=== PATIENT | male | born 1945 | race Caucasian/White ===

== ENCOUNTER 2017-02-11 07:54 | Inpatient (IN) | payer MEDICARE, OTHER ==
[2017-02-11] VITALS (8 sets, daily range): BP systolic 146–187; BP diastolic 82–100; PULSE 82–112; RESP 16–24; TEMP 98.4–102.7; O2SAT 94–98
[~2017-02-11] VITALS: Ht 175.3 cm; Wt 99.0 kg
[~2017-02-11 07:54] MED LIST: ALLO300T2 PO; BETH10TA PO; CARV6.25 PO; CLOP75 PO; CRES20TA PO; EMPA1TAB PO; ERGO50000 PO; IMDU30TA PO; JANU50TA9 PO; LISI-360 PO; MULT1TAB PO; NEUR800T PO; NIAS10004 PO; NITR.4 SL; NORC10TA2 PO; NOVOLOGP2 IMPLANPUMP; PRIM50 PO; PROT40TA PO; TOPA50TA6 PO; UROCTAB2 PO
--- NOTE | 2017-02-11 08:07 | PD ---
HPI Chief Complaint: Neuro Symptoms/ Deficits Time Seen by Provider: 08:07 Travel History International Travel<30 days: No Contact w/Intl Traveler<30days: No Traveled to known affect area: No History of Present Illness HPI 71-year-old male came to the emergency room with history of fever and not feeling well. He is brought in by his sister who is his clutch mechanic. Sister is giving most of the history. Patient has history of significant essential tremor and about a week ago had a deep brain nerve stimulator implanted at [facility]. As per her the surgery went great and he was discharged home the next day. Since then he has been doing fantastic. However yesterday when he went to work he was doing okay but when he came back home he said he was not feeling well and wanted to sleep. This morning he continued to say he wasn't feeling well and his temperature was 101.5. That's when she decided to bring him to the emergency room. Patient is not coughing. No vomiting or diarrhea. He takes Plavix and he resumed his Plavix yesterday after 2 weeks of not taking it. He is complaining of some headache. [facility] Past Medical History Narrative Medical List of his past medical, surgical, social and family history was reviewed from the nursing note. Blood Disorders: No Bipolar Disorder: No Depression: Yes Cancer: No Cardiac Catheterization: Yes Cardiomyopathy: Yes Cardiovascular Problems: Yes High Cholesterol: Yes Chest Pain: Yes Congestive Heart Failure: Yes Coronary Artery Disease: Yes Diabetes: Yes Diminished Hearing: No Endocrine: Yes (insulin pump) Gastrointestinal Disorders: Yes (QUESTIONABLE GASTROPARESIS) Genitourinary: Yes Headaches: Yes Hepatitis: No Hiatal Hernia: No Hypertension: Yes Immune Disorder: No Implanted Vascular Access Dvce: Yes Kidney Stones: Yes Musculoskeletal: Yes (BLE PAIN) Neurologic: Yes (HAND TREMORS) Psychiatric: No Reproductive: No Respiratory: No Myocardial Infarction: Yes (3) Thyroid Disease: No Past Surgical History Abdominal Surgery: Yes (A.P AND CHOLYCESTECTOMY.) AICD: No Appendectomy: Yes Body Medical Devices: INSULIN PUMP, 9 STENTS Cardiac Surgery: Yes (STENTS 2004 AND 2010 , ) Cholecystectomy: Yes Coronary Stent: Yes (X9) Ear Surgery: No Endocrine Surgery: No Eye Surgery: No Genitourinary Surgery: Yes (KIDNEY STONE REMOVED) Gynecologic Surgery: No Insulin Pump: Yes Joint Replacement: No Neurologic Surgery: Yes Oral Surgery: No Pacemaker: No Thoracic Surgery: No Tonsillectomy: Yes Other Surgery: Yes (cholestectomy 9 stents appendectomy) Social History Alcohol Use: No Tobacco Use: No Substance Use: No Allergies-Medications (Allergen,Severity, Reaction): Coded Allergies: diatrizoate meglumine (Unverified Allergy, Unknown, 02/02/17) gadobenic acid (Unverified Allergy, Unknown, 02/02/17) gadodiamide (Unverified Allergy, Unknown, 02/02/17) gadoteridol (Unverified Allergy, Unknown, 02/02/17) iodixanol (Unverified Allergy, Unknown, 02/02/17) iohexol (Unverified Allergy, Unknown, 02/02/17) Comments List of his allergies reviewed from the nursing note. Reported Meds & Prescriptions Reported Meds & Active Scripts Active Reported Oxycodone (Oxycodone HCl) 5 Mg Cap 5 Mg PO Q4H PRN Isosorbide Mononitrate ER (Isosorbide Mononitrate) 30 Mg Parul 90 Mg PO BID Bupropion HCl 100 Mg Tab 100 Mg PO HS Topamax (Topiramate) 100 Mg Tab 100 Mg PO BID Propranolol (Propranolol HCl) 60 Mg Tab 60 Mg PO Q12HR Lisinopril 2.5 Mg Tab 2.5 Mg PO DAILY Primidone 50 Mg Tab 150 Mg PO BID [place] (Hydrocodone-Acetaminophen) 10-325 Mg Tab 1 Tab PO Q6H PRN Neurontin (Gabapentin) 800 Mg Tab 1,600 Mg PO BID Janumet (Sitagliptin-Metformin) 50-1,000 Mg Tab 1 Tab PO BID Atorvastatin (Atorvastatin Calcium) 40 Mg Tab 40 Mg PO HS Niaspan (Niacin ER) 1,000 Mg Tab 1,000 Mg PO HS Plavix (Clopidogrel Bisulfate) 75 Mg Tab 75 Mg PO DAILY Coreg (Carvedilol) 6.25 Mg Tab 6.25 Mg PO BID Urocit-K 10 (Potassium Citrate (Alkalinizer)) 1,080 Mg Tab 10 Meq PO DAILY Centrum Silver Men Tablet (Multivit-Min/FA/Lycopen/Lutein) 1 Each Tablet 1 Tab PO DAILY Narrative Medication List of his home medications reviewed from the nursing note. Review of Systems Except as stated in HPI: all other systems reviewed are Neg Physical Exam Narrative GENERAL: Awake, alert, moderate distress SKIN: Focused skin assessment warm/dry. 3 scalp surgical wounds that seemed to be healing good. There is left subclavicular wound where the stimulator was implanted and the wound appears to be dry and healing well. HEAD: Atraumatic. Normocephalic. EYES: Pupils equal and round. No scleral icterus. No injection or drainage. ENT: No nasal bleeding or discharge. Mucous membranes pink and moist. NECK: Trachea midline. No JVD. Neck is supple and no signs of meningismus. CARDIOVASCULAR: Regular rate and rhythm. No murmur appreciated. RESPIRATORY: No accessory muscle use. Clear to auscultation. Breath sounds equal bilaterally. GASTROINTESTINAL: Abdomen soft, non-tender, nondistended. Hepatic and splenic margins not palpable. MUSCULOSKELETAL: No obvious deformities. No clubbing. No cyanosis. No edema. NEUROLOGICAL: Awake and alert. No obvious cranial nerve deficits. Motor grossly within normal limits. Normal speech. PSYCHIATRIC: Appropriate mood and affect; insight and judgment normal. Data Data Last Documented VS Vital Signs Date Time Temp Pulse Resp B/P (MAP) Pulse Ox O2 Delivery O2 Flow Rate FiO2 02/11/17 11:00 97 16 163/91 (115) 96 02/11/17 09:43 Nasal Cannula 2.00 02/11/17 07:56 98.4 Orders Orders Complete Blood Count With Diff (02/11/17 08:15) Comprehensive Metabolic Panel (02/11/17 08:15) Prothrombin Time / Inr (Pt) (02/11/17 08:15) Lactic Acid Sepsis Protocol (02/11/17 08:15) Urinalysis - C+S If Indicated (02/11/17 08:15) Blood Culture (02/11/17 08:15) Chest, Single Ap (02/11/17 08:15) Blood Glucose (02/11/17 08:15) Ecg Monitoring (02/11/17 08:15) Iv Access Insert/Monitor (02/11/17 08:15) Oximetry (02/11/17 08:15) Oxygen Administration (02/11/17 08:15) Ct Brain W/O Iv Contrast(Rout) (02/11/17 08:15) Morphine Inj (Morphine Inj) (02/11/17 08:15) Ondansetron Inj (Zofran Inj) (02/11/17 08:15) Sodium Chlorid 0.9% 500 Ml Inj (Ns 500 M (02/11/17 08:15) Urine Culture (02/11/17 08:28) Sodium Chlor 0.9% 1000 Ml Inj (Ns 1000 M (02/11/17 09:30) Piperacil-Tazo 4.5 Gm Premix (Zosyn 4.5 (02/11/17 10:15) Vancomycin Inj (Vancomycin Inj) (02/11/17 10:15) Fentanyl Inj (Fentanyl Inj) (02/11/17 11:00) Admit Order (Ed Use Only) (02/11/17 11:48) Labs Laboratory Tests Test 02/11/17 08:20 02/11/17 08:28 02/11/17 11:30 White Blood Count 14.2 TH/MM3 Red Blood Count 4.02 MIL/MM3 Hemoglobin 12.9 GM/DL Hematocrit 40.3 % Mean Corpuscular Volume 100.4 FL Mean Corpuscular Hemoglobin 32.2 PG Mean Corpuscular Hemoglobin Concent 32.1 % Red Cell Distribution Width 13.6 % Platelet Count 196 TH/MM3 Mean Platelet Volume 7.5 FL Neutrophils (%) (Auto) 88.0 % Lymphocytes (%) (Auto) 5.8 % Monocytes (%) (Auto) 6.1 % Eosinophils (%) (Auto) 0.0 % Basophils (%) (Auto) 0.1 % Neutrophils # (Auto) 12.5 TH/MM3 Lymphocytes # (Auto) 0.8 TH/MM3 Monocytes # (Auto) 0.9 TH/MM3 Eosinophils # (Auto) 0.0 TH/MM3 Basophils # (Auto) 0.0 TH/MM3 CBC Comment DIFF FINAL Differential Comment Prothrombin Time 11.5 SEC Prothromb Time International Ratio 1.0 RATIO Blood Urea Nitrogen 27 MG/DL Creatinine 1.58 MG/DL Random Glucose 311 MG/DL Total Protein 7.1 GM/DL Albumin 3.5 GM/DL Calcium Level 8.9 MG/DL Alkaline Phosphatase 84 U/L Aspartate Amino Transf (AST/SGOT) 38 U/L Alanine Aminotransferase (ALT/SGPT) 30 U/L Total Bilirubin 1.3 MG/DL Sodium Level 134 MEQ/L Potassium Level 4.2 MEQ/L Chloride Level 99 MEQ/L Carbon Dioxide Level 22.2 MEQ/L Anion Gap 13 MEQ/L Estimat Glomerular Filtration Rate 44 ML/MIN Urine Color YELLOW Urine Turbidity CLEAR Urine pH 6.0 Urine Specific [place] 1.026 Urine Protein 300 mg/dL Urine Glucose (UA) 1000 mg/dL Urine Ketones 80 mg/dL Urine Occult Blood MOD Urine Nitrite NEG Urine Bilirubin NEG Urine Urobilinogen LESS THAN 2.0 MG/DL Urine Leukocyte Esterase NEG Urine RBC 2 /hpf Urine WBC 1 /hpf Urine Squamous Epithelial Cells <1 /hpf Urine Bacteria OCC /hpf Urine Hyaline Casts 3 /lpf Urine Mucus FEW /lpf Microscopic Urinalysis Comment CATH-CULTURE IND Lactic Acid Level 2.3 mmol/L 1.4 mmol/L MDM Medical Decision Making Medical Screen Exam Complete: Yes Emergency Medical Condition: Yes Medical Record Reviewed: Yes Differential Diagnosis Sepsis, meningitis, postop fever, UTI, pneumonia Narrative Course 11:46 AM blood test results are back. Patient has leukocytosis and elevated lactic acid. He was given total of 1500 ML's of fluid and IV Zosyn and IV vancomycin as per sepsis protocol. I discussed the case with patient's neurosurgeon from [facility] Dr. Crum. As per him patient could not have infection from the surgical implantation. CT scan just shows postop changes. As per him there is no particular reason to be transferring the patient to [place] and it's okay for him to be admitted at [facility]. The hospitalist at [facility] could communicate with him or his group for any further assistance. I discussed the case with the hospitalist who has accepted. I discussed it with patient's sister regarding the plan and she is happy with it. Critical Care Narrative Aggregate critical care time was 30 minutes. Time to perform other separately billable procedures was not included in the critical care time. My time did not include minutes spent treating any other patients simultaneously or on activities that did not directly contribute to the patient's treatment. The services I provided to this patient were to treat and/or prevent clinically significant deterioration that could result in: Sepsis, sepsis protocol I provided critical care services requiring my management, as noted below: Chart data review, documentation time, medication orders and management, vital sign assessments/reviewing monitor data, ordering and reviewing lab tests, ordering and interpreting/reviewing x-rays and diagnostic studies, care of the patient and discussion of the patient with the admitting physicians. Procedures EKG Prior to Arrival: No Physician Communication Physician Communication Dr. Dunaway from [facility] Diagnosis Primary Impression: Sepsis Qualified Codes: A41.9 - Sepsis, unspecified organism Admitting Information Admitting Physician Requests: Rafael Sharma MD Feb 11, 2017 08:07
[2017-02-11] MEDS ORDERED: ONDANSETRON HCL 4 MG/2 ML VIAL IV PUSH ONE (08:15)
[2017-02-11] MEDS ORDERED: SODIUM CHLORID 0.9% 500 ML INJ 500 ML IV ONE (08:15)
[2017-02-11] MEDS ORDERED: MORPHINE SULFATE 8 MG/ML INJ IV PUSH ONE (08:15)
[2017-02-11] MEDS ORDERED: MULT1TAB64 PO (08:58)
[2017-02-11] MEDS ORDERED: JANU50TA8 PO (08:58)
[2017-02-11] MEDS ORDERED: UROCTAB2 PO (08:58)
[2017-02-11] MEDS ORDERED: CARV6.25 PO (08:58)
[2017-02-11] MEDS ORDERED: PLAV75TA29 PO (08:58)
[2017-02-11] MEDS ORDERED: ATOR40TA16 PO (08:58)
[2017-02-11] MEDS ORDERED: NIAS1000 PO (08:58)
[2017-02-11] MEDS ORDERED: PRIM50TA5 PO (08:59)
[2017-02-11] MEDS ORDERED: ISOS30TA3 PO (08:59)
[2017-02-11] MEDS ORDERED: OXYC1CAP PO (08:59)
[2017-02-11] MEDS ORDERED: HYDR-3366 PO (08:59)
[2017-02-11] MEDS ORDERED: BUPR100T4 PO (08:59)
[2017-02-11] MEDS ORDERED: LISI2.5T3 PO (08:59)
[2017-02-11] MEDS ORDERED: NEUR800T PO (08:59)
[2017-02-11] MEDS ORDERED: PROP60TA PO (08:59)
[2017-02-11] MEDS ORDERED: TOPA100T11 PO (08:59)
[2017-02-11 09:00] LABS: AUTOMATED NEUTROPHIL # 12.5 TH/MM3 (1.8-7.7); BASOPHIL % 0.1 % (0.0-2.0); HEMATOCRIT 40.3 % (39.0-51.0); HEMO FLAGS DIFF FINAL; LYMPH % 5.8 % (9.0-44.0); LYMPHOCYTE # 0.8 TH/MM3 (1.0-4.8); MEAN CELL VOLUME 100.4 FL (80.0-100.0); MEAN CORPUSCULAR HEMOGLOBIN 32.2 PG (27.0-34.0); MEAN CORPUSCULAR HGB CONC 32.1 % (32.0-36.0); MONO % 6.1 % (0.0-8.0); PLATELET COUNT 196 TH/MM3 (150-450); RED BLOOD COUNT 4.02 MIL/MM3 (4.50-5.90); RED CELL DISTRIBUTION WIDTH 13.6 % (11.6-17.2); WHITE BLOOD COUNT 14.2 TH/MM3 (4.0-11.0)
[2017-02-11 09:06] LABS: BACTERIA, URINE OCC /hpf; BLOOD, URINE MOD (NEG); GLUCOSE,URINE 1000 mg/dL (NEG); HYALINE CAST, URINE 3 /lpf (RARE); KETONE, URINE 80 mg/dL (NEG); MUCUS URINE FEW /lpf (OCC); NITRITE,URINE NEG (NEG); SQUAMOUS EPITHELIAL CELL URINE <1 /hpf (0-5); URINE COLOR YELLOW (YELLW/STRAW)
--- NOTE | 2017-02-11 09:06 | RADRPT ---
EXAM DATE/TIME: 02/11/2017 08:26 [facility] COMPARISON: CHEST SINGLE AP, March 13, 2015, 10:04. INDICATIONS : Fever, congestion. MEDICAL HISTORY : Hypertension. Myocardial infarction. Diverticulosis. CHF. SURGICAL HISTORY : Coronary artery stent. DBS battery pack. ENCOUNTER: Initial ACUITY: 2 days PAIN SCORE: 0/10 LOCATION: Bilateral chest FINDINGS: Underinflated AP view of the chest demonstrates a normal-sized cardiac silhouette. No effusion or pne umothorax is identified. Bones and soft tissues demonstrate no acute finding. Left chest wall neurost imulator device is present with lead tips extending into the left neck. CONCLUSION: Underinflation with mild atelectasis at the lung bases. No acute cardiopulmonary abnormality is visua lized. Martir Cummings MD on February 11, 2017 at 9:02 Board Certified Radiologist. This report was verified electronically.
[2017-02-11 09:09] LABS: PROTHROMBIN TIME - PATIENT 11.5 SEC (9.8-11.6)
[2017-02-11 09:14] LABS: COMMENT (UR) CATH-CULTURE IND; CULTURE IF INDICATED CATH CULTURE IND
[2017-02-11] MEDS ORDERED: SODIUM CHLOR 0.9% 1000 ML INJ 1,000 ML IV ONE (09:30)
--- NOTE | 2017-02-11 09:39 | RADRPT ---
EXAM DATE/TIME: 02/11/2017 08:53 [facility] COMPARISON: CT BRAIN W/O CONTRAST, July 16, 2014, 9:58. INDICATIONS : 2 days post op neurotransmitter implant. Fever, weakness. RADIATION DOSE: 41.37 CTDIvol (mGy) MEDICAL HISTORY : Cardiovascular disease. Tremors SURGICAL HISTORY : Appendectomy. Cholecystectomy.Coronary artery stent.neurotransmitter implant ENCOUNTER: Initial ACUITY: 2 days PAIN SCALE: 0/10 LOCATION: cranial TECHNIQUE: Multiple contiguous axial images were obtained of the head. Using automated exposure control and adj ustment of the mA and/or kV according to patient size, radiation dose was kept as low as reasonably a chievable to obtain optimal diagnostic quality images. DICOM format image data is available electro nically for review and comparison. FINDINGS: CEREBRUM: There is mild cerebral atrophy. Ventricles are normal. There is a left frontal deep brain stimulator lead present with distal tip in the region of the left basal ganglia and thalamus. There is extra-axi al air in the left frontal high convexity and air in the left temporal horn. No evidence of midline shift, mass lesion, hemorrhage or acute infarction. No extra-axial fluid collections are seen. POSTERIOR FOSSA: The cerebellum and brainstem demonstrate no acute finding. The 4th ventricle is midline. The cerebe llopontine angle is unremarkable. EXTRACRANIAL: There is left lateral scalp edema adjacent to the stimulator lead. SKULL: The calvaria is intact. No evidence of skull fracture. CONCLUSION: 1. There is intracranial air and left scalp edema, consistent with deep brain stimulator placement 2 days ago. The distal tip of the deep brain stimulator is in the region of the left basal ganglia and thalamus. 2. Otherwise, no acute finding is identified. Martir Cummings MD on February 11, 2017 at 9:22 Board Certified Radiologist. This report was verified electronically.
[2017-02-11 09:45] LABS: ALT (GPT) 30 U/L (12-78); ANION GAP 13 MEQ/L (5-15); AST (GOT) 38 U/L (15-37); BICARBONATE 22.2 MEQ/L (21.0-32.0); BLOOD UREA NITROGEN 27 MG/DL (7-18); CHLORIDE 99 MEQ/L (98-107); GLOMERULAR FILTRATION RATE 44 ML/MIN (>89); POTASSIUM 4.2 MEQ/L (3.5-5.1); SODIUM (NA) 134 MEQ/L (136-145)
[2017-02-11 09:48] LABS: ALKALINE PHOSPHATASE 84 U/L (45-117); TOTAL BILIRUBIN ADULT 1.3 MG/DL (0.2-1.0)
[2017-02-11] MEDS ORDERED: VANCOMYCIN INJ 1,000 MG in SODIUM CHLOR 0.9% 250 ML INJ 250 ML IV ONE (10:15)
[2017-02-11] MEDS ORDERED: PIPERACIL-TAZO 4.5 GM PREMIX 100 ML IV ONE (10:15)
[2017-02-11 10:50] LABS: LACTIC ACID GHOST NOT REPORTABLE
[2017-02-11] MEDS ORDERED: GLUCAGON 1 MG/ML VIAL OTHER PRN (13:00)
[2017-02-11] MEDS ORDERED: DEXTROSE 50% IN WATER 50 ML VIAL(D50) IV PRN (13:00)
[2017-02-11] MEDS ORDERED: Vancomycin Consult Pharmacy 1 EA OTHER SCH (13:15)
[2017-02-11] MEDS ORDERED: VANCOMYCIN INJ 1,000 MG in SODIUM CHLOR 0.9% 250 ML INJ 250 ML IV SCH (13:15)
[2017-02-11] MEDS: SODIUM CHLOR 0.9% 1000 ML INJ 1,000 ML IV SCH (16:01)
--- NOTE | 2017-02-11 16:26 | HHI.HP ---
HPI Service [facility] Primary Care Physician Martir Pringle, DO Admission Diagnosis sepsis Diagnoses: Chief Complaint: fever, tremors Travel History International Travel<30 Days: No Contact w/Intl Traveler <30 Da: No Traveled to Known Affected Are: No History of Present Illness Mr. Torres is a 71-year-old white male with significant past medical history of hypertension, hyperlipidemia, coronary artery disease and primary cardial infarction with stent, type 2 diabetes. Patient has had a history of essential tremors that was initially treated with medications per Dr. Zacarias. Because of worsening symptoms, he was referred to the [facility]. Patient underwent placement of a deep brain nerve stimulator approximately a week ago. Patient initially did well for the first couple of days, tremors did improve. Today, patient was brought into the emergency room for worsening fever. Patient is somewhat confused and unable to provide details. Daughter is at bedside providing some details. Patient lives with his sister and [id number]. Apparently they were trying to manage his fever at home and was noted more tired and wanting to sleep. This morning his temperature was up to 101.5. There is no reported coughing, no sputum, no vomiting, no diarrhea. He complained of a mild headache. In the emergency room, patient was evaluated. Laboratory workup was completed. CBC remarkable for leukocytosis, WBC of 14.2, . BMP remarkable for BUN of 27, creatinine 1.58, random glucose of 311. Lactic acid was 2.3. Total bilirubin 1.3 AST 38. Sodium 134. Urinalysis positive for proteinuria and glycosuria. Culture is pending. CT of the head show intracranial air and left scalp edema, consistent with deep brain stimulator placement days ago. The distal tip of the brain stimulator is in the region of the left basal ganglia and thalamus. No acute findings identified. Chest x-ray showed Nakul deflation one-mile atelectasis at the lung bases. No acute cardiopulmonary abnormality. Patient was afebrile, temperature 98.4, pulse rate 100, respiratory rate 18, blood pressure 187/100, sats 98%. Patient was given fluid resuscitation with 1500 cc of fluids and started on IV Zosyn and ankle. Patient's neurosurgeon at the [facility], Dr. Dunaway was contacted. As per his statement, patient could have infection from the surgical implantation. CT scan shows postop changes. Per Dr. Dunaway, there is no particular reason to be transferring the patient to [facility] and it's okay for him to be admitted to [place]. At this time, patient is examined in the presence of his daughter. He is noted with fever again, he desatted to 84% on room air; was placed on 2 L nasal cannula. Sats are up to 94%. Patient has incisions on his scalp from recent surgery, they are intact, no erythema. Has incision to the left chest wall that is erythematous, there is some crusting noted, no exudate, no odor. Patient has insulin pump in place which has been turned off. His blood glucose is 200. Patient is admitted for further evaluation and treatment. Review of Systems ROS Limitations: Clinical Condition, Altered Mental Status Constitutional: COMPLAINS OF: Fever, DENIES: Diaphoretic episodes, Fatigue, Weight gain, Weight loss, Chills, Dizziness, Change in appetite, Night Sweats Endocrine: DENIES: Heat/cold intolerance, Polydipsia, Polyuria, Polyphagia Eyes: DENIES: Blurred vision, Diplopia, Eye inflammation, Eye pain, Vision loss , Photosensitivity, Double Vision Ears, nose, mouth, throat: DENIES: Tinnitus, Hearing loss, Vertigo, Nasal discharge, Oral lesions, Throat pain, Hoarseness, Ear Pain, Running Nose, Epistaxis, Sinus Pain, Toothache, Odynophagia Respiratory: DENIES: Apneas, Cough, Snoring, Wheezing, Hemoptysis, Sputum production, Shortness of breath Cardiovascular: DENIES: Chest pain, Palpitations, Syncope, Dyspnea on Exertion , PND, Lower Extremity Edema, Orthopnea, Claudication Gastrointestinal: DENIES: Abdominal pain, Black stools, Bloody stools, Constipation, Diarrhea, Nausea, Vomiting, Difficulty Swallowing, Anorexia Genitourinary: DENIES: Sexual dysfunction, Urinary frequency, Urinary incontinence, Urgency, Hematuria, Dysuria, Nocturia, Penile Discharge, Testicular Pain, Testicular Swelling Musculoskeletal: DENIES: Joint pain, Muscle aches, Stiffness, Joint Swelling, Back pain, Neck pain Integumentary: DENIES: Abnormal pigmentation, Nail changes, Pruritus, Rash Hematologic/lymphatic: DENIES: Bruising, Lymphadenopathy Immunologic/allergic: DENIES: Eczema, Urticaria Neurologic: COMPLAINS OF: Abnormal gait, Tremor, Poor Balance, DENIES: Headache , Localized weakness, Paresthesias, Seizures, Speech Problems Psychiatric: COMPLAINS OF: Anxiety, Confusion, DENIES: Mood changes, Depression , Hallucinations, Agitation, Suicidal Ideation, Homicidal Ideation, Delusions Past Family Social History Past Medical History CAD, [place] Cardiomyopathy Hyperlipidemia DM-has insulin pump Headache HTN Kidney stones Essential tremors. Past Surgical History Cholecystectomy Appendectomy Cardiac catheterization Kidney stone removal Vasectomy status post deep brain nerve stimulator implanted at [facility]. Reported Medications Reported Meds & Active Scripts Active Reported Oxycodone (Oxycodone HCl) 5 Mg Cap 5 Mg PO Q4H PRN Isosorbide Mononitrate ER (Isosorbide Mononitrate) 30 Mg Parul 90 Mg PO BID Bupropion HCl 100 Mg Tab 100 Mg PO HS Topamax (Topiramate) 100 Mg Tab 100 Mg PO BID Propranolol (Propranolol HCl) 60 Mg Tab 60 Mg PO Q12HR Lisinopril 2.5 Mg Tab 2.5 Mg PO DAILY Primidone 50 Mg Tab 150 Mg PO BID [place] (Hydrocodone-Acetaminophen) 10-325 Mg Tab 1 Tab PO Q6H PRN Neurontin (Gabapentin) 800 Mg Tab 1,600 Mg PO BID Janumet (Sitagliptin-Metformin) 50-1,000 Mg Tab 1 Tab PO BID Atorvastatin (Atorvastatin Calcium) 40 Mg Tab 40 Mg PO HS Niaspan (Niacin ER) 1,000 Mg Tab 1,000 Mg PO HS Plavix (Clopidogrel Bisulfate) 75 Mg Tab 75 Mg PO DAILY Coreg (Carvedilol) 6.25 Mg Tab 6.25 Mg PO BID Urocit-K 10 (Potassium Citrate (Alkalinizer)) 1,080 Mg Tab 10 Meq PO DAILY Centrum Silver Men Tablet (Multivit-Min/FA/Lycopen/Lutein) 1 Each Tablet 1 Tab PO DAILY Allergies: Coded Allergies: diatrizoate meglumine (Unverified Allergy, Unknown, 02/02/17) gadobenic acid (Unverified Allergy, Unknown, 02/02/17) gadodiamide (Unverified Allergy, Unknown, 02/02/17) gadoteridol (Unverified Allergy, Unknown, 02/02/17) iodixanol (Unverified Allergy, Unknown, 02/02/17) iohexol (Unverified Allergy, Unknown, 02/02/17) Active Ordered Medications Inpatient Medications Acetaminophen/ Hydrocodone Bitart ([place] 10-325 Mg) 1 tab Q6H PRN PO PAIN; Start 02/11/17 at 13:00; Status UNV Atorvastatin Calcium (Lipitor) 40 mg HS PO ; Start 02/11/17 at 21:00; Status UNV Bupropion HCl (Wellbutrin) 100 mg HS PO ; Start 02/11/17 at 21:00; Status UNV Carvedilol (Coreg) 6.25 mg BID PO ; Start 02/11/17 at 21:00; Status UNV Clopidogrel Bisulfate (Plavix) 75 mg DAILY PO ; Start 02/12/17 at 09:00; Status UNV Dextrose (D50w (Vial) Inj) 50 ml UNSCH PRN IV HYPOGLYCEMIA-SEE COMMENTS; Start 02/11/17 at 13:00; Status UNV Fentanyl Citrate (fentaNYL INJ) 50 mcg ONCE ONCE IV PUSH Last administered on 02/11/17 11:38; Start 02/11/17 at 11:00; Stop 02/11/17 at 11:01; Status DC Gabapentin (Neurontin) 1,600 mg BID PO ; Start 02/11/17 at 21:00; Status UNV Glucagon (Glucagon Inj) 1 mg UNSCH PRN OTHER HYPOGLYCEMIA-SEE COMMENTS; Start 02/11/17 at 13:00; Status UNV Insulin Aspart (NovoLOG SUPPLEMENTAL SCALE) 1 ACHS SLIDING SCALE SQ ; Start at 16:00; Status UNV Isosorbide Mononitrate (Imdur) 90 mg BID PO ; Start 02/11/17 at 21:00; Status UNV Morphine Sulfate (Morphine Inj) 5 mg ONCE ONCE IV PUSH Last administered on 08:35; Start 02/11/17 at 08:15; Stop 02/11/17 at 08:17; Status DC Non-Formulary Medication 1 tab BID PO ; Start 02/11/17 at 21:00; Status UNV Ondansetron HCl (Zofran Inj) 4 mg ONCE ONCE IV PUSH Last administered on 08:35; Start 02/11/17 at 08:15; Stop 02/11/17 at 08:17; Status DC Pharmacy Profile Note 0 ml @ 0 mls/hr UNSCH OTHER ; Start 02/11/17 at 13:15; Status UNV Piperacillin Sod/ Tazobactam Sod 50 ml @ 100 mls/hr Q6H IV ; Start 02/11/17 at 13:15; Status UNV Primidone (Mysoline) 150 mg BID PO ; Start 02/11/17 at 21:00; Status UNV Sodium Chloride 1,000 ml @ 84 mls/hr [id number] IV Last administered on t 16:01; Start 02/11/17 at 13:15 Topiramate (Topamax) 100 mg BID PO ; Start 02/11/17 at 21:00; Status UNV Vancomycin HCl 1000 mg/Sodium Chloride 250 ml @ 250 mls/hr Q24H IV ; Start at 13:15; Status UNV Family History (Edith Grfaf) Mother from kidney disease; father from CAD. Social History No tobacco, etoh, or illicit drug use. Physical Exam Vital Signs Vital Signs Date Time Temp Pulse Resp B/P (MAP) Pulse Ox O2 Delivery O2 Flow Rate FiO2 02/11/17 11:00 97 16 163/91 (115) 96 02/11/17 10:00 96 18 161/86 (111) 97 02/11/17 09:43 98 18 161/86 (111) 97 Nasal Cannula 2.00 02/11/17 08:26 Room Air 02/11/17 08:26 Room Air 02/11/17 08:13 98 18 98 Room Air 02/11/17 07:56 98.4 100 18 187/100 (129) 98 Physical Exam GENERAL: This is a well-nourished, well-developed patient, patient is restless, attempting to get out of bed. SKIN: Skin warm and dry. Bruising noted to right foot. HEAD: Normocephalic. No temporal or scalp tenderness. Elliptical incision to left frontal scalp, no exudate noted. There is another surgical incision to the left posterior scalp. EYES: Pupils equal round and reactive. Extraocular motions intact. No scleral icterus. No injection or drainage. ENT: Nose without bleeding, purulent drainage or septal hematoma. Throat without erythema, tonsillar hypertrophy or exudate. Uvula midline. Airway patent. NECK: Trachea midline. No JVD or lymphadenopathy. Supple, nontender, no meningeal signs. CARDIOVASCULAR: Regular rate and rhythm without murmurs, gallops, or rubs. RESPIRATORY: Clear to auscultation. Breath sounds equal bilaterally. No wheezes , rales, or rhonchi. CHEST: Left chest wall with incision from stimulator, it is erythematous, scabbed over. No exudate noted. GASTROINTESTINAL: Abdomen soft, non-tender, nondistended. No hepato-splenomegaly , or palpable masses. No guarding. Insulin pump noted to right lower abdomen. MUSCULOSKELETAL: Extremities without clubbing, cyanosis, or edema. No joint tenderness, effusion, or edema noted. No calf tenderness. Negative Homans sign bilaterally. NEUROLOGICAL: Patient is awake, restless, he knows he is in the hospital, oriented to self and others. Following simple commands. Tremors noted to both upper extremities, left greater than right. Laboratory Laboratory Tests Test 02/11/17 08:20 02/11/17 08:28 02/11/17 11:30 White Blood Count 14.2 Red Blood Count 4.02 Hemoglobin 12.9 Hematocrit 40.3 Mean Corpuscular Volume 100.4 Mean Corpuscular Hemoglobin 32.2 Mean Corpuscular Hemoglobin Concent 32.1 Red Cell Distribution Width 13.6 Platelet Count 196 Mean Platelet Volume 7.5 Neutrophils (%) (Auto) 88.0 Lymphocytes (%) (Auto) 5.8 Monocytes (%) (Auto) 6.1 Eosinophils (%) (Auto) 0.0 Basophils (%) (Auto) 0.1 Neutrophils # (Auto) 12.5 Lymphocytes # (Auto) 0.8 Monocytes # (Auto) 0.9 Eosinophils # (Auto) 0.0 Basophils # (Auto) 0.0 CBC Comment DIFF FINAL Differential Comment Prothrombin Time 11.5 Prothromb Time International Ratio 1.0 Blood Urea Nitrogen 27 Creatinine 1.58 Random Glucose 311 Total Protein 7.1 Albumin 3.5 Calcium Level 8.9 Alkaline Phosphatase 84 Aspartate Amino Transf (AST/SGOT) 38 Alanine Aminotransferase (ALT/SGPT) 30 Total Bilirubin 1.3 Sodium Level 134 Potassium Level 4.2 Chloride Level 99 Carbon Dioxide Level 22.2 Anion Gap 13 Estimat Glomerular Filtration Rate 44 Urine Color YELLOW Urine Turbidity CLEAR Urine pH 6.0 Urine Specific [place] 1.026 Urine Protein 300 Urine Glucose (UA) 1000 Urine Ketones 80 Urine Occult Blood MOD Urine Nitrite NEG Urine Bilirubin NEG Urine Urobilinogen LESS THAN 2.0 Urine Leukocyte Esterase NEG Urine RBC 2 Urine WBC 1 Urine Squamous Epithelial Cells <1 Urine Bacteria OCC Urine Hyaline Casts 3 Urine Mucus FEW Microscopic Urinalysis Comment CATH-CULTURE IND Lactic Acid Level 2.3 1.4 Date/Time Source Procedure Growth Status 02/11/17 08:20 Blood Peripheral Aerobic Blood Culture Pending Received 02/11/17 08:20 Blood Peripheral Anaerobic Blood Culture Pending Received 02/11/17 08:28 Urine Catheterized Urine Urine Culture Pending Received Result Diagram: 02/11/1781902/11/17819 Imaging Last Impressions Head CT 02/11/17814 Signed Impressions: Service Date/Time: Saturday, February 11, 2017 08:53 - CONCLUSION: 1. There is intracranial air and left scalp edema, consistent with deep brain stimulator placement 2 days ago. The distal tip of the deep brain stimulator is in the region of the left basal ganglia and thalamus. 2. Otherwise, no acute finding is identified. Martir Cummings MD Chest X-Ray 02/11/17814 Signed Impressions: Service Date/Time: Saturday, February 11, 2017 08:26 - CONCLUSION: Underinflation with mild atelectasis at the lung bases. No acute cardiopulmonary abnormality is visualized. MD Dalia Lopes VTE Risk Assessment Caprini VTE Risk Assessment: Mod/High Risk (score >= 2) Caprini Risk Assessment Model Point Value = 1 Point Value = 2 Point Value = 3 Point Value = 5 Age 41-60 Minor surgery BMI > 25 kg/m2 Swollen legs Varicose veins or History of unexplained or recurrent spontaneous Oral contraceptives or hormone replacement Sepsis (< 1 month) Serious lung disease, including pneumonia (< 1 month) Abnormal pulmonary function Acute myocardial infarction Congestive heart failure (< 1 month) History of inflammatory bowel disease Medical patient at bed rest Age 61-74 Arthroscopic surgery Major open surgery (> 45 min) Laparoscopic surgery (> 45 min) Malignancy Confined to bed (> 72 hours) Immobilizing plaster cast Central venous access Age >= 75 History of VTE Family history of VTE Factor V Leiden Prothrombin [id number] Lupus anticoagulant Anticardiolipin antibodies Elevated serum homocysteine Heparin-induced thrombocytopenia Other congenital or acquired thrombophilia Stroke (< 1 month) Elective arthroplasty Hip, pelvis, or leg fracture Acute spinal cord injury (< 1 month) Prophylaxis Regimen Total Risk Factor Score Risk Level Prophylaxis Regimen 0-1 Low Early ambulation 2 Moderate Order ONE of the following: *Sequential Compression Device (SCD) *Heparin 5000 units SQ BID 3-4 Higher Order ONE of the following medications: *Heparin 5000 units SQ TID *Enoxaparin/Lovenox 40 mg SQ daily (WT < 150 kg, CrCl > 30 mL/min) *Enoxaparin/Lovenox 30 mg SQ daily (WT < 150 kg, CrCl > 10-29 mL/min) *Enoxaparin/Lovenox 30 mg SQ BID (WT < 150 kg, CrCl > 30 mL/min) AND/OR *Sequential Compression Device (SCD) 5 or more Highest Order ONE of the following medications: *Heparin 5000 units SQ TID (Preferred with Epidurals) *Enoxaparin/Lovenox 40 mg SQ daily (WT < 150 kg, CrCl > 30 mL/min) *Enoxaparin/Lovenox 30 mg SQ daily (WT < 150 kg, CrCl > 10-29 mL/min) *Enoxaparin/Lovenox 30 mg SQ BID (WT < 150 kg, CrCl > 30 mL/min) AND *Sequential Compression Device (SCD) Assessment and Plan Problem List: (1) Sepsis ICD Codes: A41.9 - Sepsis, unspecified organism Status: Acute (2) Altered mental status ICD Codes: R41.82 - Altered mental status, unspecified Status: Acute (3) recent deep brain stimulator placement (4) Lactic acid acidosis ICD Codes: E87.2 - Acidosis Status: Acute (5) Hypertension ICD Codes: I10 - Hypertension Status: Chronic (6) Diabetes mellitus ICD Codes: E11.9 - Diabetes mellitus Status: Chronic (7) Hyperlipidemia ICD Codes: E78.5 - Hyperlipidemia Status: Chronic (8) Chronic kidney disease ICD Codes: N18.9 - Chronic kidney disease Status: Chronic (9) CAD (coronary artery disease) ICD Codes: I25.9 - CAD (coronary artery disease) Status: Chronic Assessment and Plan Admit to Dr. Garcia 71-year-old male with recent placement of a deep brain stimulator. Presented to the emergency room with altered mental status, fever. Sepsis, etiology unclear, recent placement of deep brain stimulator. -Continue with antibiotics -Follow cultures closely -Consult infectious disease for assistance -We'll increase IV fluids to normal saline at 100 hour -Lactic acid has improved, 1.4 Altered mental status, likely multifactorial, sepsis -Monitor neuro status Essential tremors, recent placement of deep brain stimulator -Continue to monitor neuro status -Physical therapy for evaluation in the morning -Continue Mysoline -Continue Topamax Type 2 diabetes, has insulin pump -Patient was put on Accu-Cheks before meals and at bedtime with insulin protocol -Pump has been removed Coronary artery disease History myocardial infarction and stents. -Home medications reviewed and initiated Hypertension -Home medications reviewed and initiated Chronic kidney disease -Continue with IV fluids -Monitor renal function Home medications reviewed, initiated as indicated SCDs for DVT prophylaxis Plan of care has been discussed with the patient, his daughter, attending, RN. Further management of the patient will be dependent on the hospital course This patient was seen by myself and Dr. Garcia, this H&P is written on his behalf Physician Certification 2 Midnight Certification Type: Admission for Inpatient Services Order for Inpatient Services The services are ordered in accordance with Medicare regulations or non- Medicare payer requirements, as applicable. In the case of services not specified as inpatient-only, they are appropriately provided as inpatient services in accordance with the 2-midnight benchmark. Estimated LOS (days): 2 2 days is the estimated time the patient will need to remain in the hospital, assuming treatment plan goals are met and no additional complications. Post-Hospital Plan: Not yet determined Problem Qualifiers (1) Sepsis: Qualified Codes: A41.9 - Sepsis, unspecified organism (2) Altered mental status: Qualified Codes: R41.82 - Altered mental status, unspecified (3) Diabetes mellitus: Qualified Codes: E11.8 - Type 2 diabetes mellitus with unspecified complications (4) Chronic kidney disease: Qualified Codes: N18.3 - Chronic kidney disease, stage 3 (moderate) Tangela Nelson Feb 11, 2017 16:26
[2017-02-11] MEDS: ACETAMINOPHEN 325 MG TAB PO PRN (16:44)
[2017-02-11] MEDS ORDERED: PILL SPLITTER OTHER PRN (16:45)
[2017-02-11] MEDS ORDERED: VANCOMYCIN 1,000 MG/NS 250 ML IV SCH ×2 (17:00)
[2017-02-11] MEDS: INSULIN ASPART SUPPLEMENTAL SCALE SQ SCH ×2 (17:03→21:00)
[2017-02-11] MEDS ORDERED: VANCOMYCIN 1,000 MG/NS 250 ML IV ONE ×2 (17:15)
[2017-02-11] MEDS: PIPERACIL-TAZO 3.375 GM PREMIX 50 ML IV SCH ×2 (17:46→23:59)
--- NOTE | 2017-02-11 17:57 | HHI.PR ---
Objective Objective Results - Vital Signs Date Time Temp Pulse Resp B/P (MAP) Pulse Ox O2 Delivery O2 Flow Rate FiO2 02/11/17 11:00 97 16 163/91 (115) 96 02/11/17 10:00 96 18 161/86 (111) 97 02/11/17 09:43 98 18 161/86 (111) 97 Nasal Cannula 2.00 02/11/17 08:26 Room Air 02/11/17 08:26 Room Air 02/11/17 08:13 98 18 98 Room Air 02/11/17 07:56 98.4 100 18 187/100 (129) 98 Result Diagram: 02/11/1781902/11/17819 Imaging Last Impressions Head CT 02/11/17814 Signed Impressions: Service Date/Time: Saturday, February 11, 2017 08:53 - CONCLUSION: 1. There is intracranial air and left scalp edema, consistent with deep brain stimulator placement 2 days ago. The distal tip of the deep brain stimulator is in the region of the left basal ganglia and thalamus. 2. Otherwise, no acute finding is identified. Martir Cummings MD Chest X-Ray 02/11/17814 Signed Impressions: Service Date/Time: Saturday, February 11, 2017 08:26 - CONCLUSION: Underinflation with mild atelectasis at the lung bases. No acute cardiopulmonary abnormality is visualized. Martir Cummings MD Other Results Laboratory Tests Test 02/11/17 08:20 02/11/17 08:28 02/11/17 11:30 White Blood Count 14.2 Red Blood Count 4.02 Hemoglobin 12.9 Hematocrit 40.3 Mean Corpuscular Volume 100.4 Mean Corpuscular Hemoglobin 32.2 Mean Corpuscular Hemoglobin Concent 32.1 Red Cell Distribution Width 13.6 Platelet Count 196 Mean Platelet Volume 7.5 Neutrophils (%) (Auto) 88.0 Lymphocytes (%) (Auto) 5.8 Monocytes (%) (Auto) 6.1 Eosinophils (%) (Auto) 0.0 Basophils (%) (Auto) 0.1 Neutrophils # (Auto) 12.5 Lymphocytes # (Auto) 0.8 Monocytes # (Auto) 0.9 Eosinophils # (Auto) 0.0 Basophils # (Auto) 0.0 CBC Comment DIFF FINAL Differential Comment Prothrombin Time 11.5 Prothromb Time International Ratio 1.0 Blood Urea Nitrogen 27 Creatinine 1.58 Random Glucose 311 Total Protein 7.1 Albumin 3.5 Calcium Level 8.9 Alkaline Phosphatase 84 Aspartate Amino Transf (AST/SGOT) 38 Alanine Aminotransferase (ALT/SGPT) 30 Total Bilirubin 1.3 Sodium Level 134 Potassium Level 4.2 Chloride Level 99 Carbon Dioxide Level 22.2 Anion Gap 13 Estimat Glomerular Filtration Rate 44 Urine Color YELLOW Urine Turbidity CLEAR Urine pH 6.0 Urine Specific [place] 1.026 Urine Protein 300 Urine Glucose (UA) 1000 Urine Ketones 80 Urine Occult Blood MOD Urine Nitrite NEG Urine Bilirubin NEG Urine Urobilinogen LESS THAN 2.0 Urine Leukocyte Esterase NEG Urine RBC 2 Urine WBC 1 Urine Squamous Epithelial Cells <1 Urine Bacteria OCC Urine Hyaline Casts 3 Urine Mucus FEW Microscopic Urinalysis Comment CATH-CULTURE IND Lactic Acid Level 2.3 1.4 Date/Time Source Procedure Growth Status 02/11/17 08:20 Blood Peripheral Aerobic Blood Culture Pending Received 02/11/17 08:20 Blood Peripheral Anaerobic Blood Culture Pending Received 02/11/17 08:28 Urine Catheterized Urine Urine Culture Pending Received Physical Exam Physical Exam Pt is seen & Examined d/w PT & his daughter at bedside d/w Tangela see Orders see H&P will f/u Farrukh Garcia MD Feb 11, 2017 17:57
--- NOTE | 2017-02-11 18:57 | PD.ID.CON ---
History of Present Illness Service ID Consult Requested By Dr Garcia Reason for Consult febrile illness Primary Care Physician Martir Pringle, Diagnoses: History of Present Illness Chart was reviewede: Per admitting note: Mr. Torres is a 71-year-old white male with significant past medical history of hypertension, hyperlipidemia, coronary artery disease and primary cardial infarction with stent, type 2 diabetes. Patient has had a history of essential tremors that was initially treated with medications per Dr. Zacarias. Because of worsening symptoms, he was referred to the [facility]. Patient underwent placement of a deep brain nerve stimulator On Jan He developped high grade fever and confusion today along with headache This morning his temperature was up to 101.5. There is no reported coughing, no sputum, no vomiting, no diarrhea. No nausea or vomiting CBC remarkable for leukocytosis, WBC of 14.2,. Lactic acid was 2.3. CT of the head show intracranial air and left scalp edema, consistent with deep brain stimulator placement days ago. The distal tip of the brain stimulator is in the region of the left basal ganglia and thalamus. No acute findings identified. Chest x-ray w/o acute cardiopulmonary abnormality. Patient was given robel and Gely Patient's neurosurgeon at the [facility], Dr. Dunaway was contacted. As per his statement, patient could have infection from the surgical implantation. CT scan shows postop changes. He is currently afebrile and his mental status improved Review of Systems ROS Limitations: Altered Mental Status Past Family Social History Allergies: Coded Allergies: diatrizoate meglumine (Unverified Allergy, Unknown, 02/02/17) gadobenic acid (Unverified Allergy, Unknown, 02/02/17) gadodiamide (Unverified Allergy, Unknown, 02/02/17) gadoteridol (Unverified Allergy, Unknown, 02/02/17) iodixanol (Unverified Allergy, Unknown, 02/02/17) iohexol (Unverified Allergy, Unknown, 02/02/17) Past Medical History CAD, CA Cardiomyopathy Hyperlipidemia DM-has insulin pump Headache HTN Kidney stones Essential tremors. Past Surgical History Cholecystectomy Appendectomy Cardiac catheterization Kidney stone removal Vasectomy status post deep brain nerve stimulator implanted at [facility]. Active Ordered Medications Medications where reviewed in EMR Antibiotics Include: gely huston Family History reviewed in chart; non contributorty Social History No tobacco, etoh, or illicit drug use. Physical Exam Vital Signs Vital Signs Date Time Temp Pulse Resp B/P (MAP) Pulse Ox O2 Delivery O2 Flow Rate FiO2 02/11/17 11:00 97 16 163/91 (115) 96 02/11/17 10:00 96 18 161/86 (111) 97 02/11/17 09:43 98 18 161/86 (111) 97 Nasal Cannula 2.00 02/11/17 08:26 Room Air 02/11/17 08:26 Room Air 02/11/17 08:13 98 18 98 Room Air 02/11/17 07:56 98.4 100 18 187/100 (129) 98 Physical Exam CONSTITUTIONAL/GENERAL: This is an adequately nourished patient, in no apparent distress. TUBES/LINES/DRAINS: SKIN: No jaundice, rashes, or lesions. . Skin temperature appropriate. Not diaphoretic. HEAD: Normocephalic. L parietal area with healing incision , no fluctuance, no drainage or redness EYES: Pupils equal and round and reactive. Extraocular motions intact. No scleral icterus. No injection or drainage. Fundi not examined. ENT: Hearing grossly normal. Oral mucosae without visible erythema, exudates, masses, or lesions. NECK: Trachea midline. Supple, nontender. CARDIOVASCULAR: Regular rate and rhythm without murmurs, gallops, or rubs. No JVD. Peripheral pulses symmetric. Pacer in place L chest w/o obvious fluctuance Incision appear clean RESPIRATORY/CHEST: Symmetric, unlabored respirations. Clear to auscultation. Breath sounds equal bilaterally. No wheezes, rales, or rhonchi. GASTROINTESTINAL: Abdomen soft, non-tender, nondistended. No hepato-splenomegaly , or palpable masses. No guarding. Bowel sounds present. GENITOURINARY: Without palpable bladder distension. MUSCULOSKELETAL: Extremities without clubbing, cyanosis, or edema. No mottling or clubbing. LYMPHATICS: No palpable cervical or supraclavicular adenopathy. NEUROLOGICAL: Awake and alert. Oriented x 3 Motor and sensory grossly within normal limits. Follows commands. Clear speech. Moves all extremities. PSYCHIATRIC: No obvious anxiety/depression. no apparent hallucinations or other psychotic thought process. Laboratory Laboratory Tests Test 02/11/17 08:20 02/11/17 08:28 02/11/17 11:30 White Blood Count 14.2 Red Blood Count 4.02 Hemoglobin 12.9 Hematocrit 40.3 Mean Corpuscular Volume 100.4 Mean Corpuscular Hemoglobin 32.2 Mean Corpuscular Hemoglobin Concent 32.1 Red Cell Distribution Width 13.6 Platelet Count 196 Mean Platelet Volume 7.5 Neutrophils (%) (Auto) 88.0 Lymphocytes (%) (Auto) 5.8 Monocytes (%) (Auto) 6.1 Eosinophils (%) (Auto) 0.0 Basophils (%) (Auto) 0.1 Neutrophils # (Auto) 12.5 Lymphocytes # (Auto) 0.8 Monocytes # (Auto) 0.9 Eosinophils # (Auto) 0.0 Basophils # (Auto) 0.0 CBC Comment DIFF FINAL Differential Comment Prothrombin Time 11.5 Prothromb Time International Ratio 1.0 Blood Urea Nitrogen 27 Creatinine 1.58 Random Glucose 311 Total Protein 7.1 Albumin 3.5 Calcium Level 8.9 Alkaline Phosphatase 84 Aspartate Amino Transf (AST/SGOT) 38 Alanine Aminotransferase (ALT/SGPT) 30 Total Bilirubin 1.3 Sodium Level 134 Potassium Level 4.2 Chloride Level 99 Carbon Dioxide Level 22.2 Anion Gap 13 Estimat Glomerular Filtration Rate 44 Urine Color YELLOW Urine Turbidity CLEAR Urine pH 6.0 Urine Specific [place] 1.026 Urine Protein 300 Urine Glucose (UA) 1000 Urine Ketones 80 Urine Occult Blood MOD Urine Nitrite NEG Urine Bilirubin NEG Urine Urobilinogen LESS THAN 2.0 Urine Leukocyte Esterase NEG Urine RBC 2 Urine WBC 1 Urine Squamous Epithelial Cells <1 Urine Bacteria OCC Urine Hyaline Casts 3 Urine Mucus FEW Microscopic Urinalysis Comment CATH-CULTURE IND Lactic Acid Level 2.3 1.4 Date/Time Source Procedure Growth Status 02/11/17 08:20 Blood Peripheral Aerobic Blood Culture Pending Received 02/11/17 08:20 Blood Peripheral Anaerobic Blood Culture Pending Received 02/11/17 08:28 Urine Catheterized Urine Urine Culture Pending Received Result Diagram: 02/11/1781902/11/17819 Imaging Last Impressions Head CT 02/11/1715 Signed Impressions: Service Date/Time: Saturday, February 11, 2017 08:53 - CONCLUSION: 1. There is intracranial air and left scalp edema, consistent with deep brain stimulator placement 2 days ago. The distal tip of the deep brain stimulator is in the region of the left basal ganglia and thalamus. 2. Otherwise, no acute finding is identified. Martir Cummings MD Chest X-Ray 02/11/17 0815 Signed Impressions: Service Date/Time: Saturday, February 11, 2017 08:26 - CONCLUSION: Underinflation with mild atelectasis at the lung bases. No acute cardiopulmonary abnormality is visualized. Martir Cummings MD Assessment and Plan Assessment and Plan Fever , headache and mental status change following deep brain stimulation electrode placement 10 days prior, suspected infection Rec's: consult neurosurgery start on vancomycin, cefepime, flagyl Discussed Condition With dgtr @ b/s Vandana Soto MD Feb 11, 2017 18:57
[2017-02-11] MEDS: metroNIDAZOLE 500 MG INJ 100 ML IV SCH (20:54)
[2017-02-11] MEDS: GABAPENTIN 400 MG CAP PO SCH (20:56)
[2017-02-11] MEDS: metFORMIN HCL 500 MG TAB PO SCH (20:56)
[2017-02-11] MEDS: ATORVASTATIN 40 MG TAB PO SCH (20:56)
[2017-02-11] MEDS: CARVEDILOL 6.25 MG TAB PO SCH (20:57)
[2017-02-11] MEDS: TOPIRAMATE 100 MG TAB PO SCH (20:57)
[2017-02-11] MEDS: PRIMIDONE 50 MG TAB PO SCH (20:57)
[2017-02-11] MEDS: PROPRANOLOL HCL 20 MG TAB PO SCH (20:57)
[2017-02-11] MEDS: ACETAMINOPHEN/HYDROcodone 325 MG/10 MG TAB PO PRN (20:57)
[2017-02-11] MEDS ORDERED: NON-FORMULARY DRUG (Sitagliptin-Metformin (Janumet) 1 TAB) PO SCH (21:00)
[2017-02-11] MEDS: ISOSORBIDE MONONITRATE 30 MG TAB PO SCH (21:32)
[2017-02-11] MEDS: buPROPion HCL 100 MG TAB PO SCH (21:33)
[2017-02-11] MEDS: CEFEPIME INJ 2,000 MG in SODIUM CHLORIDE 0.9% INJ 100 ML IV SCH (21:34)
[2017-02-12] VITALS (10 sets, daily range): BP systolic 115–158; BP diastolic 60–91; PULSE 86–95; RESP 18–20; TEMP 97–102.3; O2SAT 96–99
[2017-02-12] MEDS: metroNIDAZOLE 500 MG INJ 100 ML IV SCH ×3 (03:00→21:08)
[2017-02-12] MEDS: PIPERACIL-TAZO 3.375 GM PREMIX 50 ML IV SCH ×4 (04:12→22:04)
[2017-02-12] MEDS: CEFEPIME INJ 2,000 MG in SODIUM CHLORIDE 0.9% INJ 100 ML IV SCH ×3 (05:02→21:09)
[2017-02-12] MEDS: INSULIN ASPART SUPPLEMENTAL SCALE SQ SCH ×4 (06:30→22:03)
[2017-02-12 06:53] LABS: HEMATOCRIT 32.6 % (39.0-51.0); MEAN CELL VOLUME 101.2 FL (80.0-100.0); MEAN CORPUSCULAR HEMOGLOBIN 33.4 PG (27.0-34.0); PLATELET COUNT 177 TH/MM3 (150-450); RED BLOOD COUNT 3.22 MIL/MM3 (4.50-5.90); RED CELL DISTRIBUTION WIDTH 13.9 % (11.6-17.2); REVIEW FLAG FINAL; WHITE BLOOD COUNT 13.4 TH/MM3 (4.0-11.0)
[2017-02-12 07:24] LABS: BICARBONATE 24.5 MEQ/L (21.0-32.0); POTASSIUM 4.2 MEQ/L (3.5-5.1)
[2017-02-12] MEDS ORDERED: CLOPIDOGREL 75 MG TAB PO SCH (09:00)
[2017-02-12] MEDS ORDERED: POTASSIUM CITRATE 10 MEQ PO SCH (09:00)
[2017-02-12] MEDS: SODIUM CHLOR 0.9% 1000 ML INJ 1,000 ML IV SCH ×3 (09:45→21:06)
[2017-02-12] MEDS: PROPRANOLOL HCL 20 MG TAB PO SCH ×2 (10:18→21:14)
[2017-02-12] MEDS: GABAPENTIN 400 MG CAP PO SCH ×2 (10:18→21:15)
[2017-02-12] MEDS: LISINOPRIL 5 MG TAB PO SCH (10:18)
[2017-02-12] MEDS: PRIMIDONE 50 MG TAB PO SCH ×2 (10:19→21:24)
[2017-02-12] MEDS: CARVEDILOL 6.25 MG TAB PO SCH ×2 (10:19→21:14)
[2017-02-12] MEDS: ISOSORBIDE MONONITRATE 30 MG TAB PO SCH ×2 (10:19→21:25)
[2017-02-12] MEDS: metFORMIN HCL 500 MG TAB PO SCH ×2 (10:20→21:15)
[2017-02-12] MEDS: TOPIRAMATE 100 MG TAB PO SCH ×2 (10:29→21:15)
--- NOTE | 2017-02-12 12:28 | HHI.PR ---
Subjective History of Present Illness Patient remained lethargic Opens eyes answer simple questions then drift back Resting in bed I don't feel good Temperature is down No nausea or vomiting Poor appetite Sister is at bedside Vitals/Results Vital Signs Vital Signs Date Time Temp Pulse Resp B/P (MAP) Pulse Ox O2 Delivery O2 Flow Rate FiO2 02/12/17 12:00 99.2 91 18 115/60 (78) 96 02/12/17 08:00 100.2 92 20 158/91 (113) 98 02/12/17 04:00 100.8 88 18 144/81 (102) 97 02/12/17 00:00 86 02/11/17 21:50 20 02/11/17 20:00 102 02/11/17 16:00 102.7 112 24 94 02/11/17 14:30 100.8 107 22 173/82 (112) 94 CBC/BMP: 02/12/17 0523 02/12/17 0523 Lab Results Laboratory Tests Test 02/12/17 05:23 White Blood Count 13.4 TH/MM3 Red Blood Count 3.22 MIL/MM3 Hemoglobin 10.8 GM/DL Hematocrit 32.6 % Mean Corpuscular Volume 101.2 FL Mean Corpuscular Hemoglobin 33.4 PG Mean Corpuscular Hemoglobin Concent 33.0 % Red Cell Distribution Width 13.9 % Platelet Count 177 TH/MM3 Mean Platelet Volume 8.0 FL Blood Urea Nitrogen 25 MG/DL Creatinine 1.60 MG/DL Random Glucose 285 MG/DL Calcium Level 8.3 MG/DL Sodium Level 138 MEQ/L Potassium Level 4.2 MEQ/L Chloride Level 103 MEQ/L Carbon Dioxide Level 24.5 MEQ/L Anion Gap 11 MEQ/L Estimat Glomerular Filtration Rate 43 ML/MIN Physical Exam General General Appearance: Obese Appearance Remarks Lethargic elderly male Eyes Eye Exam: Pupils Equal, Sclera White Ears & Nose Ears & Nose Exam: Nasal Mucosa [place] Throat Throat Exam: Oral Mucosa [place] & Moist Neck Neck Exam: Neck Supple, Trachea Midline Pulmonary Resp Exam: Clear Bilaterally, Breath Sounds Equal, No Distress Cardiology CV Exam: Regular, Normal Sinus Rhythm Gastrointestinal/Abdomen GI Exam: Soft, Non-Tender, Bowel Sounds Present Integumentary Skin Exam: Warm, Dry Skin Remarks scalp incision appears okay Extremeties Extremities Exam: No Edema, Pedal Pulses Palpable Neurologic Neuro Remarks Lethargic but arousable, neck supple, moves all 4 extremities Psychiatric Psych Exam: Appropriate Responses Assessment/Plan Assessment/Plan Assessment and Plan Problem List: (1) Sepsis (2) Altered mental status (3) recent deep brain stimulator placement (4) Lactic acid acidosis (5) Hypertension (6) Diabetes mellitus (7) Hyperlipidemia (8) Chronic kidney disease (9) CAD (coronary artery disease) Assessment and Plan 71-year-old male with recent placement of a deep brain stimulator. Presented to the emergency room with altered mental status, fever. Sepsis, etiology unclear, recent placement of deep brain stimulator.?? Procedures related infection, rule out meningitis or meningoencephalitis. -Infectious disease input appreciated, neurosurgeon is consulted -Patient will need spinal tap -We will hold Plavix, discussed with patient's sister he was off Plavix because of recent surgery, he took only 1 dose of Plavix on , -We will check platelet function study in anticipation of spinal tap -Continue with antibiotics, cefepime/Flagyl/vancomycin -Follow cultures closely -ID follow-up -Continue IV fluids Altered mental status, likely multifactorial, sepsis -Monitor neuro status Essential tremors, recent placement of deep brain stimulator -Continue to monitor neuro status -Physical therapy for evaluation in the morning -Continue Mysoline -Continue Topamax Type 2 diabetes, has insulin pump -Patient was put on Accu-Cheks before meals and at bedtime with insulin protocol -Pump has been removed Coronary artery disease History myocardial infarction and stents. -Home medications reviewed and initiated Hypertension -Home medications reviewed and initiated Chronic kidney disease -Continue with IV fluids -Monitor renal function Home medications r SCDs for DVT prophylaxis Discussed the patient's sister at bedside in detail A.m. labs Will follow Farrukh Garcia MD Feb 12, 2017 12:28
[2017-02-12] MEDS: ACETAMINOPHEN 325 MG TAB PO PRN (15:55)
--- NOTE | 2017-02-12 16:59 | HHI.IDPN ---
Subjective Subjective Remarks not doing any better Fever at 102.3 Very confused, lethargic Sister at bedside concerned about his mental status Blood clx netgatrive Antibiotics vanco cefepime flagyl Allergies: Coded Allergies: diatrizoate meglumine (Unverified Allergy, Unknown, 02/02/17) gadobenic acid (Unverified Allergy, Unknown, 02/02/17) gadodiamide (Unverified Allergy, Unknown, 02/02/17) gadoteridol (Unverified Allergy, Unknown, 02/02/17) iodixanol (Unverified Allergy, Unknown, 02/02/17) iohexol (Unverified Allergy, Unknown, 02/02/17) Objective . Vital Signs Date Time Temp Pulse Resp B/P (MAP) Pulse Ox O2 Delivery O2 Flow Rate FiO2 02/12/17 16:00 102.3 95 20 150/84 (106) 99 02/12/17 13:37 97.0 02/12/17 12:00 99.2 91 18 115/60 (78) 96 02/12/17 08:00 100.2 92 20 158/91 (113) 98 02/12/17 04:00 100.8 88 18 144/81 (102) 97 02/12/17 00:00 86 02/11/17 21:50 20 02/11/17 20:00 102 . Laboratory Tests Test 02/11/17 08:20 02/12/17 05:23 White Blood Count 14.2 TH/MM3 13.4 TH/MM3 Red Blood Count 4.02 MIL/MM3 3.22 MIL/MM3 Hemoglobin 12.9 GM/DL 10.8 GM/DL Hematocrit 40.3 % 32.6 % Mean Corpuscular Volume 100.4 FL 101.2 FL Mean Corpuscular Hemoglobin 32.2 PG 33.4 PG Mean Corpuscular Hemoglobin Concent 32.1 % 33.0 % Red Cell Distribution Width 13.6 % 13.9 % Platelet Count 196 TH/MM3 177 TH/MM3 Mean Platelet Volume 7.5 FL 8.0 FL Neutrophils (%) (Auto) 88.0 % Lymphocytes (%) (Auto) 5.8 % Monocytes (%) (Auto) 6.1 % Eosinophils (%) (Auto) 0.0 % Basophils (%) (Auto) 0.1 % Neutrophils # (Auto) 12.5 TH/MM3 Lymphocytes # (Auto) 0.8 TH/MM3 Monocytes # (Auto) 0.9 TH/MM3 Eosinophils # (Auto) 0.0 TH/MM3 Basophils # (Auto) 0.0 TH/MM3 CBC Comment DIFF FINAL Differential Comment Laboratory Tests Test 02/11/17 08:20 02/11/17 08:28 02/11/17 11:30 02/12/17 05:23 Blood Urea Nitrogen 27 MG/DL 25 MG/DL Creatinine 1.58 MG/DL 1.60 MG/DL Random Glucose 311 MG/DL 285 MG/DL Total Protein 7.1 GM/DL Albumin 3.5 GM/DL Calcium Level 8.9 MG/DL 8.3 MG/DL Alkaline Phosphatase 84 U/L Aspartate Amino Transf (AST/SGOT) 38 U/L Alanine Aminotransferase (ALT/SGPT) 30 U/L Total Bilirubin 1.3 MG/DL Sodium Level 134 MEQ/L 138 MEQ/L Potassium Level 4.2 MEQ/L 4.2 MEQ/L Chloride Level 99 MEQ/L 103 MEQ/L Carbon Dioxide Level 22.2 MEQ/L 24.5 MEQ/L Anion Gap 13 MEQ/L 11 MEQ/L Estimat Glomerular Filtration Rate 44 ML/MIN 43 ML/MIN Lactic Acid Level 2.3 mmol/L 1.4 mmol/L Microbiology Date/Time Source Procedure Growth Status 02/11/17 08:20 Blood Peripheral Aerobic Blood Culture - Preliminary NO GROWTH IN 1 DAY Resulted 02/11/17 08:20 Blood Peripheral Anaerobic Blood Culture - Preliminary NO GROWTH IN 1 DAY Resulted 02/11/17 08:20 Blood Peripheral Aerobic Blood Culture - Preliminary NO GROWTH IN 1 DAY Resulted 02/11/17 08:20 Blood Peripheral Anaerobic Blood Culture - Preliminary NO GROWTH IN 1 DAY Resulted 02/11/17 08:28 Urine Catheterized Urine Urine Culture - Preliminary NO GROWTH IN 24 HOURS. Resulted Imaging Last Impressions Head CT 02/11/17814 Signed Impressions: Service Date/Time: Saturday, February 11, 2017 08:53 - CONCLUSION: 1. There is intracranial air and left scalp edema, consistent with deep brain stimulator placement 2 days ago. The distal tip of the deep brain stimulator is in the region of the left basal ganglia and thalamus. 2. Otherwise, no acute finding is identified. Martir Cummings MD Chest X-Ray 02/11/17814 Signed Impressions: Service Date/Time: Saturday, February 11, 2017 08:26 - CONCLUSION: Underinflation with mild atelectasis at the lung bases. No acute cardiopulmonary abnormality is visualized. Martir Cummings MD Physical Exam CONSTITUTIONAL/GENERAL: This is an adequately nourished patient, in no apparent distress. TUBES/LINES/DRAINS: SKIN: No jaundice, rashes, or lesions. . Skin temperature appropriate. Not diaphoretic. HEAD: Normocephalic. L parietal area with healing incision , no fluctuance, no drainage or redness EYES: Pupils equal and round and reactive. Extraocular motions intact. No scleral icterus. No injection or drainage. Fundi not examined. ENT: Hearing grossly normal. Oral mucosae without visible erythema, exudates, masses, or lesions. NECK: Trachea midline. Supple, nontender. CARDIOVASCULAR: Regular rate and rhythm without murmurs, gallops, or rubs. No JVD. Peripheral pulses symmetric. Pacer in place L chest w/o obvious fluctuance Incision appear clean RESPIRATORY/CHEST: Symmetric, unlabored respirations. Clear to auscultation. Breath sounds equal bilaterally. No wheezes, rales, or rhonchi. GASTROINTESTINAL: Abdomen soft, non-tender, nondistended. No hepato-splenomegaly , or palpable masses. No guarding. Bowel sounds present. MUSCULOSKELETAL: Extremities without clubbing, cyanosis, or edema. No mottling or clubbing. NEUROLOGICAL: Very lethargic, arousable. Confused. Speech is incoherent Motor and sensory grossly within normal limits. Follows commands. PSYCHIATRIC: No obvious anxiety/depression. no apparent hallucinations or other psychotic thought process. Assessment & Plan Remarks Fever , headache and mental status change following deep brain stimation electrode placement 10 days prior, strongly suspect infection related to neurosurgical procedure dw Dr Sullivan - kaitlin erecommended transfer to [place] since he is not certified in those kind of procedures Rec's: LP. Pt has Plavix x1 onThur after a whole week off - LP was soon as feasible as far as anticoagulation cont vancomycin, cefepime, flagyl Discussed Condition With sister @ b/s Laurie Shelton,Vandana Hardy MD Feb 12, 2017 16:59
[2017-02-12] MEDS: VANCOMYCIN INJ 2,000 MG in SODIUM CHLORID 0.9% 500 ML INJ 500 ML IV SCH (18:12)
[2017-02-12] MEDS: buPROPion HCL 100 MG TAB PO SCH (21:15)
[2017-02-12] MEDS: ATORVASTATIN 40 MG TAB PO SCH (21:16)
[2017-02-13] VITALS (8 sets, daily range): BP systolic 130–165; BP diastolic 70–93; PULSE 80–97; RESP 18–20; TEMP 97.8–102.8; O2SAT 96–100
[2017-02-13] MEDS: PIPERACIL-TAZO 3.375 GM PREMIX 50 ML IV SCH ×3 (05:06→18:18)
[2017-02-13] MEDS: SODIUM CHLOR 0.9% 1000 ML INJ 1,000 ML IV SCH ×2 (05:07→15:45)
[2017-02-13] MEDS: metroNIDAZOLE 500 MG INJ 100 ML IV SCH ×3 (05:12→21:30)
[2017-02-13] MEDS: INSULIN ASPART SUPPLEMENTAL SCALE SQ SCH ×4 (05:21→23:37)
[2017-02-13] MEDS: CEFEPIME INJ 2,000 MG in SODIUM CHLORIDE 0.9% INJ 100 ML IV SCH ×4 (06:20→23:32)
[2017-02-13] MEDS: PROPRANOLOL HCL 20 MG TAB PO SCH ×2 (10:16→20:36)
[2017-02-13] MEDS: TOPIRAMATE 100 MG TAB PO SCH ×2 (10:17→20:36)
[2017-02-13] MEDS: LISINOPRIL 5 MG TAB PO SCH (10:18)
[2017-02-13] MEDS: GABAPENTIN 400 MG CAP PO SCH ×2 (10:18→20:35)
[2017-02-13] MEDS: ISOSORBIDE MONONITRATE 30 MG TAB PO SCH ×2 (10:20→20:36)
[2017-02-13] MEDS: metFORMIN HCL 500 MG TAB PO SCH ×2 (10:21→20:35)
[2017-02-13] MEDS: CARVEDILOL 6.25 MG TAB PO SCH ×2 (10:21→20:35)
[2017-02-13] MEDS: PRIMIDONE 50 MG TAB PO SCH ×2 (10:22→20:39)
[2017-02-13] MEDS: ACETAMINOPHEN 325 MG TAB PO PRN ×2 (12:53→23:32)
--- NOTE | 2017-02-13 15:53 | HHI.PR ---
Subjective History of Present Illness Patient remained lethargic Opens eyes answer simple questions then drift back By mouth intake remained poor No nausea vomiting Loose BM 3-4 today No cough or sputum production Denies chest pain Temperature is down Offers no other complaints Sister is at bedside Vitals/Results Vital Signs Vital Signs Date Time Temp Pulse Resp B/P (MAP) Pulse Ox O2 Delivery O2 Flow Rate FiO2 02/13/17 12:00 97.8 91 20 165/82 (109) 100 02/13/17 08:00 98.5 87 20 146/86 (106) 98 02/13/17 08:00 80 02/13/17 04:00 98.7 84 20 130/70 (90) 97 02/13/17 00:00 98.4 86 20 132/74 (93) 99 02/12/17 20:14 88 02/12/17 20:00 98.8 91 20 125/60 (81) 99 02/12/17 17:52 101.3 02/12/17 16:00 102.3 95 20 150/84 (106) 99 CBC/BMP: 02/12/17 0523 02/12/17 0523 Lab Results Laboratory Tests Test 02/12/17 17:56 Platelet Function Scrn (Epinephrine 133 SECONDS Physical Exam General General Appearance: No Acute Distress, Comfortable, Obese Appearance Remarks Lethargic elderly male Eyes Eye Exam: Pupils Equal, Sclera White Ears & Nose Ears & Nose Exam: Nasal Mucosa [place] Throat Throat Exam: Oral Mucosa [place] & Moist Neck Neck Exam: Neck Supple, Trachea Midline Pulmonary Resp Exam: Clear Bilaterally, Breath Sounds Equal, No Distress Cardiology CV Exam: Regular, Normal Sinus Rhythm Gastrointestinal/Abdomen GI Exam: Soft, Non-Tender, Bowel Sounds Present Integumentary Skin Exam: Warm, Dry Skin Remarks scalp incision appears okay Extremeties Extremities Exam: No Edema, Pedal Pulses Palpable Neurologic Neuro Remarks Lethargic but arousable, neck supple, moves all 4 extremities Psychiatric Psych Exam: Appropriate Responses Assessment/Plan Assessment/Plan Assessment and Plan Problem List: (1) Sepsis (2) Altered mental status (3) recent deep brain stimulator placement (4) Lactic acid acidosis (5) Hypertension (6) Diabetes mellitus (7) Hyperlipidemia (8) Chronic kidney disease (9) CAD (coronary artery disease) Assessment and Plan 71-year-old male with recent placement of a deep brain stimulator. Presented to the emergency room with altered mental status, fever. Sepsis, etiology unclear, recent placement of deep brain stimulator.?? Procedures related infection, rule out meningitis or meningoencephalitis. -Infectious disease input appreciated, neurosurgeon is consulted -IR consulted for spinal tap - patient received 1 dose of Plavix on , -platelet function study noted/okay to proceed with spinal tap. -Neurosurgery refused to see the patient and recommends transfer back to [facility] -Continue with antibiotics, cefepime/Flagyl/vancomycin -Follow cultures closely -ID follow-up -Continue IV fluids -Check stool for C. difficile Altered mental status, likely multifactorial, sepsis -Monitor neuro status Essential tremors, recent placement of deep brain stimulator -Continue to monitor neuro status -Physical therapy for evaluation in the morning -Continue Mysoline -Continue Topamax Type 2 diabetes, has insulin pump -Patient was put on Accu-Cheks before meals and at bedtime with insulin protocol -Pump has been removed Coronary artery disease History myocardial infarction and stents. -Home medications reviewed and initiated Hypertension -Home medications reviewed and initiated Chronic kidney disease -Continue with IV fluids -Monitor renal function Home medications r SCDs for DVT prophylaxis Discussed the patient's sister again today in detail, life support issues were d /w she is requesting DNR but full active treatment. Consult rn case manager to arrange transfer to [facility] in a.m. A.m. labs Will follow Farrukh Garcia MD Feb 13, 2017 15:53
[2017-02-13] MEDS: VANCOMYCIN INJ 2,000 MG in SODIUM CHLORID 0.9% 500 ML INJ 500 ML IV SCH (19:39)
[2017-02-13] MEDS: buPROPion HCL 100 MG TAB PO SCH (20:35)
[2017-02-13] MEDS: ATORVASTATIN 40 MG TAB PO SCH (20:35)
[2017-02-13] MEDS: ACETAMINOPHEN/HYDROcodone 325 MG/10 MG TAB PO PRN (20:42)
[2017-02-14] VITALS (13 sets, daily range): BP systolic 162–210; BP diastolic 82–123; PULSE 93–113; RESP 18–41; TEMP 98–102.3; O2SAT 97–100
[2017-02-14] MEDS: SODIUM CHLOR 0.9% 1000 ML INJ 1,000 ML IV SCH ×2 (01:45→04:49)
[2017-02-14] MEDS: metroNIDAZOLE 500 MG INJ 100 ML IV SCH ×2 (04:49→20:32)
[2017-02-14] MEDS: INSULIN ASPART SUPPLEMENTAL SCALE SQ SCH (05:50)
[2017-02-14 06:13] LABS: MEAN CELL VOLUME 101.7 FL (80.0-100.0); MEAN CORPUSCULAR HEMOGLOBIN 32.2 PG (27.0-34.0); MEAN CORPUSCULAR HGB CONC 31.7 % (32.0-36.0); PLATELET COUNT 215 TH/MM3 (150-450); RED BLOOD COUNT 3.15 MIL/MM3 (4.50-5.90); RED CELL DISTRIBUTION WIDTH 13.9 % (11.6-17.2); REVIEW FLAG FINAL; WHITE BLOOD COUNT 10.2 TH/MM3 (4.0-11.0)
[2017-02-14 07:11] LABS: BICARBONATE 23.3 MEQ/L (21.0-32.0); POTASSIUM 3.8 MEQ/L (3.5-5.1)
[2017-02-14] MEDS: PRIMIDONE 50 MG TAB PO SCH ×2 (09:35→21:00)
[2017-02-14] MEDS: LISINOPRIL 5 MG TAB PO SCH (09:35)
[2017-02-14] MEDS: GABAPENTIN 400 MG CAP PO SCH ×2 (09:35→21:00)
[2017-02-14] MEDS: TOPIRAMATE 100 MG TAB PO SCH ×2 (09:35→21:00)
[2017-02-14] MEDS: CARVEDILOL 6.25 MG TAB PO SCH ×2 (09:36→21:00)
[2017-02-14] MEDS: ISOSORBIDE MONONITRATE 30 MG TAB PO SCH ×2 (09:36→21:00)
[2017-02-14] MEDS: metFORMIN HCL 500 MG TAB PO SCH (09:36)
[2017-02-14] MEDS: PROPRANOLOL HCL 20 MG TAB PO SCH ×2 (09:36→21:00)
[2017-02-14] MEDS: CEFEPIME INJ 2,000 MG in SODIUM CHLORIDE 0.9% INJ 100 ML IV SCH ×2 (10:03→23:44)
--- NOTE | 2017-02-14 10:37 | HHI.PR ---
Subjective Subjective Remarks Resting in bed at approximately 30 Family member gave patient about food which h has delayed swallowing, safety for possible aspiration Altered mental status continues with some lethargy Febrile in the past 24 hours (Sri Lee) Review of Systems Constitutional Constitutional: Fever, Fatigue, Weakness Constitutional Remarks 10 point ROS done positives noted (Sri Lee) Musculoskeletal MS: Weakness (Sri Lee) Neurologic Neurologic: Lethargic (Sri Lee) Vitals/Results Vital Signs Vital Signs Date Time Temp Pulse Resp B/P (MAP) Pulse Ox O2 Delivery O2 Flow Rate FiO2 02/14/17 07:00 Nasal Cannula 2.00 02/14/17 06:55 100.8 02/14/17 04:00 102.3 100 18 163/91 (115) 99 02/14/17 00:48 99.8 02/13/17 23:30 Nasal Cannula 2.00 02/13/17 23:30 102.8 97 18 162/93 (116) 99 02/13/17 20:05 89 02/13/17 20:00 Nasal Cannula 2.00 02/13/17 20:00 99.9 84 18 143/73 (96) 99 02/13/17 16:00 97.8 95 20 154/71 (98) 96 02/13/17 13:53 18 02/13/17 12:00 97.8 91 20 165/82 (109) 100 (Sri Lee) CBC/BMP: 02/14/17 0517 02/14/17 0517 Lab Results Laboratory Tests Test 02/14/17 05:17 White Blood Count 10.2 TH/MM3 Red Blood Count 3.15 MIL/MM3 Hemoglobin 10.1 GM/DL Hematocrit 32.0 % Mean Corpuscular Volume 101.7 FL Mean Corpuscular Hemoglobin 32.2 PG Mean Corpuscular Hemoglobin Concent 31.7 % Red Cell Distribution Width 13.9 % Platelet Count 215 TH/MM3 Mean Platelet Volume 7.8 FL Blood Urea Nitrogen 23 MG/DL Creatinine 1.64 MG/DL Random Glucose 278 MG/DL Calcium Level 8.2 MG/DL Sodium Level 138 MEQ/L Potassium Level 3.8 MEQ/L Chloride Level 105 MEQ/L Carbon Dioxide Level 23.3 MEQ/L Anion Gap 10 MEQ/L Estimat Glomerular Filtration Rate 42 ML/MIN Imaging Remarks Last Impressions Head CT 02/11/17814 Signed Impressions: Service Date/Time: Saturday, February 11, 2017 08:53 - CONCLUSION: 1. There is intracranial air and left scalp edema, consistent with deep brain stimulator placement 2 days ago. The distal tip of the deep brain stimulator is in the region of the left basal ganglia and thalamus. 2. Otherwise, no acute finding is identified. Martir Cummings MD Chest X-Ray 02/11/17814 Signed Impressions: Service Date/Time: Saturday, February 11, 2017 08:26 - CONCLUSION: Underinflation with mild atelectasis at the lung bases. No acute cardiopulmonary abnormality is visualized. Martir Cummings MD ([place],Sri M. BRICK UNLOADER TENDER) Physical Exam General General Appearance: No Acute Distress, Comfortable, Pale, Obese (Van VleckSri M. BRICK UNLOADER TENDER) Eyes Eye Exam: Pupils Equal, Sclera White (Rosa,Sri M. BRICK UNLOADER TENDER) Ears & Nose Ears & Nose Exam: Nasal [place]uc[place] (Rosa,Sri M. BRICK UNLOADER TENDER) Throat Throat Exam: Oral [place]uc[place] & Moist ([place],Sri M. BRICK UNLOADER TENDER) Neck Neck Exam: Neck Supple, Trachea Midline (Van VleckSri M. BRICK UNLOADER TENDER) Pulmonary Resp Exam: Clear Bilaterally, Breath Sounds Equal, No Distress (Rosa,Sri M. BRICK UNLOADER TENDER) Cardiology CV Exam: Regular, Normal Sinus Rhythm (RosaSri M. BRICK UNLOADER TENDER) Gastrointestinal/Abdomen GI Exam: Soft, Non-Tender, Bowel Sounds Present (Van VleckSri M. BRICK UNLOADER TENDER) Integumentary Skin Exam: Warm, Dry ([place],Sri M. BRICK UNLOADER TENDER) Extremeties Extremities Exam: No Edema, Pedal Pulses Palpable (Van VleckSri M. BRICK UNLOADER TENDER) Neurologic Neuro Remarks Lethargic, (Van VleckSri M. BRICK UNLOADER TENDER) Psychiatric Psych Exam: Appropriate Responses ([place],Sri M. BRICK UNLOADER TENDER) Assessment/Plan Assessment/Plan Assessment and Plan Problem List: (1) Sepsis (2) Altered mental status (3) recent deep brain stimulator placement (4) Lactic acid acidosis (5) Hypertension (6) Diabetes mellitus (7) Hyperlipidemia (8) Chronic kidney disease (9) CAD (coronary artery disease) Assessment and Plan Vital signs reviewed, still has fevers in the past 24 hours, BP 163/91 Labs reviewed Sepsis, etiology unclear, recent placement of deep brain stimulator.?? Procedures related infection, rule out meningitis or meningoencephalitis. -Infectious disease input appreciated, Appreciate neurosurgery input recommends transfer back to the [facility]- Continue antibiotic therapy, monitor blood cultures, no growth so far blood or urine -platelet function study noted/okay to proceed with spinal tap. -Neurosurgery refused to see the patient and recommends transfer back to [facility] -Check stool for C. difficile, Continues to have some diarrhea, Altered mental status, likely multifactorial, sepsis -Monitor neuro status, continues to be lethargic, does have some minimal handgrip to command Type 2 diabetes, has insulin pump -Patient was put on Accu-Cheks before meals and at bedtime with insulin protocol Will monitor without insulin pump now for no potentials of hypoglycemic reactions Coronary artery disease History myocardial infarction and stents Hypertension Medical management, Chronic kidney disease Continue IV hydration Some dysphasia noted, probable secondary to lethargy and altered mental status, spoke to nurse and family, safety for prevention of aspiration, do not exceed patient unless he is hungry alert and asking for food Will trial his meds crushed in applesauce, but if patient cannot tolerate , hold ,, ST to eval SCDs for DVT prophylaxis Case management was can on possible transfer to [facility], physician has accepted, now working on bed availability Possible transfer today or tomorrow (Sri Lee) Assessment/Plan pt is seen & examined d/w PT's sister & other family members at bedside LP not done as pt received 1 dose plavix on 02/12,per hospital/IR dept. policy have to wait for 5 days cont empiric IV abx cont IVF d/w human services case manager /transfer process is initiated /gave my cell phone number for doctor to doctor d/w. d/w sri cont supportive care pt is DNR ADDENDUM PT BECAME TACHYPNEIC/TACHYCARDIC/BP SHOT UP IV vasotec ordered CXR pul congestion /ABG noted 1 does IV lasix given, started to diurese little better now being tx to [facility] [place] [place] for closer observation d/w pt's son & sister again , though pt in past has told them No life support, son is unsure at this time he wants him Full Code notified Chamber Walker , Dr Black will f/u (Farrukh Garcia MD) Sri Lee Feb 14, 2017 10:37 Farrukh aGrcia MD Feb 14, 2017 12:42
[2017-02-14] MEDS ORDERED: SODIUM CHLOR 0.9% 1000 ML INJ 1,000 ML IV SCH (13:00)
[2017-02-14 14:28] LABS: BLOOD GAS BASE EXCESS -7.9 mmol/L (-2-2); BLOOD GAS HCO3 17 mmol/L (22-26); BLOOD GAS METHEMOGLOBIN 0.7 % (0-2); BLOOD GAS O2 HGB SATURATION 93 % (90-100); BLOOD GAS OXYGEN CONTENT 16.5 Vol % (12.0-20.0); BLOOD GAS PCO2 32 mmHg (38-42); BLOOD GAS PO2 77 mmHg (61-120); BLOOD GAS TOTAL HGB 12.5 G/DL (12.0-16.0); CRITICAL VALUE NO; OXYGEN DEVICE NASAL CANNULA; TEMP CORR TO 98.6
[2017-02-14 14:29] LABS: DRAW SITE LT RADIAL; LITER FLOW 2 L/M; NUMBER OF ARTERIAL PUNCTURES 1; STAT YES; ULNAR PULSE PRESENT
[2017-02-14] MEDS ORDERED: FUROSEMIDE 40 MG/4 ML VIAL ONE (14:40)
[2017-02-14] MEDS ORDERED: FUROSEMIDE 40 MG/4 ML VIAL IV PUSH ONE (15:00)
[2017-02-14] MEDS ORDERED: hydrALAZINE HCL 20 MG/ML VIAL IV ONE (15:00)
--- NOTE | 2017-02-14 15:08 | RADRPT ---
EXAM DATE/TIME: 02/14/2017 13:49 [place] COMPARISON: CHEST SINGLE AP, February 11, 2017, 8:26. INDICATIONS : Shortness of breath. MEDICAL HISTORY : Hypertension. Myocardial infarction. Diverticulosis. CHF SURGICAL HISTORY : Coronary artery stent. DBS battery pack. ENCOUNTER: Subsequent ACUITY: 3 days PAIN SCORE: 0/10 LOCATION: Bilateral chest FINDINGS: 2 portable frontal views of the chest are blurred by motion artifact. The heart is mildly enlarged. B ilateral perihilar densities are seen felt to relate to pulmonary vascular engorgement. No discrete i nfiltrate or effusion. Pacing device overlies the left chest. CONCLUSION: Limited exam due to motion. Cardiomegaly with pulmonary vascular engorgement. Fredy Bernal Jr., MD on February 14, 2017 at 14:55 Board Certified Radiologist. This report was verified electronically.
[2017-02-14 15:39] LABS: C. DIFF EPI 027 PRESUMPTIVE NEGATIVE (NEGATIVE)
[2017-02-14] MEDS ORDERED: RESP: ALBUTEROL 2.5 MG/IPRATROPIUM 0.5 MG NEB (PRN) NEB (15:45)
[2017-02-14] MEDS: RESP: ALBUTEROL 2.5 MG/IPRATROPIUM 0.5 MG NEB (SCH) NEB ×3 (16:00→23:17)
[2017-02-14] MEDS ORDERED: GLUCAGON 1 MG/ML VIAL OTHER PRN (16:30)
[2017-02-14] MEDS ORDERED: DEXTROSE 50% IN WATER 50 ML VIAL(D50) IV PRN (16:30)
[2017-02-14] MEDS ORDERED: PHARMACY ORDERED LAB ONE (16:45)
[2017-02-14 16:53] LABS: CKMB 2.5 NG/ML (0.5-3.6)
[2017-02-14] MEDS ORDERED: INSULIN ASPART SUPPLEMENTAL SCALE SQ SCH (17:00)
[2017-02-14] MEDS ORDERED: ASPIRIN 325 MG TAB PO ONE (17:15)
[2017-02-14] MEDS: FUROSEMIDE 40 MG/4 ML VIAL IV PUSH SCH (18:00)
[2017-02-14] MEDS ORDERED: FUROSEMIDE 20 MG/2 ML VIAL IV PUSH SCH (18:00)
--- NOTE | 2017-02-14 18:11 | HHI.IDPN ---
Subjective Subjective Remarks pt is transferred to ICU with mental status change cont to have fever elevted troponin and BNP noted blood clx remain negative Antibiotics vanco cefepime flagyl Allergies: Coded Allergies: diatrizoate meglumine (Unverified Allergy, Unknown, 02/02/17) gadobenic acid (Unverified Allergy, Unknown, 02/02/17) gadodiamide (Unverified Allergy, Unknown, 02/02/17) gadoteridol (Unverified Allergy, Unknown, 02/02/17) iodixanol (Unverified Allergy, Unknown, 02/02/17) iohexol (Unverified Allergy, Unknown, 02/02/17) Objective . Vital Signs Date Time Temp Pulse Resp B/P (MAP) Pulse Ox O2 Delivery O2 Flow Rate FiO2 02/14/17 15:30 111 26 170/100 (123) 97 02/14/17 15:15 109 178/88 (118) 97 02/14/17 13:49 99.6 104 20 210/104 (139) 02/14/17 12:00 99.4 97 20 179/94 (122) 99 02/14/17 08:00 100.5 93 20 162/91 (114) 98 02/14/17 07:00 Nasal Cannula 2.00 02/14/17 06:55 100.8 02/14/17 04:00 102.3 100 18 163/91 (115) 99 02/14/17 00:48 99.8 02/13/17 23:30 Nasal Cannula 2.00 02/13/17 23:30 102.8 97 18 162/93 (116) 99 02/13/17 20:05 89 02/13/17 20:00 Nasal Cannula 2.00 02/13/17 20:00 99.9 84 18 143/73 (96) 99 02/14/17 02/14/17 02/15/17 15:00 23:00 07:00 Intake Total 0 ml Output Total 1800 ml Balance -1800 ml Intake Oral 0 ml Output Urine Total 1800 ml # Voids 4 # Bowel Movements 7 . Laboratory Tests Test 02/14/17 05:17 White Blood Count 10.2 TH/MM3 Red Blood Count 3.15 MIL/MM3 Hemoglobin 10.1 GM/DL Hematocrit 32.0 % Mean Corpuscular Volume 101.7 FL Mean Corpuscular Hemoglobin 32.2 PG Mean Corpuscular Hemoglobin Concent 31.7 % Red Cell Distribution Width 13.9 % Platelet Count 215 TH/MM3 Mean Platelet Volume 7.8 FL Laboratory Tests Test 02/14/17 05:17 02/14/17 15:19 Blood Urea Nitrogen 23 MG/DL Creatinine 1.64 MG/DL Random Glucose 278 MG/DL Calcium Level 8.2 MG/DL Sodium Level 138 MEQ/L Potassium Level 3.8 MEQ/L Chloride Level 105 MEQ/L Carbon Dioxide Level 23.3 MEQ/L Anion Gap 10 MEQ/L Estimat Glomerular Filtration Rate 42 ML/MIN Total Creatine Kinase 354 U/L Creatine Kinase MB 2.5 NG/ML Creatine Kinase MB % 0.7 % Troponin I 1.44 NG/ML B-Type Natriuretic Peptide 1842 PG/ML Microbiology Date/Time Source Procedure Growth Status 02/14/17 17:05 Blood Peripheral Aerobic Blood Culture Pending Received 02/14/17 17:05 Blood Peripheral Anaerobic Blood Culture Pending Received 02/14/17 17:00 Blood Peripheral Aerobic Blood Culture Pending Received 02/14/17 17:00 Blood Peripheral Anaerobic Blood Culture Pending Received Imaging Last Impressions Chest X-Ray 02/14/17 0000 Signed Impressions: Service Date/Time: Tuesday, February 14, 2017 13:49 - CONCLUSION: Limited exam due to motion. Cardiomegaly with pulmonary vascular engorgement. Fredy Bernal Jr., MD Head CT 02/11/17 0815 Signed Impressions: Service Date/Time: Saturday, February 11, 2017 08:53 - CONCLUSION: 1. There is intracranial air and left scalp edema, consistent with deep brain stimulator placement 2 days ago. The distal tip of the deep brain stimulator is in the region of the left basal ganglia and thalamus. 2. Otherwise, no acute finding is identified. Martir Cummings MD Physical Exam CONSTITUTIONAL/GENERAL: This is an adequately nourished patient, in no apparent distress. TUBES/LINES/DRAINS: SKIN: No jaundice, rashes, or lesions. . Skin temperature appropriate. Not diaphoretic. HEAD: Normocephalic. L parietal area with healing incision , no fluctuance, no drainage or redness EYES: Pupils equal and round and reactive. Extraocular motions intact. No scleral icterus. No injection or drainage. Fundi not examined. ENT: Hearing grossly normal. Oral mucosae without visible erythema, exudates, masses, or lesions. NECK: Trachea midline. Supple, nontender. CARDIOVASCULAR: Regular rate and rhythm without murmurs, gallops, or rubs. No JVD. Peripheral pulses symmetric. Pacer in place L chest w/o obvious fluctuance Incision appear clean RESPIRATORY/CHEST: Tachypnea, somewhat labored respirations. Clear to auscultation. Breath sounds equal bilaterally. No wheezes, rales, or rhonchi. GASTROINTESTINAL: Abdomen soft, non-tender, nondistended. No hepato-splenomegaly , or palpable masses. No guarding. Bowel sounds present. MUSCULOSKELETAL: Extremities without clubbing, cyanosis, or edema. No mottling or clubbing. NEUROLOGICAL: Very lethargic, obtunded . Confused. Speech is incoherent Motor and sensory grossly within normal limits. Responds minimally and very briefly PSYCHIATRIC: unable to assess Assessment & Plan Remarks Fever , headache and mental status change following deep brain stimation electrode placement 10 days prior, strongly suspect infection related to neurosurgical procedure dw Dr Sullivan - he erecommended transfer to [place] since he is not certified in those kind of procedures If indeed its infection due to the electrodes the foreing body need to be removed for cure - the procedure that can not be done in this facility; transfer is mandatory in this case I dont see any other obvious source of infection at this point He is clinically deteriorating aspeciallyhis mental status Rec's: LP. Pt has Plavix x1 onThur after a whole week off - LP is postponed 2/2 recent anticoagulation; anticipate 5 days off plavix until cleareed for LP cont vancomycin, cefepime, flagyl agree with plan to transfer Discussed Condition With sister @ b/s Vandana Ruiz MD Feb 14, 2017 18:11
[2017-02-14] MEDS: VANCOMYCIN INJ 2,000 MG in SODIUM CHLORID 0.9% 500 ML INJ 500 ML IV SCH (18:15)
[2017-02-14] MEDS: INSULIN NovoLIN REGULAR SUPPLEMENTAL SCALE SQ SCH ×2 (18:28→21:00)
[2017-02-14] MEDS: ENALAPRILAT 1.25 MG/ML VIAL IV PUSH PRN (20:21)
[2017-02-14] MEDS: ENOXAPARIN SODIUM 40 MG/0.4 ML SYRINGE SQ SCH (20:31)
[2017-02-14] MEDS ORDERED: POTASSIUM CHLORIDE 20 MEQ CONTROLLED RELEASE TAB PO SCH (21:00)
[2017-02-14] MEDS: buPROPion HCL 100 MG TAB PO SCH (21:00)
[2017-02-14] MEDS: ATORVASTATIN 40 MG TAB PO SCH (21:00)
--- NOTE | 2017-02-14 21:40 | MB ---
cc: HOMERO CHICAS M.D. DATE OF CONSULTATION 02/14/2017 DATE OF 1945 HISTORY OF THE PRESENT ILLNESS The patient is a 71-year-old male with past medical history of hypertension, hyperlipidemia, coronary artery disease with previous KS and stent placements, diabetes mellitus and essential tremors. He underwent deep brain nerve stimulator on February 02 at the [facility]. He was admitted to [facility] on February 11 with febrile illness, confusion and headaches. CT scan of the brain was obtained which showed intracranial air and left scalp edema consistent with previous deep brain stimulator placement. No other acute findings identified. Chest x-ray on arrival showed mild atelectasis in the lung bases, otherwise no acute cardiopulmonary abnormalities. He has been seen by Dr. Soto from infectious disease and the patient was placed on broad-spectrum antibiotics, Vancomycin, cefepime and Flagyl. Also the patient was seen by Dr. Sullivan from neurosurgery and he recommended to transfer the patient back to [facility] for further evaluation. The patient was scheduled to undergo LP by IR however was placed on hold as the patient received Plavix last . The patient was admitted the [facility] Hospitalist service. Helicat was called this afternoon for respiratory distress. The patient was given Lasix 80 mg IV push and hydralazine 20 mg for a systolic blood pressure of 170s. He had a good response to the diuretics with a urine output of approximately 1550 ml. The patient transferred to ICU for close observation and critical care medicine was consulted for critical care management. When seen the patient is on 3 liters oxygen with sats of 97%. He is tachycardiac with heart rate of 107 and blood pressure 145/75. A chest x-ray from this afternoon showed cardiomegaly with pulmonary vascular engorgement. He also had an ABG on 2 liters oxygen which showed a pH of 7.34, CO2 32, pAO2 77, bicarb 17, sats of 93%. Most of the history was obtained from reviewing the medical records as the patient is a poor historian secondary due to his lethargy and mental status. PAST MEDICAL HISTORY Significant for: 1. Coronary artery disease with previous KS in the past. 2. Cardiomyopathy. 3. Hyperlipidemia. 4. Diabetes mellitus. 5. Hypertension. 6. Essential tremors. 7. History of kidney stones. PAST SURGICAL HISTORY 1. Previous deep brain stent stimulator implanted at [facility] on February 02. 2. Previous cardiac catheterization. 3. Previous cholecystectomy. 4. And appendectomy. 5. Previous vasectomy. 6. And kidney stone removal. ALLERGIES Multiple, reviewed. SOCIAL HISTORY Nonsmoker, nondrinker. FAMILY HISTORY Reviewed and noncontributory. CURRENT MEDICATIONS 1. Wellbutrin. 2. Coreg. 3. Cefepime. 4. Lisinopril. 5. Imdur. 6. Vancomycin. 7. Flagyl. REVIEW OF SYSTEMS As per HPI. PHYSICAL EXAMINATION GENERAL: A 71-year-old male lying in bed in mild respiratory distress. VITAL SIGNS: Temperature max 102.3, pulse of 107, blood pressure 145/75, saturation 97% on 3 liters oxygen. HEENT: Atraumatic, normocephalic. Pupils equal, round and reactive to light and accommodation. Extraocular muscles intact. Conjunctivae pink. Nonicteric sclerae. Oral mucosa within normal. NECK: Supple. No JVD, adenopathy or thyromegaly. Trachea in the midline. CARDIOVASCULAR: Tachycardiac, normal S1-S2. No murmurs, rubs or gallops noted. LUNGS: Pulmonary exam bilateral equal air entry with coarse breath sounds. ABDOMEN: Soft, nontender, no distension. Positive bowel sounds. EXTREMITIES: No clubbing, cyanosis or edema. NEUROLOGIC: No focal sensory deficit. Lethargic. LABORATORY DATA Sodium of 138, potassium 3.8, chloride 105, CO2 23, BUN 23, creatinine 1.6, glucose 278. WBC 10.2, hemoglobin 10.1, hematocrit 32, platelet count of 215. Stool C diff PCR negative today. IMAGING Radiographic studies, a chest x-ray from this afternoon showed cardiomegaly with pulmonary vascular engorgement. CT brain on February 11 showed deep brain stimulator placement in the region of left basal ganglia and thalamus. IMPRESSION 1. Acute hypoxemic respiratory failure. 2. Fluid overload. 3. Altered mental status. 4. Essential tremor. 5. Status post deep brain stimulator placement on February 02 at the [facility]. 6. Acute on chronic kidney disease. 7. Hypertension. 8. Hyperglycemia with underlying history of diabetes mellitus. 9. Coronary artery disease. 10. Febrile illness. RECOMMENDATIONS 1. Monitor neuro status closely and avoid any sedatives. 2. Continue on oxygen and maintain sats above 92%. 3. CT scan of the brain on February 11 negative for acute disease. Patient status post deep brain stimulator placement on February 02 at the [facility]. 4. Continue with oxygen and maintain sats above 92%. 5. Bronchodilators in the form of DuoNeb q. 4+ q. two p.r.n. for shortness of breath. 6. Aspiration precautions. 7. Monitor heart rate and blood pressure closely and maintain MAP greater than 65 mmHg. Continue with antihypertensive meds. She is currently on Coreg 6.25 mg b.i.d., lisinopril 2.5 mg daily, Imdur 90 mg p.o. b.i.d., Inderal 60 mg q. 12. 8. We will check cardiac enzymes, CK-MB, troponin and EKG. In addition will obtain 2-D echo to evaluate LV function and to rule out regional wall motion abnormalities. He was given Lasix 80 mg IV push x1 during Helicat. 9. Continue with Topamax 100 mg p.o. b.i.d. and Wellbutrin 100 mg p.o. q.h.s. 10. Monitor renal function Is and Os and avoid nephrotoxins. DC IV fluids and diurese as needed. 11. The patient had approximately 1550 ml of urine output post Lasix. 12. Keep n.p.o. for now and will consult speech therapy for evaluation. 13. Continue with antibiotics per ID service. He is currently on cefepime, Flagyl and vancomycin. Monitor for signs of infections which include fever and WBC. Will obtain blood cultures times two sets today. His blood culture and urine culture from February 11 showed no growth. Also we will check a sputum culture with gram stain. 14. Monitor CBC. 15. Continue sliding scale insulin with Accu-Cheks for glycemic control. 16. No indication for GI prophylaxis and DVT prophylaxis with SCDs. Will hold off on chemical anticoagulation prophylaxis as the patient is awaiting to undergo LP. 17. Case management is following as the patient awaiting transfer to [facility]. 18. Case discussed with Dr. Garcia from [facility] hospitalist and ICU nursing staff. MD ELAINE Corral/ALISTAIR /4:12 PM /9:02 PM
[2017-02-14] MEDS ORDERED: CHLORHEXIDINE GLUCONATE 2 % 1 PACK (2 CLOTHS)(extra cloths) TOPICAL PRN (23:45)
[2017-02-15] VITALS (41 sets, daily range): BP systolic 114–215; BP diastolic 63–134; PULSE 85–135; RESP 15–38; TEMP 98.3–103.8; O2SAT 93–99
[2017-02-15] MEDS ORDERED: ACETAMINOPHEN 1000 MG/100 ML VIAL IV ONE ×2 (00:30→06:30)
[2017-02-15] MEDS: INSULIN NovoLIN REGULAR SUPPLEMENTAL SCALE SQ SCH ×5 (01:00→21:00)
[2017-02-15] MEDS: RESP: ALBUTEROL 2.5 MG/IPRATROPIUM 0.5 MG NEB (SCH) NEB ×6 (03:05→23:20)
[2017-02-15] MEDS: metroNIDAZOLE 500 MG INJ 100 ML IV SCH ×3 (03:10→19:37)
[2017-02-15] MEDS: CHLORHEXIDINE GLUCONATE 2 % 1 PACK (2 CLOTHS)(taper/protocol) TOPICAL SCH (03:11)
[2017-02-15] MEDS ORDERED: METOPROLOL TARTRATE 5 MG/5 ML VIAL IV PUSH ONE ×3 (04:00→18:45)
[2017-02-15 07:19] LABS: AUTOMATED NEUTROPHIL # 11.4 TH/MM3 (1.8-7.7); BASOPHIL % 0.2 % (0.0-2.0); HEMO FLAGS DIFF FINAL; LYMPH % 7.6 % (9.0-44.0); LYMPHOCYTE # 1.1 TH/MM3 (1.0-4.8); MEAN CELL VOLUME 100.5 FL (80.0-100.0); MEAN CORPUSCULAR HEMOGLOBIN 33.1 PG (27.0-34.0); MONO % 10.8 % (0.0-8.0); NEUT % 81.4 % (16.0-70.0); PLATELET COUNT 212 TH/MM3 (150-450); RED BLOOD COUNT 3.48 MIL/MM3 (4.50-5.90)
[2017-02-15] MEDS ORDERED: AMIODARONE INJ 150 MG in DEXTROSE 5% IN WATER 100ML INJ 100 ML IV ONE ×2 (07:48)
[2017-02-15 08:23] LABS: BICARBONATE 18.6 MEQ/L (21.0-32.0)
[2017-02-15] MEDS: CEFEPIME INJ 2,000 MG in SODIUM CHLORIDE 0.9% INJ 100 ML IV SCH ×2 (08:26→19:36)
[2017-02-15 08:27] LABS: POTASSIUM 2.5 MEQ/L (3.5-5.1)
[2017-02-15] MEDS: FUROSEMIDE 40 MG/4 ML VIAL IV PUSH SCH (08:27)
[2017-02-15] MEDS: ENOXAPARIN SODIUM 40 MG/0.4 ML SYRINGE SQ SCH ×2 (08:28→19:37)
[2017-02-15] MEDS ORDERED: POTASSIUM CHLOR 20 MEQ PREMIX 100 ML ONE (08:59)
[2017-02-15] MEDS: PROPRANOLOL HCL 20 MG TAB PO SCH ×2 (09:00→19:37)
[2017-02-15] MEDS: LISINOPRIL 5 MG TAB PO SCH (09:00)
[2017-02-15] MEDS: ISOSORBIDE MONONITRATE 30 MG TAB PO SCH ×2 (09:00→19:37)
[2017-02-15] MEDS: PRIMIDONE 50 MG TAB PO SCH ×2 (09:00→19:38)
[2017-02-15] MEDS: TOPIRAMATE 100 MG TAB PO SCH ×2 (09:00→19:38)
[2017-02-15] MEDS: CARVEDILOL 6.25 MG TAB PO SCH ×2 (09:00→19:37)
[2017-02-15] MEDS: GABAPENTIN 400 MG CAP PO SCH ×2 (09:00→19:38)
[2017-02-15] MEDS: AMIODARONE INJ 450 MG in DEXTROSE 5% IN WATE(EXCEL) INJ 241 ML IV SCH ×4 (09:06→17:24)
--- NOTE | 2017-02-15 09:14 | EKG ---
Date Performed: 02/14/2017 Time Performed: 16:57:07 PTAGE: 71 years EKG: SINUS TACHYCARDIA MARKED LEFT AXIS DEVIATION NONSPECIFIC ST & T-WAVE ABNORMALITY ABNORMAL E CG PREVIOUS TRACING : 03/13/2015 09.50 Compared to prior tracing no significant change DOCTOR: Rei Ling Interpretating Date/Time 02/15/2017 09:12:31
--- NOTE | 2017-02-15 09:27 | HHI.CCPN ---
Subjective Remarks/Hospital Course The patient is a 71-year-old male with past medical history of hypertension, hyperlipidemia, coronary artery disease with previous CT and stent placements, diabetes mellitus and essential tremors. He underwent deep brain nerve stimulator on February 02 at the [facility]. He was admitted to [facility] on February 11 with febrile illness, confusion and headaches. CT scan of the brain was obtained which showed intracranial air and left scalp edema consistent with previous deep brain stimulator placement. No other acute findings identified. Chest x-ray on arrival showed mild atelectasis in the lung bases, otherwise no acute cardiopulmonary abnormalities. He has been seen by Dr. Soto from infectious disease and the patient was placed on broad- spectrum antibiotics, Vancomycin, cefepime and Flagyl. Also the patient was seen by Dr. Sullivan from neurosurgery and he recommended to transfer the patient back to [facility] for further evaluation. The patient was scheduled to undergo LP by IR however was placed on hold as the patient received Plavix last . [facility] was called this afternoon for respiratory distress. The patient was given Lasix 80 mg IV push and hydralazine 20 mg for a systolic blood pressure of 170s. He had a good response to the diuretics with a urine output of approximately 1550 ml. The patient transferred to ICU for close observation and critical care medicine was consulted for critical care management. When seen the patient is on 3 liters oxygen with sats of 97%. He is tachycardiac with heart rate of 107 and blood pressure 145/75. A chest x-ray from this afternoon showed cardiomegaly with pulmonary vascular engorgement. He also had an ABG on 2 liters oxygen which showed a pH of 7.34, CO2 32, pAO2 77, bicarb 17, sats of 93%. Most of the history was obtained from reviewing the medical records as the patient is a poor historian secondary due to his lethargy and mental status. 02/15 Patient went into Afib with RVR overnight given Lopressor 5mg IV x1, troponin increased 5.53 this morning from 1.44 seen by Cards this morning. T: 103.8. Objective Vital Signs Date Time Temp Pulse Resp B/P (MAP) Pulse Ox O2 Delivery O2 Flow Rate FiO2 02/15/17 09:06 122 02/15/17 08:06 97 Nasal Cannula 2.00 02/15/17 04:00 100.4 22 114/79 (91) Intake and Output 02/15/17 02/15/17 02/16/17 08:00 16:00 00:00 Intake Total 193 ml Output Total 250 ml Balance -57 ml Result Diagram: 02/15/17 0527 02/15/17 0527 Other Results Laboratory Tests Test 02/14/17 13:31 02/14/17 13:56 02/14/17 15:19 02/14/17 16:00 Stool C. difficile Toxin (PCR) NEGATIVE Stl C. difficile Toxin Epiderm 027 PRESUMPTIVE NEGATIVE Blood Gas Puncture Site LT RADIAL Blood Gas Patient Temperature 98.6 Blood Gas HCO3 17 mmol/L Blood Gas Base Excess -7.9 mmol/L Blood Gas Oxygen Saturation 93 % Arterial Blood pH 7.34 Arterial Blood Partial Pressure CO2 32 mmHg Arterial Blood Partial Pressure O2 77 mmHg Arterial Blood Oxygen Content 16.5 Vol % Arterial Blood Carboxyhemoglobin 1.0 % Arterial Blood Methemoglobin 0.7 % Blood Gas Hemoglobin 12.5 G/DL Oxygen Delivery Device NASAL CANNULA Blood Gas Liter Flow 2 L/M Total Creatine Kinase 354 U/L Creatine Kinase MB 2.5 NG/ML Creatine Kinase MB % 0.7 % Troponin I 1.44 NG/ML B-Type Natriuretic Peptide 1842 PG/ML Nasal Screen MRSA (PCR) MRSA NOT DETECTED Test 02/14/17 17:05 02/14/17 21:33 02/15/17 05:27 Vancomycin Level Trough 16.8 MCG/ML Troponin I 1.44 NG/ML 5.53 NG/ML White Blood Count 14.0 TH/MM3 Red Blood Count 3.48 MIL/MM3 Hemoglobin 11.5 GM/DL Hematocrit 35.0 % Mean Corpuscular Volume 100.5 FL Mean Corpuscular Hemoglobin 33.1 PG Mean Corpuscular Hemoglobin Concent 33.0 % Red Cell Distribution Width 14.0 % Platelet Count 212 TH/MM3 Mean Platelet Volume 8.2 FL Neutrophils (%) (Auto) 81.4 % Lymphocytes (%) (Auto) 7.6 % Monocytes (%) (Auto) 10.8 % Eosinophils (%) (Auto) 0.0 % Basophils (%) (Auto) 0.2 % Neutrophils # (Auto) 11.4 TH/MM3 Lymphocytes # (Auto) 1.1 TH/MM3 Monocytes # (Auto) 1.5 TH/MM3 Eosinophils # (Auto) 0.0 TH/MM3 Basophils # (Auto) 0.0 TH/MM3 CBC Comment DIFF FINAL Differential Comment Blood Urea Nitrogen 31 MG/DL Creatinine 1.98 MG/DL Random Glucose 242 MG/DL Calcium Level 8.7 MG/DL Sodium Level 143 MEQ/L Potassium Level 2.5 MEQ/L Chloride Level 108 MEQ/L Carbon Dioxide Level 18.6 MEQ/L Anion Gap 16 MEQ/L Estimat Glomerular Filtration Rate 34 ML/MIN Imaging Last Impressions Chest X-Ray 02/14/17 0000 Signed Impressions: Service Date/Time: Tuesday, February 14, 2017 13:49 - CONCLUSION: Limited exam due to motion. Cardiomegaly with pulmonary vascular engorgement. Fredy Bernal Jr., MD Head CT 02/11/17 0815 Signed Impressions: Service Date/Time: Saturday, February 11, 2017 08:53 - CONCLUSION: 1. There is intracranial air and left scalp edema, consistent with deep brain stimulator placement 2 days ago. The distal tip of the deep brain stimulator is in the region of the left basal ganglia and thalamus. 2. Otherwise, no acute finding is identified. Martir Cummings MD Objective Remarks GENERAL: Patient is lying in bed in no acute resp distress SKIN: Warm and dry. HEAD: Normocephalic. EYES: No scleral icterus. No injection or drainage. NECK: Supple, trachea midline. No JVD or lymphadenopathy. CARDIOVASCULAR: tachycardic without murmurs, gallops, or rubs. RESPIRATORY: Breath sounds equal bilaterally. No accessory muscle use. GASTROINTESTINAL: Abdomen soft, non-tender, nondistended. MUSCULOSKELETAL: No cyanosis, or edema. Neuro: Non verbal. Awake. A/P Assessment and Plan 1. Acute hypoxemic respiratory failure. 2. Afib with RVR 3. Altered mental status. 4. Essential tremor. 5. Status post deep brain stimulator placement on February 02 at the [facility]. 6. Acute on chronic kidney disease. 7. Hypertension. 8. Hyperglycemia with underlying history of diabetes mellitus. 9. Coronary artery disease. 10. Febrile illness. Plan Neuro: Monitor neuro status closely and avoid any sedatives. Continue with Topamax 100 mg p.o. b.i.d. and Wellbutrin [address] brain 02/11 negative for acute disease. s/p deep brain stimulator placement on February 02 at the [facility]. Patient to transfer back to [facility] when stable. Pulm: Continue with oxygen and maintain sats above 92%. Bronchodilators, Aspiration precautions. CV: Monitor HR and BP and maintain MAP >65 mmHg. On Coreg, 6.25 mg b.i.d., lisinopril 2.5 mg daily, Imdur 90 mg p.o. b.i.d., Inderal 60 mg q. 12. ASA/Lipitor Cards is following- Dr. Elias. Amio drip per cards : Monitor renal function Is and Os and avoid nephrotoxins. For K replacement today Decrease Lasix 40mg daily GI: speech therapy for evaluation. Diet per speech if kept NPO will insert NGT for tube feed and meds ID: Continue with abx per ID( on cefepime, Flagyl and vancomycin). Monitor for signs of infections ( fever and WBC). blood culture and urine culture 02/11: No growth Follow up on BC from 02/14 Discussed with ID-Dr. Soto and IR- Dr. Zendejas its medically necessary to do procedure. Patient was given Lovenox this morning and ASA yesterday however given his clinical condition It is necessary to proceed with LP. Heme: Monitor CBC. Endo: Continue SSI with Accu-Cheks for glycemic control. No indication for GI prophylaxis and DVT prophylaxis with SCDs. Lovenox 40mg Q12 For transfer to [facility] once stable Level 3 Nini Oakes MD Feb 15, 2017 09:27
[2017-02-15] MEDS: POTASSIUM CHLOR 20 MEQ PREMIX 100 ML IV SCH ×2 (09:45→11:59)
[2017-02-15] MEDS: ASPIRIN EC 81 MG TABEC PO SCH (09:45)
[2017-02-15] MEDS ORDERED: POTASSIUM CHLORIDE 20 MEQ PWD PACKET PO ONE (09:45)
--- NOTE | 2017-02-15 10:25 | MB ---
cc: LAZ ELIAS MD DATE OF CONSULTATION: 02/15/2017 REASON FOR CONSULTATION CHF, atrial fibrillation and elevated troponin. HISTORY OF PRESENT ILLNESS Mr. Torres is a 71-year-old patient of mine who does have a history of coronary artery disease and ischemic cardiomyopathy which has subsequently resolved, hypertension, hyperlipidemia and diabetes. He is status post recent deep brain stimulator implantation at the [facility]. He presented to [place] with fever and tremors and was subsequently diagnosed with sepsis. He has been here for several days and now is having difficulties with atrial fibrillation and rapid ventricular rate as well as heart failure. Cardiology was subsequently consulted. The patient does remain confused and is unable to give any verbal history. The history to follow is per my office records. PAST MEDICAL HISTORY Significant for coronary artery disease. His last catheterization in 2013 showed mild to moderate coronary disease of the LAD with FFR of 0.84. At the midportion it was quite small, being about 1.5 mm. There was mild disease of the ramus and circumflex and a 40% mid RCA stenosis. More recently he had a nuclear stress test that showed an EF of 35%. There is mild ischemia and infarction of the mid-septum and infarction of most of the inferior wall and apex. There is also a small mild area of basal lateral ischemia that was unchanged. Echocardiogram from December 02, 2016 shows an EF of 55%. PAST MEDICAL HISTORY 1. Hypertension. 2. Hyperlipidemia. 3. Diabetes. 4. Gastric ulcer. 5. Gastroparesis. 6. Neuropathy. 7. Tremors. Of note, he does not have a prior history of atrial fibrillation. His surgical history does include drug-eluting stents to the LAD and circumflex as well as cholecystectomy. ALLERGIES CONTRAST. FAMILY HISTORY Positive for C AD. SOCIAL HISTORY The patient is and does not smoke. REVIEW OF SYSTEMS Unable. MEDICATIONS Current medications per the record. PHYSICAL EXAMINATION VITAL SIGNS: On physical examination vital signs are 100.4, 125, 22, 114/79. GENERAL: The patient is not responsive to verbal stimulation. He is moving about in the bed spontaneously. LUNGS: Clear to auscultation bilaterally. CARDIOVASCULAR: Tachycardic with any irregularly irregular rhythm. ABDOMEN: Soft. EXTREMITIES: Free from edema. LABORATORY Creatinine 1.64. Serial troponins 1.44/1.44. CK-MB% 0.7. BNP 1842. IMAGING Chest x-ray was limited secondary to motion. TELEMETRY Telemetry shows atrial fibrillation with rapid ventricular rate at 110 beats a minute. IMPRESSIONS/RECOMMENDATIONS 1. CHF: The patient certainly has a history of cardiomyopathy though his most recent EF by echo was normal. The nuclear stress test showed an EF of 35. In any case he does appear to have been fluid overloaded and diuresed. He is on beta blockade which I would continue along with the diuretics. 2. Elevated troponin: This is most consistent with a secondary MA in light of his uncontrolled hypertension at times with a blood pressure of 183/123 last evening. Additionally, he has had rapid ventricular rate episodes up into the 140s and 150s. Thus conservative medical management should be continued at this point. 3. Atrial fibrillation: This does appear to be new-onset atrial fibrillation. It is difficult to tell, however, as he is rolling around in bed and is not likely to even cooperate for an EKG, though we will certainly try and obtain one of these this morning. At this point I would continue with the beta blockade for rate control. If he has more episodes of RVR, consideration will be given towards amiodarone as he has been relatively hypotensive and has significant renal insufficiency. Regarding anticoagulation he is on low-dose Lovenox with significant renal impairment. Until we have the atrial fibrillation clearly documented on 12-lead, I will hold off on any changes particularly in light of his renal insufficiency and recent stimulator placement. 4. Sepsis: Per the primary team and Infectious Disease. Laz Elias M.D. ТАТЬЯНА /7:30 AM /10:04 AM
--- NOTE | 2017-02-15 10:32 | RADRPT ---
EXAM DATE/TIME: 02/15/2017 09:53 [place] COMPARISON: CHEST SINGLE AP, February 14, 2017, 13:49. INDICATIONS : Short of breath MEDICAL HISTORY : Hypertension. Myocardial infarction. Congestive heart failure. diverticulosis SURGICAL HISTORY : Coronary artery stent. Pacemaker. ENCOUNTER: Subsequent ACUITY: 4 - 6 days PAIN SCORE: Non-responsive. LOCATION: Bilateral chest FINDINGS: And demonstrated is diminished inspiratory effort. Heart is mildly enlarged perihilar infiltrates con sistent with pulmonary vascular congestion appreciated without consolidating infiltrates. Device agai n overlies the upper left hemithorax. CONCLUSION: Stable chest. Reuben Rossi MD on February 15, 2017 at 10:30 Board Certified Radiologist. This report was verified electronically.
[2017-02-15 10:56] LABS: MAGNESIUM 1.9 MG/DL (1.5-2.5)
--- NOTE | 2017-02-15 11:01 | EKG ---
Date Performed: 02/14/2017 Time Performed: 14:23:08 PTAGE: 71 years EKG: Sinus tachycardia Left axis deviation Nonspecific lateral ST-T wave changes Borderline ECG PREVIOUS TRACING : 03/13/2015 09.50 No significant change from the old tracing. DOCTOR: Rei Ling Interpretating Date/Time 02/15/2017 11:01:27
[2017-02-15] MEDS ORDERED: SODIUM PHOSPHATE INJ 15 MMOL in SODIUM CHLORIDE 0.9% INJ 150 ML IV ONE (13:00)
--- NOTE | 2017-02-15 14:08 | HHI.PR ---
Subjective Subjective Remarks Now resting in the bed in the ICU setting Tachycardic, 120s-130s, atrial fibrillation, now on amiodarone drip Febrile within the last 24 hours Pale ,weakened (Sri Lee) Review of Systems Constitutional Constitutional: Fever, Fatigue, Weakness Constitutional Remarks Unable to assess with patient (Sri Lee) Musculoskeletal MS: Weakness (Sri Lee) Neurologic Neurologic: Lethargic (Sri Lee) Vitals/Results Intake & Output 02/15/17 02/15/17 02/16/17 14:59 22:59 06:59 Intake Total 103 ml Balance 103 ml IV Total 103 ml Vital Signs Vital Signs Date Time Temp Pulse Resp B/P (MAP) Pulse Ox O2 Delivery O2 Flow Rate FiO2 02/15/17 12:00 128 02/15/17 11:00 127 02/15/17 11:00 100 Nasal Cannula 2.00 02/15/17 10:01 129 02/15/17 10:00 130 02/15/17 09:06 122 02/15/17 09:06 122 02/15/17 09:00 117 02/15/17 08:06 97 Nasal Cannula 2.00 02/15/17 08:00 98.3 02/15/17 08:00 114 02/15/17 06:00 135 02/15/17 04:00 125 02/15/17 04:00 100.4 125 22 114/79 (91) 96 02/15/17 02:00 109 02/15/17 00:00 110 02/15/17 00:00 103.8 110 31 155/63 (93) 98 02/14/17 22:00 111 02/14/17 20:01 100 Nasal Cannula 3.00 02/14/17 20:00 98.0 113 41 183/123 (143) 99 02/14/17 20:00 113 02/14/17 19:04 110 02/14/17 19:04 110 39 163/82 (109) 98 02/14/17 19:00 Nasal Cannula 2.00 02/14/17 18:52 111 36 183/84 (117) 98 02/14/17 18:52 111 02/14/17 15:30 111 26 170/100 (123) 97 02/14/17 15:15 109 178/88 (118) 97 (Sri Lee) CBC/BMP: 02/15/17 0527 02/15/17 0527 Lab Results Laboratory Tests Test 02/14/17 15:19 02/14/17 16:00 02/14/17 17:05 02/14/17 21:33 Total Creatine Kinase 354 U/L Creatine Kinase MB 2.5 NG/ML Creatine Kinase MB % 0.7 % Troponin I 1.44 NG/ML 1.44 NG/ML B-Type Natriuretic Peptide 1842 PG/ML Nasal Screen MRSA (PCR) MRSA NOT DETECTED Vancomycin Level Trough 16.8 MCG/ML Test 02/15/17 05:27 White Blood Count 14.0 TH/MM3 Red Blood Count 3.48 MIL/MM3 Hemoglobin 11.5 GM/DL Hematocrit 35.0 % Mean Corpuscular Volume 100.5 FL Mean Corpuscular Hemoglobin 33.1 PG Mean Corpuscular Hemoglobin Concent 33.0 % Red Cell Distribution Width 14.0 % Platelet Count 212 TH/MM3 Mean Platelet Volume 8.2 FL Neutrophils (%) (Auto) 81.4 % Lymphocytes (%) (Auto) 7.6 % Monocytes (%) (Auto) 10.8 % Eosinophils (%) (Auto) 0.0 % Basophils (%) (Auto) 0.2 % Neutrophils # (Auto) 11.4 TH/MM3 Lymphocytes # (Auto) 1.1 TH/MM3 Monocytes # (Auto) 1.5 TH/MM3 Eosinophils # (Auto) 0.0 TH/MM3 Basophils # (Auto) 0.0 TH/MM3 CBC Comment DIFF FINAL Differential Comment Blood Urea Nitrogen 31 MG/DL Creatinine 1.98 MG/DL Random Glucose 242 MG/DL Calcium Level 8.7 MG/DL Sodium Level 143 MEQ/L Potassium Level 2.5 MEQ/L Chloride Level 108 MEQ/L Carbon Dioxide Level 18.6 MEQ/L Anion Gap 16 MEQ/L Estimat Glomerular Filtration Rate 34 ML/MIN Phosphorus Level 2.0 MG/DL Magnesium Level 1.9 MG/DL Troponin I 5.53 NG/ML Microbiology Microbiology 02/14/17 Aerobic Blood Culture - Preliminary, Resulted NO GROWTH IN 1 DAY 02/14/17 Anaerobic Blood Culture - Preliminary, Resulted NO GROWTH IN 1 DAY 02/14/17 Aerobic Blood Culture - Preliminary, Resulted NO GROWTH IN 1 DAY 02/14/17 Anaerobic Blood Culture - Preliminary, Resulted NO GROWTH IN 1 DAY Imaging Remarks Last Impressions Chest X-Ray 02/15/17 0000 Signed Impressions: Service Date/Time: Wednesday, February 15, 2017 09:53 - CONCLUSION: Stable chest. Reuben Rossi MD Head CT 02/11/17 0815 Signed Impressions: Service Date/Time: Saturday, February 11, 2017 08:53 - CONCLUSION: 1. There is intracranial air and left scalp edema, consistent with deep brain stimulator placement 2 days ago. The distal tip of the deep brain stimulator is in the region of the left basal ganglia and thalamus. 2. Otherwise, no acute finding is identified. Martir Cummings MD (Rosa,Sri M. TECHNICIAN BIOLOGICAL HEALTH) Physical Exam General General Appearance: No Acute Distress, Comfortable, Pale, Obese (Monson,Sri M. TECHNICIAN BIOLOGICAL HEALTH) Eyes Eye Exam: Pupils Equal, Pupils Reactive, Sclera White (Monson,Sri M. TECHNICIAN BIOLOGICAL HEALTH) Ears & Nose Ears & Nose Exam: Nasal Mucosa [place] (Rosa,Sri M. TECHNICIAN BIOLOGICAL HEALTH) Throat Throat Exam: Oral Mucosa [place] & Moist (pale) (Monson,Sri M. TECHNICIAN BIOLOGICAL HEALTH) Neck Neck Exam: Neck Supple, Trachea Midline (Rosa,Sri M. TECHNICIAN BIOLOGICAL HEALTH) Pulmonary Resp Exam: Crackles, Decreased Bases, Diminished Breath Sounds (Rosa,Sri M. TECHNICIAN BIOLOGICAL HEALTH) Cardiology CV Exam: Regular, Normal Sinus Rhythm, Tachycardia, Dyspnea on Exertion (low volumes) (Rosa,Sri M. TECHNICIAN BIOLOGICAL HEALTH) Gastrointestinal/Abdomen GI Exam: Soft, Non-Tender, Bowel Sounds Present (Rosa,Sri M. TECHNICIAN BIOLOGICAL HEALTH) Integumentary Skin Exam: Warm, Dry (Monson,Sri M. TECHNICIAN BIOLOGICAL HEALTH) Extremeties Extremities Exam: No Edema (Rosa,Sri M. TECHNICIAN BIOLOGICAL HEALTH) Neurologic Neuro Remarks Lethargic, (Rosa,Sri M. TECHNICIAN BIOLOGICAL HEALTH) Psychiatric Psych Exam: Appropriate Responses (Monson,Sri M. TECHNICIAN BIOLOGICAL HEALTH) Assessment/Plan Assessment/Plan Vital signs reviewed, still has fevers in the past 24 hours, tachycardic with pulse rate 120s 130s, now on IV amiodarone drip Labs reviewed, hypokalemia severe, Sepsis, etiology unclear, recent placement of deep brain stimulator.?? Procedures related infection, rule out meningitis or meningoencephalitis. -Infectious disease input appreciated, Appreciate neurosurgery input recommends and discussed transfer back to the [facility]- , but unstable and requiring intensive care therapy for now No transfer considered for now Continue antibiotic therapy per ID, appreciate input, monitor blood cultures, spinal tap completed on 02-15 IR, patient critical Continues with lethargy, otherwise condition declining Hypokalemia severe, receiving IV potassium supplements, we'll recheck his labs in the morning Uncontrolled atrial fibrillation with RVR , now requiring amiodarone drip for heart rate control, cardiology consult appreciate input -Check stool for C. difficile, negative, Type 2 diabetes, has insulin pump -Patient was put on Accu-Cheks before meals and at bedtime with insulin protocol Will monitor without insulin pump now for no potentials of hypoglycemic reactions History of Coronary artery disease History myocardial infarction and stents Hypertension, uncontrolled for the past 24 hours, monitored in the intensive care setting, last few hours blood pressure has trended down with medical management Chronic kidney disease, continue to monitor labs for now SCDs for DVT prophylaxis, Lovenox Physician to physician referral done for [facility] discharge on 02-14, but patient's condition rapidly declined with hypertension uncontrolled, pulmonary congestion, tachycardia Patient is now in the intensive care setting. Per family's request he is full code for now, Discussed with nurse, appreciate senior office assistant input Discussed with Dr. garcia, seen on his behalf Condition guarded (Sri Lee) Assessment/Plan pt is seen & examined d/w pt's son & sister at bedside. 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
--- NOTE | 2017-02-15 14:55 | HHI.IDPN ---
Subjective Subjective Remarks Remains critical and unstabel WOrsening mental status, pt is now non verbal, though opens eyes and makes eye contact to voice Fever up to 103.8 Antibiotics vanco cefepime flagyl Allergies: Coded Allergies: diatrizoate meglumine (Unverified Allergy, Unknown, 02/02/17) gadobenic acid (Unverified Allergy, Unknown, 02/02/17) gadodiamide (Unverified Allergy, Unknown, 02/02/17) gadoteridol (Unverified Allergy, Unknown, 02/02/17) iodixanol (Unverified Allergy, Unknown, 02/02/17) iohexol (Unverified Allergy, Unknown, 02/02/17) Objective . Vital Signs Date Time Temp Pulse Resp B/P (MAP) Pulse Ox O2 Delivery O2 Flow Rate FiO2 02/15/17 12:00 128 02/15/17 11:00 127 02/15/17 11:00 100 Nasal Cannula 2.00 02/15/17 10:01 129 02/15/17 10:00 130 02/15/17 09:06 122 02/15/17 09:06 122 02/15/17 09:00 117 02/15/17 08:06 97 Nasal Cannula 2.00 02/15/17 08:00 98.3 02/15/17 08:00 114 02/15/17 06:00 135 02/15/17 04:00 125 02/15/17 04:00 100.4 125 22 114/79 (91) 96 02/15/17 02:00 109 02/15/17 00:00 110 02/15/17 00:00 103.8 110 31 155/63 (93) 98 02/14/17 22:00 111 02/14/17 20:01 100 Nasal Cannula 3.00 02/14/17 20:00 98.0 113 41 183/123 (143) 99 02/14/17 20:00 113 02/14/17 19:04 110 02/14/17 19:04 110 39 163/82 (109) 98 02/14/17 19:00 Nasal Cannula 2.00 02/14/17 18:52 111 36 183/84 (117) 98 02/14/17 18:52 111 02/14/17 15:30 111 26 170/100 (123) 97 02/14/17 15:15 109 178/88 (118) 97 02/15/17 02/15/17 02/16/17 15:00 23:00 07:00 Intake Total 103 ml Balance 103 ml IV Total 103 ml . Laboratory Tests Test 02/14/17 05:17 02/15/17 05:27 White Blood Count 10.2 TH/MM3 14.0 TH/MM3 Red Blood Count 3.15 MIL/MM3 3.48 MIL/MM3 Hemoglobin 10.1 GM/DL 11.5 GM/DL Hematocrit 32.0 % 35.0 % Mean Corpuscular Volume 101.7 FL 100.5 FL Mean Corpuscular Hemoglobin 32.2 PG 33.1 PG Mean Corpuscular Hemoglobin Concent 31.7 % 33.0 % Red Cell Distribution Width 13.9 % 14.0 % Platelet Count 215 TH/MM3 212 TH/MM3 Mean Platelet Volume 7.8 FL 8.2 FL Neutrophils (%) (Auto) 81.4 % Lymphocytes (%) (Auto) 7.6 % Monocytes (%) (Auto) 10.8 % Eosinophils (%) (Auto) 0.0 % Basophils (%) (Auto) 0.2 % Neutrophils # (Auto) 11.4 TH/MM3 Lymphocytes # (Auto) 1.1 TH/MM3 Monocytes # (Auto) 1.5 TH/MM3 Eosinophils # (Auto) 0.0 TH/MM3 Basophils # (Auto) 0.0 TH/MM3 CBC Comment DIFF FINAL Differential Comment Laboratory Tests Test 02/14/17 05:17 02/14/17 15:19 02/14/17 21:33 02/15/17 05:27 Blood Urea Nitrogen 23 MG/DL 31 MG/DL Creatinine 1.64 MG/DL 1.98 MG/DL Random Glucose 278 MG/DL 242 MG/DL Calcium Level 8.2 MG/DL 8.7 MG/DL Sodium Level 138 MEQ/L 143 MEQ/L Potassium Level 3.8 MEQ/L 2.5 MEQ/L Chloride Level 105 MEQ/L 108 MEQ/L Carbon Dioxide Level 23.3 MEQ/L 18.6 MEQ/L Anion Gap 10 MEQ/L 16 MEQ/L Estimat Glomerular Filtration Rate 42 ML/MIN 34 ML/MIN Total Creatine Kinase 354 U/L Creatine Kinase MB 2.5 NG/ML Creatine Kinase MB % 0.7 % Troponin I 1.44 NG/ML 1.44 NG/ML 5.53 NG/ML B-Type Natriuretic Peptide 1842 PG/ML Phosphorus Level 2.0 MG/DL Magnesium Level 1.9 MG/DL Microbiology Date/Time Source Procedure Growth Status 02/14/17 17:05 Blood Peripheral Aerobic Blood Culture - Preliminary NO GROWTH IN 1 DAY Resulted 02/14/17 17:05 Blood Peripheral Anaerobic Blood Culture - Preliminary NO GROWTH IN 1 DAY Resulted 02/14/17 17:00 Blood Peripheral Aerobic Blood Culture - Preliminary NO GROWTH IN 1 DAY Resulted 02/14/17 17:00 Blood Peripheral Anaerobic Blood Culture - Preliminary NO GROWTH IN 1 DAY Resulted Imaging Last Impressions Chest X-Ray 02/15/17 0000 Signed Impressions: Service Date/Time: Wednesday, February 15, 2017 09:53 - CONCLUSION: Stable chest. Reuben Rossi MD Head CT 02/11/17 0815 Signed Impressions: Service Date/Time: Saturday, February 11, 2017 08:53 - CONCLUSION: 1. There is intracranial air and left scalp edema, consistent with deep brain stimulator placement 2 days ago. The distal tip of the deep brain stimulator is in the region of the left basal ganglia and thalamus. 2. Otherwise, no acute finding is identified. Martir Cummings MD Physical Exam CONSTITUTIONAL/GENERAL: This is an adequately nourished patient, in no apparent distress. TUBES/LINES/DRAINS: SKIN: No jaundice, rashes, or lesions. . Skin temperature appropriate. Not diaphoretic. HEAD: Normocephalic. L parietal area with healing incision , no fluctuance, no drainage or redness EYES: Pupils equal and round and reactive. Extraocular motions intact. No scleral icterus. No injection or drainage. Fundi not examined. ENT: Hearing grossly normal. Oral mucosae without visible erythema, exudates, masses, or lesions. NECK: Trachea midline. Supple, nontender. CARDIOVASCULAR: Regular rate and rhythm without murmurs, gallops, or rubs. No JVD. Peripheral pulses symmetric. Pacer in place L chest w/o obvious fluctuance Incision appear clean RESPIRATORY/CHEST: Tachypnea, somewhat labored respirations. Clear to auscultation. Breath sounds equal bilaterally. No wheezes, rales, or rhonchi. GASTROINTESTINAL: Abdomen soft, non-tender, nondistended. No hepato-splenomegaly , or palpable masses. No guarding. Bowel sounds present. ; gonzalez in with clear yellow urine MUSCULOSKELETAL: Extremities without clubbing, cyanosis, or edema. No mottling or clubbing. NEUROLOGICAL: obtunded . 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 Pt has Plavix x1 onThur after a whole week off - LP is postponed 2/2 recent anticoagulation; anticipate 5 days off plavix until cleareed for LP CONSUELO [place] NSTEMI with uncontrolled afib with RVR and CHF cardiology ff Critically ill and unstable Rec's: LP is required to make correct diagnosis and francis abx ; pt is on empric Rx but is not respondin cont vancomycin, cefepime, flagyl Pt needs to be transfered to [facility] as soon as possible Discussed Condition With sister @ b/s Bridget Zafar and Vandana Park MD Feb 15, 2017 14:55
--- NOTE | 2017-02-15 15:04 | EKG ---
Date Performed: 02/15/2017 Time Performed: 09:30:40 PTAGE: 71 years EKG: ATRIAL FLUTTER/TACHYCARDIA WITH RAPID VENTRICULAR RESPONSE MARKED LEFT AXIS DEVIATION LEFT VENTRICULAR HYPERTROPHY AND ST-T CHANGE ABNORMAL ECG PREVIOUS TRACING : 02/14/2017 16.57 Since the prior tracing, the patient has developed atrial f lutter. There has been some variation in the nonspecific ST-T wave changes. DOCTOR: So Aguilar Interpretating Date/Time 02/15/2017 15:03:54
--- NOTE | 2017-02-15 15:31 | PD.RAD ---
Post Procedure Progress Note Pre Procedure Diagnosis: (1) Sepsis (2) Altered mental status Post Procedure Diagnosis: (1) Sepsis (2) Altered mental status Procedure Date: Feb 15, 2017 Supervising Radiologist: Martir Zendejas Proceduralist/Assist: Jhony Woo, RT(R), Mimi Caceres RT(R)() Anesthesia: Local Plan of Activity Patient to Unit: Critical Care Patient Condition: Critical See PACS Report for procedural detail/treatment Spinal Procedure Lumbar Puncture L3-L4 Fluid Removal (CCs): 12 Fluid Description: Cloudy, Yellow Puncture Time: 14:37 Martir Zendejas MD Feb 15, 2017 15:31
--- NOTE | 2017-02-15 16:17 | RADRPT ---
EXAM DATE/TIME: 02/15/2017 14:28 [facility] COMPARISON: No previous studies available for comparison. INDICATIONS : Patient is in need of a lumbar puncture for evaluation of CSF due to continued altered mental status. MEDICAL HISTORY : History of HTN, DM, HLD, CAD, CHF, MD, AFIB, ischemic cardiomyopathy, gastric ulcer, gastroparesis, r enal stones. SURGICAL HISTORY : History of placement of deep brain stimulator, insulin pump, cardiac catheterization with stents, cho lecystectomy, renal stone removal, appendectomy, vasectomy. ENCOUNTER: Initial ACUITY: 4 -6 days PAIN SCORE: 0/10 LUMBAR PUNCTURE TIME: 1437 hours FLUORO TIME: 1.6 minutes IMAGE SERIES: 0 ACCESS LEVEL: L3-4 FLUID: 12 cc of cloudy, yellow CSF was collected and sent to the laboratory for analysis. PROCEDURE : 1. Fluoroscopic guided lumbar puncture. The risks, benefits and alternatives to the procedure were explained and verbal and written consent w as obtained. The site was prepped in sterile fashion. Full sterile technique was used, including ca p, mask, sterile gloves and gown and a large sterile sheet. Hand hygiene and 2% chlorhexidine and/or betadine/alcohol prep was utilized per protocol for cutaneous antisepsis. The skin and subcutaneous tissues were infiltrated with local anesthetic solution. With fluoroscopic guidance the lumbar thecal sac was punctured at the level above. The fluid describ ed above was removed without difficulty. The patient tolerated the procedure well and there were no complications. CONCLUSION: Uncomplicated fluoroscopically guided lumbar puncture. Martir Zendejas MD on February 15, 2017 at 16:14 Board Certified Radiologist. This report was verified electronically.
[2017-02-15] MEDS: VANCOMYCIN INJ 2,000 MG in SODIUM CHLORID 0.9% 500 ML INJ 500 ML IV SCH (17:22)
[2017-02-15 17:32] LABS: CSF LYMPHOCYTES 40 %; CSF MONOCYTES 1 %; CSF NEUTROPHILS 58 %
[2017-02-15 17:33] LABS: GROSS BLOOD TUBE #1 0 (0); SUPERNATE COLOR TUBE #1 SLIGHTLY XANTHOCHROM (CLEAR); VOLUME TUBE # 2 2.9 ML
[2017-02-15 17:34] LABS: GROSS BLOOD TUBE #2 0 (0); GROSS BLOOD TUBE #3 0 (0); SUPERNATE COLOR TUBE #2 SLIGHTLY XANTHOCHROM (CLEAR); SUPERNATE COLOR TUBE #3 SLIGHTLY XANTHOCHROM (CLEAR); VOLUME TUBE # 4 3.4 ML
[2017-02-15 17:35] LABS: GROSS BLOOD TUBE #4 0 (0); SUPERNATE COLOR TUBE #4 SLIGHTLY XANTHOCHROM (CLEAR); WBC TUBE #4 766 /MM3 (0-10)
[2017-02-15] MEDS: ENALAPRILAT 1.25 MG/ML VIAL IV PUSH PRN (17:41)
[2017-02-15] MEDS ORDERED: METOPROLOL TARTRATE 5 MG/5 ML VIAL ONE (18:00)
[2017-02-15] MEDS: buPROPion HCL 100 MG TAB PO SCH (19:38)
[2017-02-15] MEDS: ATORVASTATIN 40 MG TAB PO SCH (19:38)
[2017-02-15] MEDS ORDERED: DEXMEDETOMIDINE INJ 200 MCG in SODIUM CHLORIDE 0.9% INJ 50 ML IV PRN (20:28)
[2017-02-15] MEDS ORDERED: ACETAMINOPHEN 1000 MG/100 ML VIAL IV PRN (20:30)
[2017-02-15] MEDS ORDERED: ONDANSETRON HCL 4 MG/2 ML VIAL IV PUSH PRN (20:30)
[2017-02-16] VITALS (24 sets, daily range): BP systolic 146–194; BP diastolic 76–103; PULSE 72–104; RESP 2–31; TEMP 98.4–100.1; O2SAT 94–100
[2017-02-16] MEDS: INSULIN NovoLIN REGULAR SUPPLEMENTAL SCALE SQ SCH ×6 (01:00→20:53)
[2017-02-16] MEDS: RESP: ALBUTEROL 2.5 MG/IPRATROPIUM 0.5 MG NEB (SCH) NEB ×5 (02:47→23:09)
[2017-02-16] MEDS: CHLORHEXIDINE GLUCONATE 2 % 1 PACK (2 CLOTHS)(taper/protocol) TOPICAL SCH (04:00)
[2017-02-16] MEDS: metroNIDAZOLE 500 MG INJ 100 ML IV SCH ×3 (05:29→20:51)
[2017-02-16] MEDS: ENALAPRILAT 1.25 MG/ML VIAL IV PUSH PRN (06:17)
[2017-02-16] MEDS: AMIODARONE INJ 450 MG in DEXTROSE 5% IN WATE(EXCEL) INJ 241 ML IV SCH ×2 (06:47)
[2017-02-16 07:28] LABS: AUTOMATED NEUTROPHIL # 14.1 TH/MM3 (1.8-7.7); BASOPHIL % 0.2 % (0.0-2.0); HEMATOCRIT 33.9 % (39.0-51.0); HEMO FLAGS DIFF FINAL; LYMPH % 6.9 % (9.0-44.0); LYMPHOCYTE # 1.1 TH/MM3 (1.0-4.8); MEAN CORPUSCULAR HEMOGLOBIN 32.5 PG (27.0-34.0); MEAN CORPUSCULAR HGB CONC 32.2 % (32.0-36.0); NEUT % 87.9 % (16.0-70.0); PLATELET COUNT 274 TH/MM3 (150-450); RED BLOOD COUNT 3.36 MIL/MM3 (4.50-5.90); RED CELL DISTRIBUTION WIDTH 14.1 % (11.6-17.2); WHITE BLOOD COUNT 16.1 TH/MM3 (4.0-11.0)
[2017-02-16 07:50] LABS: BICARBONATE 19.5 MEQ/L (21.0-32.0)
[2017-02-16 07:54] LABS: POTASSIUM 2.7 MEQ/L (3.5-5.1)
[2017-02-16] MEDS: TOPIRAMATE 100 MG TAB PO SCH ×2 (09:00→20:47)
[2017-02-16] MEDS ORDERED: FUROSEMIDE 40 MG/4 ML VIAL IV PUSH SCH (09:00)
[2017-02-16] MEDS: LISINOPRIL 5 MG TAB PO SCH (09:00)
[2017-02-16] MEDS: ASPIRIN EC 81 MG TABEC PO SCH (09:00)
[2017-02-16] MEDS: ISOSORBIDE MONONITRATE 30 MG TAB PO SCH ×2 (09:00→20:46)
[2017-02-16] MEDS: CARVEDILOL 6.25 MG TAB PO SCH ×2 (09:00→20:47)
[2017-02-16] MEDS: PRIMIDONE 50 MG TAB PO SCH ×2 (09:00→20:47)
[2017-02-16] MEDS: PROPRANOLOL HCL 20 MG TAB PO SCH ×2 (09:00→20:50)
[2017-02-16] MEDS: GABAPENTIN 400 MG CAP PO SCH ×2 (09:00→20:47)
[2017-02-16] MEDS: ENOXAPARIN SODIUM 40 MG/0.4 ML SYRINGE SQ SCH (09:15)
[2017-02-16] MEDS: POTASSIUM CHLOR 20 MEQ PREMIX 100 ML IV SCH ×3 (09:15→13:15)
[2017-02-16] MEDS: CEFEPIME INJ 2,000 MG in SODIUM CHLORIDE 0.9% INJ 100 ML IV SCH ×2 (10:00→20:51)
[2017-02-16] MEDS ORDERED: POTASSIUM CHLOR 20 MEQ PREMIX 100 ML IV ONE (10:30)
--- NOTE | 2017-02-16 11:33 | HHI.CCPN ---
Subjective Remarks/Hospital Course The patient is a 71-year-old male with past medical history of hypertension, hyperlipidemia, coronary artery disease with previous PA and stent placements, diabetes mellitus and essential tremors. He underwent deep brain nerve stimulator on February 02 at the [facility]. He was admitted to [facility] on February 11 with febrile illness, confusion and headaches. CT scan of the brain was obtained which showed intracranial air and left scalp edema consistent with previous deep brain stimulator placement. No other acute findings identified. Chest x-ray on arrival showed mild atelectasis in the lung bases, otherwise no acute cardiopulmonary abnormalities. He has been seen by Dr. Soto from infectious disease and the patient was placed on broad- spectrum antibiotics, Vancomycin, cefepime and Flagyl. Also the patient was seen by Dr. Sullivan from neurosurgery and he recommended to transfer the patient back to [facility] for further evaluation. The patient was scheduled to undergo LP by IR however was placed on hold as the patient received Plavix last . [facility] was called this afternoon for respiratory distress. The patient was given Lasix 80 mg IV push and hydralazine 20 mg for a systolic blood pressure of 170s. He had a good response to the diuretics with a urine output of approximately 1550 ml. The patient transferred to ICU for close observation and critical care medicine was consulted for critical care management. When seen the patient is on 3 liters oxygen with sats of 97%. He is tachycardiac with heart rate of 107 and blood pressure 145/75. A chest x-ray from this afternoon showed cardiomegaly with pulmonary vascular engorgement. He also had an ABG on 2 liters oxygen which showed a pH of 7.34, CO2 32, pAO2 77, bicarb 17, sats of 93%. Most of the history was obtained from reviewing the medical records as the patient is a poor historian secondary due to his lethargy and mental status. 02/15 Patient went into Afib with RVR overnight given Lopressor 5mg IV x1, troponin increased 5.53 this morning from 1.44 seen by Cards this morning. T: 103.8. 02/16: Remains septic encephalopathy and critically ill. MAXIMUM TEMPERATURE 101.4. LP doen 02/15 consistent with meningitis (WBC 766 with 58% neutrophils, protein 176). Infection most likely related to DBS placement at [place]. Arrange for transfer to [place] emergently. Hold aspirin and all anticoagulation in anticipation of DBS removal Objective Vital Signs Date Time Temp Pulse Resp B/P (MAP) Pulse Ox O2 Delivery O2 Flow Rate FiO2 02/16/17 10:00 97 02/16/17 08:19 98 Nasal Cannula 4.00 02/16/17 06:47 171/85 02/16/17 04:00 98.9 13 Intake and Output 02/16/17 02/16/17 02/17/17 08:00 16:00 00:00 Intake Total 1203 ml Output Total 850 ml Balance 353 ml Result Diagram: 02/16/17 0647 02/16/17 0647 Imaging Last Impressions Chest X-Ray 02/14/17 0000 Signed Impressions: Service Date/Time: Tuesday, February 14, 2017 13:49 - CONCLUSION: Limited exam due to motion. Cardiomegaly with pulmonary vascular engorgement. Fredy Bernal Jr., MD Head CT 02/11/17 0815 Signed Impressions: Service Date/Time: Saturday, February 11, 2017 08:53 - CONCLUSION: 1. There is intracranial air and left scalp edema, consistent with deep brain stimulator placement 2 days ago. The distal tip of the deep brain stimulator is in the region of the left basal ganglia and thalamus. 2. Otherwise, no acute finding is identified. Martir Cummings MD Objective Remarks GENERAL: Patient is lying in bed critically ill confused, encephalopathy SKIN: Warm and dry. HEAD: Normocephalic. EYES: No scleral icterus. No injection or drainage. NECK: Supple, trachea midline. Mild neck stiffness CARDIOVASCULAR: tachycardic without murmurs, gallops, or rubs. RESPIRATORY: Breath sounds equal bilaterally. No accessory muscle use. GASTROINTESTINAL: Abdomen soft, non-tender, nondistended. MUSCULOSKELETAL: No cyanosis, or edema. Neuro: Non verbal. Moans intermittently. Moves all ext spontaneously, do not follow commands. A/P Assessment and Plan Severe sepsis Meningitis related to DBS implantation Acute encephalopathy NSTEMI Afib with RVR Essential tremor. Status post deep brain stimulator placement on February 02 at the [facility]. Acute on chronic kidney disease. Hypertension. Hyperglycemia with underlying history of diabetes mellitus. Coronary artery disease. Plan Neuro: LP findings and clinical picture consistent with meningitis related to DBS implantation Antibiotics per ID, vancomycin cefepime and Flagyl Emergency transfer to [place] for DBS removal Continue with Topamax 100 mg p.o. b.i.d. and Wellbutrin [address] brain 02/11 negative for acute disease. s/p deep brain stimulator placement on February 02 at the [facility]. Haldol PRN and Precedex as needed for agitation Encephalopathy secondary to sepsis and meningitis Pulm: Continue with oxygen and maintain sats above 92%. Bronchodilators, Aspiration precautions. Protecting airway at this time CV: Monitor HR and BP and maintain MAP >65 mmHg. On Coreg, 6.25 mg b.i.d., Imdur 90 mg p.o. b.i.d., Inderal [address] NGT if patient can tolerate Labetalol PRN for SBP >160 Hold ASA in anticipation of DBS removal. Hold lisinopril due to renal failure Cards is following- Dr. Elias. Amio drip per cards : Monitor renal function Is and Os and avoid nephrotoxins. For K replacement today Hold Lasix GI: NPO, insert NGT for tube feed and meds ID: Continue with abx per ID( on cefepime, Flagyl and vancomycin). Monitor for signs of infections ( fever and WBC). blood culture and urine culture 02/11: No growth. Follow up on BC from 02/14, F/U on CSF culture 02/15 Fluid studies consistent with meningitis Discussed with ID-Dr. Soto. Heme: Monitor CBC. Endo: Continue SSI with Accu-Cheks for glycemic control. No indication for GI prophylaxis and DVT prophylaxis with SCDs. Hold Lovenox For transfer to [facility] emergently CCT 35 Patient is critically ill with worsening sepsis and worsening mental status. He is on appropriate antibiotics, but has evidence of worsening encephalopathy and increasing white count. will need DBS removed-transfer to [place] emergently Dianne Mcmahan MD Feb 16, 2017 11:33
[2017-02-16] MEDS ORDERED: ACYCLOVIR IV SCH (12:00)
[2017-02-16] MEDS ORDERED: HYDROmorphone HCL PF 1 MG/ML VIAL IV PRN (12:00)
[2017-02-16] MEDS ORDERED: HYDROmorphone HCL PF 1 MG/ML VIAL IV ONE (12:00)
[2017-02-16] MEDS ORDERED: SODIUM CHLOR 0.9% IV SCH (12:00)
--- NOTE | 2017-02-16 12:09 | HHI.IDPN ---
Subjective Subjective Remarks Remains critical and unstabel Cont to do p[oorly Less febrile, but very confused Non verbal, just moaning CSF results noted Antibiotics vanco cefepime flagyl Allergies: Coded Allergies: diatrizoate meglumine (Unverified Allergy, Unknown, 02/02/17) gadobenic acid (Unverified Allergy, Unknown, 02/02/17) gadodiamide (Unverified Allergy, Unknown, 02/02/17) gadoteridol (Unverified Allergy, Unknown, 02/02/17) iodixanol (Unverified Allergy, Unknown, 02/02/17) iohexol (Unverified Allergy, Unknown, 02/02/17) Objective . Vital Signs Date Time Temp Pulse Resp B/P (MAP) Pulse Ox O2 Delivery O2 Flow Rate FiO2 02/16/17 11:00 98 22 174/85 (114) 100 02/16/17 10:01 97 25 182/98 (126) 99 02/16/17 10:00 97 28 100 02/16/17 10:00 97 02/16/17 09:19 100 19 161/90 (113) 99 02/16/17 09:01 103 27 194/102 (132) 100 02/16/17 09:00 102 31 100 02/16/17 08:19 98 Nasal Cannula 4.00 02/16/17 08:00 99.1 94 16 168/82 (110) 100 02/16/17 08:00 96 02/16/17 07:16 92 16 158/76 (103) 94 02/16/17 07:00 99 Nasal Cannula 4.00 02/16/17 07:00 98 20 180/103 (128) 95 02/16/17 06:47 94 171/85 02/16/17 06:00 97 02/16/17 04:00 87 02/16/17 04:00 98.9 91 13 178/95 (122) 02/16/17 02:00 86 02/16/17 00:00 99.3 89 20 150/81 (104) 99 02/16/17 00:00 86 02/15/17 22:00 85 02/15/17 21:19 95 Nasal Cannula 6.00 02/15/17 20:00 101.4 107 15 142/69 (93) 98 02/15/17 20:00 90 02/15/17 19:00 99 Nasal Cannula 2.00 02/15/17 18:22 101 02/15/17 18:15 100 02/15/17 18:15 100 19 173/104 (127) 98 02/15/17 18:06 96 33 175/95 (121) 93 02/15/17 18:06 96 02/15/17 18:00 102 02/15/17 18:00 102 26 191/102 (131) 93 02/15/17 17:53 101 17 197/106 (136) 98 02/15/17 17:51 101 26 215/96 (135) 97 02/15/17 17:49 103 35 174/101 (125) 97 02/15/17 17:46 101 32 177/134 (148) 98 02/15/17 17:45 101 24 97 02/15/17 17:37 103 33 180/97 (124) 96 02/15/17 17:31 103 34 191/101 (131) 98 02/15/17 17:30 102 26 97 02/15/17 17:24 103 02/15/17 17:16 101 32 172/77 (108) 96 02/15/17 17:15 101 30 96 02/15/17 17:01 99 38 189/95 (126) 98 02/15/17 17:00 99 23 98 02/15/17 16:59 98 34 184/95 (124) 98 02/15/17 16:45 101 21 184/97 (126) 99 02/15/17 16:30 100 23 172/91 (118) 99 02/15/17 16:30 100 02/15/17 16:15 97 02/15/17 16:15 97 35 174/95 (121) 96 02/15/17 16:00 98 30 172/89 (116) 98 02/15/17 16:00 98 02/15/17 15:45 97 02/15/17 15:41 96 02/15/17 15:30 96 02/15/17 15:15 95 02/15/17 15:00 96 02/15/17 13:01 91 20 163/82 (109) 99 02/15/17 13:01 91 02/15/17 12:00 128 25 128/78 (95) 97 02/15/17 12:00 128 02/15/17 12:00 128 . Laboratory Tests Test 02/15/17 05:27 02/16/17 06:47 White Blood Count 14.0 TH/MM3 16.1 TH/MM3 Red Blood Count 3.48 MIL/MM3 3.36 MIL/MM3 Hemoglobin 11.5 GM/DL 10.9 GM/DL Hematocrit 35.0 % 33.9 % Mean Corpuscular Volume 100.5 FL 101.0 FL Mean Corpuscular Hemoglobin 33.1 PG 32.5 PG Mean Corpuscular Hemoglobin Concent 33.0 % 32.2 % Red Cell Distribution Width 14.0 % 14.1 % Platelet Count 212 TH/MM3 274 TH/MM3 Mean Platelet Volume 8.2 FL 8.0 FL Neutrophils (%) (Auto) 81.4 % 87.9 % Lymphocytes (%) (Auto) 7.6 % 6.9 % Monocytes (%) (Auto) 10.8 % 5.0 % Eosinophils (%) (Auto) 0.0 % 0.0 % Basophils (%) (Auto) 0.2 % 0.2 % Neutrophils # (Auto) 11.4 TH/MM3 14.1 TH/MM3 Lymphocytes # (Auto) 1.1 TH/MM3 1.1 TH/MM3 Monocytes # (Auto) 1.5 TH/MM3 0.8 TH/MM3 Eosinophils # (Auto) 0.0 TH/MM3 0.0 TH/MM3 Basophils # (Auto) 0.0 TH/MM3 0.0 TH/MM3 CBC Comment DIFF FINAL DIFF FINAL Differential Comment Laboratory Tests Test 02/14/17 15:19 02/14/17 21:33 02/15/17 05:27 02/15/17 20:02 Total Creatine Kinase 354 U/L Creatine Kinase MB 2.5 NG/ML Creatine Kinase MB % 0.7 % Troponin I 1.44 NG/ML 1.44 NG/ML 5.53 NG/ML B-Type Natriuretic Peptide 1842 PG/ML Blood Urea Nitrogen 31 MG/DL Creatinine 1.98 MG/DL Random Glucose 242 MG/DL Calcium Level 8.7 MG/DL Sodium Level 143 MEQ/L Potassium Level 2.5 MEQ/L 3.1 MEQ/L Chloride Level 108 MEQ/L Carbon Dioxide Level 18.6 MEQ/L Anion Gap 16 MEQ/L Estimat Glomerular Filtration Rate 34 ML/MIN Phosphorus Level 2.0 MG/DL Magnesium Level 1.9 MG/DL Test 02/16/17 06:47 Blood Urea Nitrogen 34 MG/DL Creatinine 1.95 MG/DL Random Glucose 332 MG/DL Calcium Level 8.7 MG/DL Sodium Level 144 MEQ/L Potassium Level 2.7 MEQ/L Chloride Level 108 MEQ/L Carbon Dioxide Level 19.5 MEQ/L Anion Gap 17 MEQ/L Estimat Glomerular Filtration Rate 34 ML/MIN Microbiology Date/Time Source Procedure Growth Status 02/14/17 17:05 Blood Peripheral Aerobic Blood Culture - Preliminary NO GROWTH IN 2 DAYS Resulted 02/14/17 17:05 Blood Peripheral Anaerobic Blood Culture - Preliminary NO GROWTH IN 2 DAYS Resulted 02/14/17 17:00 Blood Peripheral Aerobic Blood Culture - Preliminary NO GROWTH IN 2 DAYS Resulted 02/14/17 17:00 Blood Peripheral Anaerobic Blood Culture - Preliminary NO GROWTH IN 2 DAYS Resulted 02/15/17 14:40 Cerebral Spinal Fluid Lumbar Puncture Fungal Smear - Final NO FUNGAL ELEMENTS SEEN. Resulted 02/15/17 14:40 Cerebral Spinal Fluid Lumbar Puncture Fungal Culture Pending Resulted 02/15/17 14:40 Cerebral Spinal Fluid Lumbar Puncture Acid Fast Stain Pending Received 02/15/17 14:40 Cerebral Spinal Fluid Lumbar Puncture Mycobacterial Culture Pending Received 02/15/17 14:40 Cerebral Spinal Fluid Lumbar Puncture Gram Stain - Final Resulted 02/15/17 14:40 Cerebral Spinal Fluid Lumbar Puncture CSF Culture - Preliminary NO GROWTH IN 24 HOURS. Resulted Imaging Last Impressions Lumbar Puncture Fluoroscopy 02/15/17 0000 Signed Impressions: Service Date/Time: Wednesday, February 15, 2017 14:28 - CONCLUSION: Uncomplicated fluoroscopically guided lumbar puncture. Martir Zendejas MD Chest X-Ray 02/15/17 0000 Signed Impressions: Service Date/Time: Wednesday, February 15, 2017 09:53 - CONCLUSION: Stable chest. Reuben Rossi MD Head CT 02/11/17 0815 Signed Impressions: Service Date/Time: Saturday, February 11, 2017 08:53 - CONCLUSION: 1. There is intracranial air and left scalp edema, consistent with deep brain stimulator placement 2 days ago. The distal tip of the deep brain stimulator is in the region of the left basal ganglia and thalamus. 2. Otherwise, no acute finding is identified. Martir Cummings MD Physical Exam CONSTITUTIONAL/GENERAL: This is an adequately nourished patient, in apparent distress. Moaning but can not explain TUBES/LINES/DRAINS: SKIN: No jaundice, rashes, or lesions. . Skin temperature appropriate. Not diaphoretic. HEAD: Normocephalic. L parietal area with healing incision , no fluctuance, no drainage or redness EYES: Pupils equal and round and reactive. Extraocular motions intact. No scleral icterus. No injection or drainage. Fundi not examined. ENT: Hearing grossly normal. Oral mucosae without visible erythema, exudates, masses, or lesions. NECK: Trachea midline. Supple, nontender. CARDIOVASCULAR: Regular rate and rhythm without murmurs, gallops, or rubs. No JVD. Peripheral pulses symmetric. Pacer in place L chest w/o obvious fluctuance Incision appear clean RESPIRATORY/CHEST: Tachypnea, somewhat labored respirations. Clear to auscultation. Breath sounds equal bilaterally. No wheezes, rales, or rhonchi. GASTROINTESTINAL: Abdomen soft, non-tender, nondistended. No hepato-splenomegaly , or palpable masses. No guarding. Bowel sounds present. ; gonzalez in with clear yellow urine MUSCULOSKELETAL: Extremities without clubbing, cyanosis, or edema. No mottling or clubbing. NEUROLOGICAL: lethargic . non verbal, opens eyes and makes eye contact to voice; not following commands; not oriented even to his name PSYCHIATRIC: agitated Assessment & Plan Remarks Fever , headache and mental status change following deep brain stimation electrode placement 10 days prior, strongly suspect infection related to neurosurgical procedure - he is progressively worsening with obtundationa and persistent fever despite empiric abx CSF cw connor meningitis, however no growth on plates This is probable APRICOT WASHER infection related to his electrodes Pt is not showing signs of infx other than APRICOT WASHER dw Dr Sullivan - he erecommended transfer to [place] since he is not certified in those kind of procedures If indeed its infection due to the electrodes the foreing body need to be removed for cure - the procedure that can not be done in this facility; transfer is mandatory in this case I dont see any other obvious source of infection at this point He is clinically deteriorating aspeciallyhis mental status AFIb, RVR today - that precluded hinm from LP ealier He is 5 days post last time he took plavix and therefore clear for LP . Pt has Plavix x1 onThur after a whole week off - LP is postponed 2/2 recent anticoagulation; anticipate 5 days off plavix until cleareed for LP CONSUELO Acute NSTEMI with uncontrolled afib with RVR and CHF cardiology ff Critically ill and unstable Rec's: fu LP results Though unlikely will add HSV PCR to CSF and put pt on acyclovir while awaiting for the results will adjust per decreased renal fnx cont vancomycin, cefepime, flagyl Pt needs to be transfered to [place] as soon as possible Discussed Condition With sister @ b/s Dr Martir kohler RN dw pharmacist re: dosing Vandana Soto MD Feb 16, 2017 12:09
[2017-02-16] MEDS ORDERED: PANTOPRAZOLE SODIUM 40 MG VIAL IV PUSH SCH (13:00)
[2017-02-16] MEDS: ACYCLOVIR IV SCH (14:23)
[2017-02-16] MEDS: SODIUM CHLOR 0.9% IV SCH (14:23)
--- NOTE | 2017-02-16 14:34 | HHI.PR ---
Subjective Subjective Remarks Patient will randomly open eyes, but not focus well Moans, nonverbal for now Family in room Sandra fever noted today on . (Sri Lee) Review of Systems Constitutional Constitutional Remarks Unable to assess with patient (Sri Lee) Musculoskeletal MS: Weakness (Sri Lee) Neurologic Neurologic: Lethargic (Sri Lee) Vitals/Results Vital Signs Vital Signs Date Time Temp Pulse Resp B/P (MAP) Pulse Ox O2 Delivery O2 Flow Rate FiO2 02/16/17 11:00 98 22 174/85 (114) 100 02/16/17 10:01 97 25 182/98 (126) 99 02/16/17 10:00 97 28 100 02/16/17 10:00 97 02/16/17 09:19 100 19 161/90 (113) 99 02/16/17 09:01 103 27 194/102 (132) 100 02/16/17 09:00 102 31 100 02/16/17 08:19 98 Nasal Cannula 4.00 02/16/17 08:00 99.1 94 16 168/82 (110) 100 02/16/17 08:00 96 02/16/17 07:16 92 16 158/76 (103) 94 02/16/17 07:00 99 Nasal Cannula 4.00 02/16/17 07:00 98 20 180/103 (128) 95 02/16/17 06:47 94 171/85 02/16/17 06:00 97 02/16/17 04:00 87 02/16/17 04:00 98.9 91 13 178/95 (122) 02/16/17 02:00 86 02/16/17 00:00 99.3 89 20 150/81 (104) 99 02/16/17 00:00 86 02/15/17 22:00 85 02/15/17 21:19 95 Nasal Cannula 6.00 02/15/17 20:00 101.4 107 15 142/69 (93) 98 02/15/17 20:00 90 02/15/17 19:00 99 Nasal Cannula 2.00 02/15/17 18:22 101 02/15/17 18:15 100 02/15/17 18:15 100 19 173/104 (127) 98 02/15/17 18:06 96 33 175/95 (121) 93 02/15/17 18:06 96 02/15/17 18:00 102 02/15/17 18:00 102 26 191/102 (131) 93 02/15/17 17:53 101 17 197/106 (136) 98 02/15/17 17:51 101 26 215/96 (135) 97 02/15/17 17:49 103 35 174/101 (125) 97 02/15/17 17:46 101 32 177/134 (148) 98 02/15/17 17:45 101 24 97 02/15/17 17:37 103 33 180/97 (124) 96 02/15/17 17:31 103 34 191/101 (131) 98 02/15/17 17:30 102 26 97 02/15/17 17:24 103 02/15/17 17:16 101 32 172/77 (108) 96 02/15/17 17:15 101 30 96 02/15/17 17:01 99 38 189/95 (126) 98 02/15/17 17:00 99 23 98 02/15/17 16:59 98 34 184/95 (124) 98 02/15/17 16:45 101 21 184/97 (126) 99 02/15/17 16:30 100 23 172/91 (118) 99 02/15/17 16:30 100 02/15/17 16:15 97 02/15/17 16:15 97 35 174/95 (121) 96 02/15/17 16:00 98 30 172/89 (116) 98 02/15/17 16:00 98 02/15/17 15:45 97 02/15/17 15:41 96 02/15/17 15:30 96 02/15/17 15:15 95 02/15/17 15:00 96 (Sri Lee) CBC/BMP: 02/16/17 0647 02/16/17 0647 Lab Results Laboratory Tests Test 02/15/17 14:40 02/15/17 20:02 02/16/17 06:47 CSF Volume (Tube 1) 2.0 ML CSF Supernatant Color (tube 1) SLIGHTLY XANTHOCHROM CSF Gross Blood (Tube 1) 0 CSF Volume (Tube 2) 2.9 ML CSF Supernatant Color (tube 2) SLIGHTLY XANTHOCHROM CSF Gross Blood (Tube 2) 0 CSF Volume (Tube 3) 3.0 ML CSF Supernatant Color (tube 3) SLIGHTLY XANTHOCHROM CSF Gross Blood (Tube 3) 0 CSF Volume (Tube 4) 3.4 ML CSF Supernatant Color (tube 4) SLIGHTLY XANTHOCHROM CSF Gross Blood (Tube 4) 0 CSF WBC (Tube 4) 766 /MM3 CSF RBC (Tube 4) 7 /MM3 CSF Neutrophils 58 % CSF Lymphocytes 40 % CSF Monocytes 1 % CSF Basophils 1 % CSF Glucose 106 MG/DL CSF Total Protein 176.0 MG/DL Potassium Level 3.1 MEQ/L 2.7 MEQ/L White Blood Count 16.1 TH/MM3 Red Blood Count 3.36 MIL/MM3 Hemoglobin 10.9 GM/DL Hematocrit 33.9 % Mean Corpuscular Volume 101.0 FL Mean Corpuscular Hemoglobin 32.5 PG Mean Corpuscular Hemoglobin Concent 32.2 % Red Cell Distribution Width 14.1 % Platelet Count 274 TH/MM3 Mean Platelet Volume 8.0 FL Neutrophils (%) (Auto) 87.9 % Lymphocytes (%) (Auto) 6.9 % Monocytes (%) (Auto) 5.0 % Eosinophils (%) (Auto) 0.0 % Basophils (%) (Auto) 0.2 % Neutrophils # (Auto) 14.1 TH/MM3 Lymphocytes # (Auto) 1.1 TH/MM3 Monocytes # (Auto) 0.8 TH/MM3 Eosinophils # (Auto) 0.0 TH/MM3 Basophils # (Auto) 0.0 TH/MM3 CBC Comment DIFF FINAL Differential Comment Blood Urea Nitrogen 34 MG/DL Creatinine 1.95 MG/DL Random Glucose 332 MG/DL Calcium Level 8.7 MG/DL Sodium Level 144 MEQ/L Chloride Level 108 MEQ/L Carbon Dioxide Level 19.5 MEQ/L Anion Gap 17 MEQ/L Estimat Glomerular Filtration Rate 34 ML/MIN Microbiology Microbiology 02/15/17 Fungal Smear - Final, Resulted NO FUNGAL ELEMENTS SEEN. 02/15/17 Fungal Culture, Resulted Pending 02/15/17 Acid Fast Stain - Final, Resulted NO ACID FAST BACILLI SEEN 02/15/17 Mycobacterial Culture, Resulted Pending 02/15/17 Gram Stain - Final, Resulted 02/15/17 CSF Culture - Preliminary, Resulted NO GROWTH IN 24 HOURS. (Sri Lee) Physical Exam General General Appearance: No Acute Distress, Comfortable, Pale, Obese (Sri Lee. REPAIRER AND CHECKER) Eyes Eye Exam: Pupils Equal, Pupils Reactive, Sclera White (Sri Lee REPAIRER AND CHECKER) Ears & Nose Ears & Nose Exam: Nasal Mucosa [place] (Sri Lee REPAIRER AND CHECKER) Throat Throat Exam: Oral Mucosa [place] & Moist (pale) (Sri Lee REPAIRER AND CHECKER) Neck Neck Exam: Neck Supple, Trachea Midline (Sri Lee REPAIRER AND CHECKER) Pulmonary Resp Exam: Crackles, Decreased Bases, Diminished Breath Sounds (Sri Lee. REPAIRER AND CHECKER) Cardiology CV Exam: Regular, Normal Sinus Rhythm, Tachycardia, Dyspnea on Exertion (low volumes) (Sri Lee REPAIRER AND CHECKER) Gastrointestinal/Abdomen GI Exam: Soft, Non-Tender, Bowel Sounds Present (Sri Lee REPAIRER AND CHECKER) Integumentary Skin Exam: Warm, Dry (Sri LeeP) Extremeties Extremities Exam: No Edema (Sri LeeP) Neurologic Neuro Remarks Lethargic, (Sri LeeP) Psychiatric Psych Exam: Appropriate Responses (Sri LeeP) Assessment/Plan Assessment/Plan Sepsis, etiology thought to be with recent deep brain stimulator placement. Procedures related infection, possible meningitis or meningoencephalitis. Temp 99. On 02-16 -Infectious disease input appreciated, added acyclovir IV, and highly recommended transition back to [facility], leukocytosis continues to increase, Case management working on emergency transfer back to the [facility]- patient' s family in room, supportive care Continue antibiotic therapy per ID, appreciate input, monitor blood cultures, spinal tap completed on 02-15 IR, patient critical Lethargic, will weakly respond to loud verbal stimuli and tactile stimulation, moans, nonverbal Hypokalemia severe, continues to receivie IV potassium supplements Uncontrolled atrial fibrillation, controlled ventricular response for the most part now , now requiring amiodarone drip for heart rate control, cardiology consult appreciate input Type 2 diabetes, has insulin pump but also now -Patient was put on Accu-Cheks before meals and at bedtime with insulin protocol History of Coronary artery disease History myocardial infarction and stents Hypertension mild, waxes and wanes with systolic pressure, labetalol IV or Vasotec IV with parameters if greater than 180 Chronic kidney disease, continue to monitor labs for now SCDs for DVT prophylaxis, Lovenox Currently working on transition to [facility] emergently, follow-up recent surgical stimulator implants, which may need to be removed Discussed with nurse, Discussed with Dr. garcia, seen on his behalf Condition guarded and critical (Sri Lee) Assessment/Plan pt is seen & Examined d/w PT's family at bedside /answered all of their questions d/w sri d/w RN /replace k cont current IV abx cont amiodarone drip for rate control cont current tx await tx to [facility] appreciate Manhole Stripper input (Farrukh Garcia MD) Sri Lee Feb 16, 2017 14:34 Farrukh Garcia MD Feb 16, 2017 16:22
--- NOTE | 2017-02-16 15:53 | RADRPT ---
EXAM DATE/TIME: 02/16/2017 13:22 [place] COMPARISON: No previous studies available for comparison. INDICATIONS : Confirm NG tube placement. MEDICAL HISTORY : Cardiovascular disease. Tremors SURGICAL HISTORY : Appendectomy. Cholecystectomy.Coronary artery stent.neurotransmitter implant. ENCOUNTER: Subsequent ACUITY: 4 - 6 days PAIN SCORE: Non-responsive. LOCATION: Bilateral Abdomen. FINDINGS: A single supine frontal view of the abdomen shows a gas distended loop of small bowel within the mid upper abdomen. Several gas-filled loops of nondilated small bowel seen scattered throughout the rest of the abdomen. A weighted feeding tube coiled in the fundus of the stomach. No organomegaly. Pelvis is omitted from the film. Lung bases are clear. Scoliotic curvature of the spine. CONCLUSION: Weighted feeding tube coiled in the fundus of the stomach. Fredy Bernal Jr., MD on February 16, 2017 at 15:50 Board Certified Radiologist. This report was verified electronically.
[2017-02-16] MEDS ORDERED: PHARMACY ORDERED LAB ONE (16:45)
[2017-02-16] MEDS: VANCOMYCIN INJ 2,000 MG in SODIUM CHLORID 0.9% 500 ML INJ 500 ML IV SCH (17:46)
[2017-02-16] MEDS: LABETALOL HCL 100 MG/20 ML VIAL IV PUSH PRN ×2 (18:10→18:13)
[2017-02-16] MEDS: ATORVASTATIN 40 MG TAB PO SCH (20:47)
[2017-02-16] MEDS: buPROPion HCL 100 MG TAB PO SCH (20:47)
[2017-02-16] MEDS: AMIODARONE 200 MG TAB PO SCH (20:51)
[2017-02-17] VITALS (9 sets, daily range): BP systolic 136–163; BP diastolic 75–84; PULSE 68–78; RESP 11–18; TEMP 99.1–99.5; O2SAT 99–100
[2017-02-17] MEDS: INSULIN NovoLIN REGULAR SUPPLEMENTAL SCALE SQ SCH ×3 (01:00→08:44)
[2017-02-17] MEDS: metroNIDAZOLE 500 MG INJ 100 ML IV SCH (02:05)
[2017-02-17] MEDS: SODIUM CHLOR 0.9% IV SCH (02:05)
[2017-02-17] MEDS: ACYCLOVIR IV SCH (02:05)
[2017-02-17] MEDS: RESP: ALBUTEROL 2.5 MG/IPRATROPIUM 0.5 MG NEB (SCH) NEB ×2 (03:18→07:25)
[2017-02-17] MEDS: CHLORHEXIDINE GLUCONATE 2 % 1 PACK (2 CLOTHS)(taper/protocol) TOPICAL SCH (04:00)
[2017-02-17] MEDS: LABETALOL HCL 100 MG/20 ML VIAL IV PUSH PRN (05:16)
[2017-02-17 06:25] LABS: AUTOMATED NEUTROPHIL # 11.4 TH/MM3 (1.8-7.7); BASOPHIL % 0.3 % (0.0-2.0); EOSINOPHIL % 0.3 % (0.0-4.0); HEMATOCRIT 34.4 % (39.0-51.0); HEMO FLAGS DIFF FINAL; LYMPH % 7.7 % (9.0-44.0); MEAN CELL VOLUME 99.4 FL (80.0-100.0); MEAN CORPUSCULAR HEMOGLOBIN 32.1 PG (27.0-34.0); MEAN CORPUSCULAR HGB CONC 32.3 % (32.0-36.0); MONO % 6.9 % (0.0-8.0); NEUT % 84.8 % (16.0-70.0); PLATELET COUNT 276 TH/MM3 (150-450); RED BLOOD COUNT 3.46 MIL/MM3 (4.50-5.90); RED CELL DISTRIBUTION WIDTH 14.1 % (11.6-17.2); WHITE BLOOD COUNT 13.5 TH/MM3 (4.0-11.0)
[2017-02-17 06:46] LABS: ALT (GPT) 26 U/L (12-78); ANION GAP 11 MEQ/L (5-15); AST (GOT) 19 U/L (15-37); BLOOD UREA NITROGEN 33 MG/DL (7-18); CHLORIDE 115 MEQ/L (98-107); GLOMERULAR FILTRATION RATE 39 ML/MIN (>89); MAGNESIUM 2.1 MG/DL (1.5-2.5); SODIUM (NA) 150 MEQ/L (136-145)
[2017-02-17 06:49] LABS: POTASSIUM 2.7 MEQ/L (3.5-5.1)
[2017-02-17 06:50] LABS: ALKALINE PHOSPHATASE 71 U/L (45-117); TOTAL BILIRUBIN ADULT 0.6 MG/DL (0.2-1.0)
[2017-02-17] MEDS: CEFEPIME INJ 2,000 MG in SODIUM CHLORIDE 0.9% INJ 100 ML IV SCH (08:39)
[2017-02-17] MEDS: PRIMIDONE 50 MG TAB PO SCH (08:39)
[2017-02-17] MEDS: AMIODARONE 200 MG TAB PO SCH (08:40)
[2017-02-17] MEDS: CARVEDILOL 6.25 MG TAB PO SCH (08:40)
[2017-02-17] MEDS: TOPIRAMATE 100 MG TAB PO SCH (08:40)
[2017-02-17] MEDS: GABAPENTIN 400 MG CAP PO SCH (08:41)
[2017-02-17] MEDS: ISOSORBIDE MONONITRATE 30 MG TAB PO SCH (08:41)
[2017-02-17] MEDS: PROPRANOLOL HCL 20 MG TAB PO SCH (09:12)
[2017-02-17 09:41] LABS: HSV 1,PCR Negative (Negative)
--- NOTE | 2017-02-17 12:02 | HHI.CCPN ---
Subjective Remarks/Hospital Course The patient is a 71-year-old male with past medical history of hypertension, hyperlipidemia, coronary artery disease with previous [place] and stent placements, diabetes mellitus and essential tremors. He underwent deep brain nerve stimulator on February 02 at the [facility]. He was admitted to [facility] on February 11 with febrile illness, confusion and headaches. CT scan of the brain was obtained which showed intracranial air and left scalp edema consistent with previous deep brain stimulator placement. No other acute findings identified. Chest x-ray on arrival showed mild atelectasis in the lung bases, otherwise no acute cardiopulmonary abnormalities. He has been seen by Dr. Soto from infectious disease and the patient was placed on broad- spectrum antibiotics, Vancomycin, cefepime and Flagyl. Also the patient was seen by Dr. Sullivan from neurosurgery and he recommended to transfer the patient back to [facility] for further evaluation. The patient was scheduled to undergo LP by IR however was placed on hold as the patient received Plavix last . The patient was [facility]. [facility] was called this afternoon for respiratory distress. The patient was given Lasix 80 mg IV push and hydralazine 20 mg for a systolic blood pressure of 170s. He had a good response to the diuretics with a urine output of approximately 1550 ml. The patient transferred to ICU for close observation and critical care medicine was consulted for critical care management. When seen the patient is on 3 liters oxygen with sats of 97%. He is tachycardiac with heart rate of 107 and blood pressure 145/75. A chest x-ray from this afternoon showed cardiomegaly with pulmonary vascular engorgement. He also had an ABG on 2 liters oxygen which showed a pH of 7.34, CO2 32, pAO2 77, bicarb 17, sats of 93%. Most of the history was obtained from reviewing the medical records as the patient is a poor historian secondary due to his lethargy and mental status. 02/15 Patient went into Afib with RVR overnight given Lopressor 5mg IV x1, troponin increased 5.53 this morning from 1.44 seen by Cards this morning. T: 103.8. 02/16: Remains septic encephalopathy and critically ill. MAXIMUM TEMPERATURE 101.4. LP doen 02/15 consistent with meningitis (WBC 766 with 58% neutrophils, protein 176). Infection most likely related to DBS placement at [place]. Arrange for transfer to [place] emergently. Hold aspirin and all anticoagulation in anticipation of DBS removal 02/17: patient remains encephalopathic. per our case management, [place] needs [id number] consultation. I spoke with neurointensivist at [place] and he agrees with need for emergent transport, as I do. [facility] called and patient set up for emergent transfer. Objective Vital Signs Date Time Temp Pulse Resp B/P (MAP) Pulse Ox O2 Delivery O2 Flow Rate FiO2 02/17/17 10:00 72 14 148/79 (102) 100 02/17/17 08:00 99.5 02/17/17 07:28 Nasal Cannula 6.00 Intake and Output 02/17/17 02/17/17 02/17/17 07:59 15:59 23:59 Intake Total 250 ml Output Total 650 ml Balance -400 ml Result Diagram: 02/17/17 0543 02/17/17 0543 Imaging Last Impressions Chest X-Ray 02/14/17 0000 Signed Impressions: Service Date/Time: Tuesday, February 14, 2017 13:49 - CONCLUSION: Limited exam due to motion. Cardiomegaly with pulmonary vascular engorgement. Fredy Bernal Jr., MD Head CT 02/11/17 0815 Signed Impressions: Service Date/Time: Saturday, February 11, 2017 08:53 - CONCLUSION: 1. There is intracranial air and left scalp edema, consistent with deep brain stimulator placement 2 days ago. The distal tip of the deep brain stimulator is in the region of the left basal ganglia and thalamus. 2. Otherwise, no acute finding is identified. Martir Cummings MD Objective Remarks GENERAL: Patient is lying in bed critically ill confused, encephalopathy SKIN: Warm and dry. HEAD: Normocephalic. EYES: No scleral icterus. No injection or drainage. NECK: Supple, trachea midline. Mild neck stiffness CARDIOVASCULAR: tachycardic without murmurs, gallops, or rubs. RESPIRATORY: Breath sounds equal bilaterally. No accessory muscle use. GASTROINTESTINAL: Abdomen soft, non-tender, nondistended. MUSCULOSKELETAL: No cyanosis, or edema. Neuro: Non verbal. Moans intermittently. Moves all ext spontaneously, do not follow commands. pupils equal and reactive. grimaces to painful stimuli. A/P Assessment and Plan Severe sepsis Meningitis related to DBS implantation Acute encephalopathy NSTEMI Afib with RVR Essential tremor. Status post deep brain stimulator placement on February 02 at the [facility]. Acute on chronic kidney disease. Hypertension. Hyperglycemia with underlying history of diabetes mellitus. Coronary artery disease. Plan Neuro: LP findings and clinical picture consistent with meningitis related to DBS implantation Antibiotics per ID, vancomycin cefepime and Flagyl, acyclovir. Emergency transfer to [place] for DBS removal Continue with Topamax 100 mg p.o. b.i.d. and Wellbutrin [address] brain 02/11 negative for acute disease. s/p deep brain stimulator placement on February 02 at the [facility]. Haldol PRN and Precedex as needed for agitation Encephalopathy secondary to sepsis and meningitis Pulm: Continue with oxygen and maintain sats above 92%. Bronchodilators, Aspiration precautions. Protecting airway at this time CV: Monitor HR and BP and maintain MAP >65 mmHg. On Coreg, 6.25 mg b.i.d., Imdur 90 mg p.o. b.i.d., Inderal [address] NGT if patient can tolerate Labetalol PRN for SBP >160 Hold ASA in anticipation of DBS removal. Hold lisinopril due to renal failure Cards is following- Dr. Elias. Amio drip per cards : Monitor renal function Is and Os and avoid nephrotoxins. For K replacement today Hold Lasix GI: NPO, insert NGT for tube feed and meds ID: Continue with abx per ID( on cefepime, Flagyl and vancomycin). Monitor for signs of infections ( fever and WBC). blood culture and urine culture 02/11: No growth. Follow up on BC from 02/14, F/U on CSF culture 02/15 Fluid studies consistent with meningitis Discussed with ID-Dr. Soto. Heme: Monitor CBC. Endo: Continue SSI with Accu-Cheks for glycemic control. No indication for GI prophylaxis and DVT prophylaxis with SCDs. Hold Lovenox For transfer to [facility] emergently Patient is critically ill with worsening sepsis and worsening mental status. He is on appropriate antibiotics, but has evidence of worsening encephalopathy and increasing white count. will need DBS removed-transfer to [place] emergently Bar Alvarado MD Feb 17, 2017 12:02
--- NOTE | 2017-02-18 18:31 | HHI.DS ---
Discharge Summary Admission Date Feb 11, 2017 at 11:49 Discharge Date: Feb 17, 2017 Admitting Diagnosis sepsis (1) Sepsis ICD Codes: A41.9 - Sepsis, unspecified organism Status: Acute (2) Altered mental status ICD Codes: R41.82 - Altered mental status, unspecified Status: Acute (3) recent deep brain stimulator placement (4) Lactic acid acidosis ICD Codes: E87.2 - Acidosis Status: Acute (5) Hypertension ICD Codes: I10 - Hypertension Status: Chronic (6) Diabetes mellitus ICD Codes: E11.9 - Diabetes mellitus Status: Chronic (7) Hyperlipidemia ICD Codes: E78.5 - Hyperlipidemia Status: Chronic (8) Chronic kidney disease ICD Codes: N18.9 - Chronic kidney disease Status: Chronic (9) CAD (coronary artery disease) ICD Codes: I25.9 - CAD (coronary artery disease) Status: Chronic Procedures LP 02/15 CBC/BMP: 02/17/17 0543 02/17/17 0543 Significant Findings Laboratory Tests Test 02/15/17 20:02 02/16/17 06:47 02/16/17 17:45 02/17/17 05:43 Potassium Level 3.1 MEQ/L (3.5-5.1) 2.7 MEQ/L (3.5-5.1) 2.7 MEQ/L (3.5-5.1) White Blood Count 16.1 TH/MM3 (4.0-11.0) 13.5 TH/MM3 (4.0-11.0) Red Blood Count 3.36 MIL/MM3 (4.50-5.90) 3.46 MIL/MM3 (4.50-5.90) Hemoglobin 10.9 GM/DL (13.0-17.0) 11.1 GM/DL (13.0-17.0) Hematocrit 33.9 % (39.0-51.0) 34.4 % (39.0-51.0) Mean Corpuscular Volume 101.0 FL (80.0-100.0) Neutrophils (%) (Auto) 87.9 % (16.0-70.0) 84.8 % (16.0-70.0) Lymphocytes (%) (Auto) 6.9 % (9.0-44.0) 7.7 % (9.0-44.0) Neutrophils # (Auto) 14.1 TH/MM3 (1.8-7.7) 11.4 TH/MM3 (1.8-7.7) Blood Urea Nitrogen 34 MG/DL (7-18) 33 MG/DL (7-18) Creatinine 1.95 MG/DL (0.60-1.30) 1.74 MG/DL (0.60-1.30) Random Glucose 332 MG/DL (74-106) 267 MG/DL (74-106) Chloride Level 108 MEQ/L (98-107) 115 MEQ/L (98-107) Carbon Dioxide Level 19.5 MEQ/L (21.0-32.0) Anion Gap 17 MEQ/L (5-15) Estimat Glomerular Filtration Rate 34 ML/MIN (>89) 39 ML/MIN (>89) Vancomycin Level Trough 24.5 MCG/ML (5.0-10.0) Albumin 2.5 GM/DL (3.4-5.0) Sodium Level 150 MEQ/L (136-145) Imaging Last Impressions Abdomen X-Ray 02/16/17 0000 Signed Impressions: Service Date/Time: Thursday, February 16, 2017 13:22 - CONCLUSION: Weighted feeding tube coiled in the fundus of the stomach. Fredy Bernal Jr., MD Lumbar Puncture Fluoroscopy 02/15/17 0000 Signed Impressions: Service Date/Time: Wednesday, February 15, 2017 14:28 - CONCLUSION: Uncomplicated fluoroscopically guided lumbar puncture. Martir Zendejas MD Chest X-Ray 02/15/17 0000 Signed Impressions: Service Date/Time: Wednesday, February 15, 2017 09:53 - CONCLUSION: Stable chest. Reuben Rossi MD Head CT 02/11/17 0815 Signed Impressions: Service Date/Time: Saturday, February 11, 2017 08:53 - CONCLUSION: 1. There is intracranial air and left scalp edema, consistent with deep brain stimulator placement 2 days ago. The distal tip of the deep brain stimulator is in the region of the left basal ganglia and thalamus. 2. Otherwise, no acute finding is identified. Martir Cummings MD Hospital Course Mr. Torres is a 71-year-old white male with significant past medical history of hypertension, hyperlipidemia, coronary artery disease and myocardial infarction with stent, type 2 diabetes. Patient has had a history of essential tremors that was initially treated with medications per Dr. Zacarias. Because of worsening symptoms, he was referred to the [facility]. Patient underwent placement of a deep brain nerve stimulator approximately a week ago. Patient initially did well for the first couple of days, tremors did improve. However, patient was brought into the emergency room for worsening fever. Patient was somewhat confused and unable to provide details. Daughter was at bedside providing some details. Patient lives with his sister and [id number]. Apparently they were trying to manage his fever at home and was noted more tired and wanting to sleep. This morning his temperature was up to 101.5. There was no reported coughing, no sputum, no vomiting, no diarrhea. He complained of a mild headache. In the emergency room, patient was evaluated. Laboratory workup was completed. CBC remarkable for leukocytosis, WBC of 14.2, . BMP remarkable for BUN of 27, creatinine 1.58, random glucose of 311. Lactic acid was 2.3. Total bilirubin 1.3 AST 38. Sodium 134. Urinalysis positive for proteinuria and glycosuria. Culture is pending. CT of the head show intracranial air and left scalp edema, consistent with deep brain stimulator placement days ago. The distal tip of the brain stimulator is in the region of the left basal ganglia and thalamus. No acute findings identified. Chest x-ray showed Nakul deflation one-mile atelectasis at the lung bases. No acute cardiopulmonary abnormality. Patient was afebrile, temperature 98.4, pulse rate 100, respiratory rate 18, blood pressure 187/100, sats 98%. Patient was given fluid resuscitation with 1500 cc of fluids and started on IV Zosyn and Vanco. Patient's neurosurgeon at the [facility], Dr. Dunaway was contacted. As per his statement, patient could not have infection from the surgical implantation. CT scan shows postop changes. Per Dr. Dunaway, there is no particular reason to be transferring the patient to [facility] and it's okay for him to be admitted to [place]. Patient was examined in the presence of his daughter. He was noted with fever again, he desatted to 84% on room air; was placed on 2 L nasal cannula. Sats are up to 94%. Patient has incisions on his scalp from recent surgery, they are intact, no erythema. Has incision to the left chest wall that is erythematous, there is some crusting noted, no exudate, no odor. Patient has insulin pump in place which was turned off. His blood glucose was 200. Patient was admitted for further evaluation and treatment. Patient was admitted with Sepsis, etiology unclear, recent placement of deep brain stimulator.?? Procedures related infection, rule out meningitis or meningoencephalitis. -Infectious disease input appreciated, neurosurgeon is consulted -IR consulted for spinal tap, done on 02/15 - patient received 1 dose of Plavix on , -platelet function study noted/okay to proceed with spinal tap. -Neurosurgery refused to see the patient and recommended transfer back to [facility] -Continued with antibiotics, cefepime/Flagyl/vancomycin -Followed cultures closely -ID follow-up -Continued IV fluids -Checked stool for C. difficile--negative Altered mental status, likely multifactorial, sepsis -Monitored neuro status, continued to decline Essential tremors, recent placement of deep brain stimulator -Continued to monitor neuro status -Continued Mysoline -Continued Topamax Type 2 diabetes, has insulin pump, was removed. -Patient was put on Accu-Cheks before meals and at bedtime with insulin protocol Coronary artery disease History myocardial infarction and stents. -Home medications reviewed and initiated Hypertension -Home medications reviewed and initiated Chronic kidney disease -Continued with IV fluids -Monitored renal function Put on SCDs for DVT prophylaxis Attending discussed with the patient's sister, the decision was to request DNR with full active treatment. Case management was consulted to arrange transfer to [facility] On 02/14/2017, patient went into respiratory distress. [facility] was called. Critical care was consulted for management. The patient was given Lasix 80 mg IV push and hydralazine 20 mg for a systolic blood pressure of 170s. He had a good response to the diuretics with a urine output of approximately 1550 ml. The patient transferred to ICU for close observation and critical care medicine was consulted for critical care management. When seen the patient was on 3 liters oxygen with sats of 97%. He was tachycardiac with heart rate of 107 and blood pressure 145/75. A chest x-ray from this afternoon showed cardiomegaly with pulmonary vascular engorgement. He also had an ABG on 2 liters oxygen which showed a pH of 7.34, CO2 32, pAO2 77, bicarb 17, sats of 93%. On 02/15 Patient went into Afib with RVR overnight given Lopressor 5mg IV x1 , troponin increased 5.53 this morning from 1.44 seen by Cards this morning. T: 103.8. On 02/16: Remained septic encephalopathy and critically ill. MAXIMUM TEMPERATURE 101.4. LP done on 02/15 consistent with meningitis (WBC 766 with 58 % neutrophils, protein 176). Infection most likely related to DBS placement at [facility]. Preparations were made to arrange for transfer to [facility] emergently. Held aspirin and all anticoagulation in anticipation of DBS removal On 02/17: patient remained encephalopathic. Manager Etl spoke to neurointensivist at [facility] and he agreed with need for emergent transport. [facility] called and patient set up for emergent transfer. Pt Condition on Discharge: Guarded Discharge Disposition: Trnsfr to Other Facility Discharge Instructions DIET: Follow Instructions for: Nothing By Mouth Activities you can perform: Continue Bedrest Tangela Nelson Feb 18, 2017 18:31
[2017-02-18 23:52] LABS: HAEMOPHILUS FLU AG TYPE B Not Detected (Not Detected); N MENINGITIDIS GRP B/ECOLI K1 Not Detected (Not Detected); N MENINGITIDIS GRP C/W135 Not Detected (Not Detected); N.MENINGITIDIS GRP A/Y Not Detected (Not Detected); STREPTOCOCCUS PNEUMONIAE Not Detected (Not Detected)
== END 2017-02-17 12:01 | disposition short-term general hospital (02) | DRG 919 ==
LOC: NEPE 07:54 → NEDA 11:49 → N04A 14:41 → N04B 21:13 → HIMN 02-14 16:00
PROVIDERS: ADMIT Specialist; ATTEND Specialist
PROC: 009U3ZX Drainage of Spinal Canal, Percutaneous Approach, Diagnostic (ICD-10-PCS; principal; 2017-02-15)
DX: T85.79XA Infection and inflammatory reaction due to other internal prosthetic devices, implants and grafts, initial encounter (principal); R65.20 Severe sepsis without septic shock; I21.4 Non-ST elevation (NSTEMI) myocardial infarction; J96.01 Acute respiratory failure with hypoxia; G93.41 Metabolic encephalopathy; A41.9 Sepsis, unspecified organism; G03.9 Meningitis, unspecified; K31.84 Gastroparesis; I95.9 Hypotension, unspecified; N17.9 Acute kidney failure, unspecified; E11.43 Type 2 diabetes mellitus with diabetic autonomic (poly)neuropathy; I13.0 Hypertensive heart and chronic kidney disease with heart failure and stage 1 through stage 4 chronic kidney disease, or unspecified chronic kidney disease; E87.2 Acidosis; N18.3 Chronic kidney disease, stage 3 (moderate); I50.9 Heart failure, unspecified; Y83.8 Other surgical procedures as the cause of abnormal reaction of the patient, or of later complication, without mention of misadventure at the time of the procedure; I48.91 Unspecified atrial fibrillation; G25.0 Essential tremor; E11.22 Type 2 diabetes mellitus with diabetic chronic kidney disease; F32.9 Major depressive disorder, single episode, unspecified; Z96.89 Presence of other specified functional implants; E78.5 Hyperlipidemia, unspecified; I25.10 Atherosclerotic heart disease of native coronary artery without angina pectoris; Z96.41 Presence of insulin pump (external) (internal); E87.70 Fluid overload, unspecified; R19.7 Diarrhea, unspecified; E11.65 Type 2 diabetes mellitus with hyperglycemia; E87.6 Hypokalemia; I25.5 Ischemic cardiomyopathy; Z66 Do not resuscitate; Z79.4 Long term (current) use of insulin; Z79.84 Long term (current) use of oral hypoglycemic drugs; Z95.5 Presence of coronary angioplasty implant and graft; I25.2 Old myocardial infarction
CPT/HCPCS: 36600; 62270; 70450; 71010; 74000; 76937; 77003; 80048; 80053; 80202; 81001; 82550; 82552; 82805; 82945; 82948; 83605; 83735; 83880; 84100; 84132; 84157; 84484; 85025; 85027; 85576; 85610; 86403; 87015; 87040; 87070; 87086; 87102; 87116; 87205; 87206; 87493; 87529; 87641; 89051; 93005; 94640; 94664; 96361; 96365; 96375; C9113; J0131; J0133; J0282; J0360; J0692; J1170; J1650; J1815; J1940; J2270; J2405; J2543; J3010; J3370; J3480; J7030; J7040; J7050; J7060

== ENCOUNTER → 2017-05-30 | Day surgery (SDC) | payer MEDICARE, OTHER ==
[~2017-05-30] MED LIST changes: -ALLO300T2 PO; +ATOR40TA16 PO; -BETH10TA PO; +BUPR100T4 PO; -CLOP75 PO; -CRES20TA PO; -EMPA1TAB PO; -ERGO50000 PO; +HYDR-3366 PO; -IMDU30TA PO; +ISOS30TA3 PO; +JANU50TA8 PO; -JANU50TA9 PO; -LISI-360 PO; +LISI2.5T3 PO; -MULT1TAB PO; +MULT1TAB64 PO; +NIAS1000 PO; -NIAS10004 PO; -NITR.4 SL; -NORC10TA2 PO; -NOVOLOGP2 IMPLANPUMP; +OXYC1CAP PO; +PLAV75TA29 PO; -PRIM50 PO; +PRIM50TA5 PO; +PROP60TA PO; +PROPOFOL 500 MG/50 ML BTL IV ONE; -PROT40TA PO; -TOPA50TA6 PO; +TOPI100 PO
--- NOTE | 2017-05-30 13:15 | GIPROC ---
[facility] [address], [address] EGD PROCEDURE REPORT EXAM DATE: 05/30/2017 PATIENT NAME: Bala Torres MR #: [id number] BIRTHDATE: 1945 ATTENDING: Shukri Olivo MD ORDER #: [id number] COMPUTER GAME TESTER: Aly Mcdonough RN STATUS: outpatient INDICATIONS: The patient is a 72 yr old male here for an EGD due to history of esophageal reflux PROCEDURE PERFORMED: EGD w/ biopsy MEDICATIONS: None and Per Anesthesia. TOPICAL ANESTHETIC: CONSENT: The patient understands the risks and benefits of the procedure and understands that these risks include, but are not limited to: sedation, allergic reaction, infection, perforation and/or bleeding. Alternative means of evaluation and treatment include, among others: physical exam, x-rays, and/or surgical intervention. The patient elects to proceed with this endoscopic procedure. medical equipment was checked for proper function. Hand hygiene and appropriate measures for infection prevention was taken. After the risks, benefits and alternatives of the procedure were thoroughly explained, Informed consent was verified, confirmed and timeout was successfully executed by the treatment team. The patient was anesthetized with topical anesthesia and the EC-3890Li ([id number]) endoscope was introduced through the mouth and advanced to the second portion of the duodenum. Retroflexed views revealed no abnormalities The gastroscope was then slowly withdrawn and removed. ESOPHAGUS: The mucosa of the esophagus appeared normal. STOMACH: There was erythematous moderate gastritis in the gastric antrum. A biopsy was performed using cold forceps. Sample sent for histology. DUODENUM: The duodenal mucosa appeared normal in the 2nd part of the duodenum. ADVERSE EVENTS: There were no complications. IMPRESSIONS: 1. The esophagus appeared normal 2. There was erythematous gastritis in the gastric antrum; biopsy was performed 3. Normal duodenal mucosa in the 2nd part of the duodenum 4. Retroflexed views revealed no abnormalities RECOMMENDATIONS: 1. Await biopsy results. Biopsy results will not be ready for 7-10 days. If you don't hear from us in two weeks, call our office for biopsy results. 2. Continue PPI 3. Avoid NSAIDS PATIENT CONDITION: stable DISPOSITION: Home REPEAT EXAM: Return 1 year EGD pending biopsy results Shukri Olivo MD eSigned: Shukri Olivo MD 05/30/2017 1:15 PM cc: Antwan Caceres [facility] M.D[facility] PATIENT NAME: Bala Torres MR#: [id number]
--- NOTE | 2017-05-30 13:38 | GIPROC ---
[facility] [address], [address] COLONOSCOPY PROCEDURE REPORT EXAM DATE: 05/30/2017 PATIENT NAME: Bala Torres MR #: [id number] BIRTHDATE: 1945 ENDOSCOPIST: Shukri Olivo MD ORDER #: [id number] ICE CREAM DIPPER: Aly Mcdonough RN STATUS: outpatient INDICATIONS: The patient is a 72 yr old male here for a colonoscopy due to high risk patient with personal history of colonic polyps PROCEDURE PERFORMED: Colonoscopy with polypectomy MEDICATIONS: None and Per Anesthesia. PREP QUALITY: The [place] Bowel Prep Score was Right colon 2, Mid colon 1, and Left colon 2. Total = 5. ESTIMATED BLOOD LOSS: None CONSENT: The patient understands the risks and benefits of the procedure and understands that these risks include, but are not limited to: sedation, allergic reaction, infection, perforation and/or bleeding. Alternative means of evaluation and treatment include, among others: physical exam, x-rays, and/or surgical intervention. The patient elects to proceed with this endoscopic procedure. medical equipment was checked for proper function. Hand hygiene and appropriate measures for infection prevention was taken. After the risks, benefits and alternatives of the procedure were thoroughly explained, Informed consent was verified, confirmed and timeout was successfully executed by the treatment team. A digital exam revealed external hemorrhoids The EC-3890Li ([id number]) endoscope was introduced through the anus and advanced to the cecum, which was identified by both the appendix and ileocecal valve. The instrument was then slowly withdrawn as the colon was fully examined. COLON FINDINGS: A polypoid shaped sessile polyp ranging between 5-9mm in size was found in the ascending colon. A polypectomy was performed using snare cautery. The resection was complete and the polyp tissue was completely retrieved. Moderate diverticulosis was noted in the sigmoid colon. Retroflexed views revealed internal hemorrhoids, Retroflexed views revealed medium internal hemorrhoids, and Retroflexed views revealed internal hemorrhoids The scope was then completely withdrawn from the patient and the procedure terminated. PROCEDURE WITHDRAWAL TIME:12minutes ADVERSE EVENTS: There were no complications. IMPRESSIONS: 1. A sessile polyp ranging between 5-9mm in size was found in the ascending colon; polypectomy was performed using snare cautery 2. Moderate diverticulosis was noted in the sigmoid colon 3. Retroflexed views revealed internal hemorrhoids 4. Retroflexed views revealed medium internal hemorrhoids 5. Retroflexed views revealed internal hemorrhoids 6. Revealed external hemorrhoids RECOMMENDATIONS: 1. Await biopsy results. Biopsy results will not be ready for 7-10 days. If you don't hear from us in two weeks, call our office for results. 2. Benefiber 2 tsp daily 3. Continue surveillance 4. Yearly hemoccult 5. No seeds, nuts and popcorn in diet RECALL: Return 1 year Colonoscopy, pending biopsy results Shukri Olivo MD eSigned: Shukri Olivo MD 05/30/2017 1:37 PM cc: Antwan Caceres [facility] and Mratir Pringle M.D. PATIENT NAME: Bala Torres MR#: [id number]
== END | disposition home or self-care (01) ==
LOC: ESDC 10:20
PROVIDERS: ATTEND Internal Medicine Gastroenterology
DX: Z12.11 Encounter for screening for malignant neoplasm of colon (principal); Z86.010 Personal history of colon polyps; D12.2 Benign neoplasm of ascending colon; K64.4 Residual hemorrhoidal skin tags; K57.90 Diverticulosis of intestine, part unspecified, without perforation or abscess without bleeding; K64.8 Other hemorrhoids; K21.9 Gastro-esophageal reflux disease without esophagitis; K29.70 Gastritis, unspecified, without bleeding; E11.9 Type 2 diabetes mellitus without complications; Z79.4 Long term (current) use of insulin
CPT/HCPCS: 82948; 88305